=== PATIENT | male | born 1940 | race Caucasian/White ===

== ENCOUNTER 2021-02-04 08:45 | Inpatient (IN) ==
--- NOTE | 2021-02-02 09:10 | Anesthesiology Consultation ---
Date of Service February 02, 2021 Assessment & Plan (1) Encounter for pre-operative examination: PAT note at this time obtained without seeing patient in PAT clinic. Patient originally evaluated at PAT clinic for planned left anterior total hip replacement which was cancelled given priority for planned colon resection. Clearances as below already obtained. Additional reference is PAT note from 01/05/2021 with addendum. Cardiac clearance was obtained for patient's upcoming hip surgery which is now cancelled. Per cardio note 01/07/2021 = patient is considered moderate risk for cardiac complications during proposed surgery. Optimal cardiac monitoring is required during procedure. Cardiac monitoring is required for 1 hour postop. Beta-blockers are to be continued during perioperative period. 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 Per neuro response 01/06/21= it is "acceptable to hold Lovenox 24 hours prior to spinal anesthetic for the total left anterior hip replacement on 02/01/21." (Did call and speak with patient's on 01/07/21 and given instructions that last Lovenox dose will be in the evening on 01/30/21- pt's voices understanding). Per neuro letter 12/31/20= patient "has been cleared to have hip surgery on 02/01/[address] Tillman. We suggest Lovenox 1 mg/kg twice daily for 7 days and to start the first day he is to hold his Pradaxa." Neuro office will be prescribing the medication. (Will attempt to contact neuro office in regards to last dose of Lovenox prior to surgerywe will informed our office that Lovenox usually needs to be held 24 hours prior to surgery in order to get SAB) Last seen by cardio 12/03/20= pt presents for annual follow up. 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 No plans for intervention at this time. Stable BLANK- no chest pain, SOB, syncope, orthopnea, PND, palpitations or edema. Evaluation for both LE venous disease as well as art erial disease which was unremarkable. Continues with localized LE painful and mildly erythematous area. No ulceration. HTN- BP at target. Hyperlipidemia- high risk- continue on statin. Aortic stenosis- continue surveillance ECHOs. 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 CAD- HR and BP at target- no angina- stress test 2019 showed inferior MPI defect including infarct and mild periinfarct ischemia. Prior cath showed only mild CAD which was done for ischemia in same area. A fib- continue current meds. Follow up in six months. (Will send note to cardio inquiring if patient is optimized for surgery). Update from general surgery note: We had a discussion regarding his anticoagulation. They are adamantly against bridging Lovenox. In fact they do not want to go back on Pradaxa. They are aware of associated risks of things such as stroke heart attack emboli etc. I want to plan his surgery for next week so we would be holding his Pradaxa from this day forward anyway however we did discuss bridging Lovenox and again they are aware of the risks but they are not interested in anticoagulation at this point. Chart Review Chart Review: Acceptable Risk for Surgery and Patient NOT seen in Pre Admission Testing History Surgery Operation Date: 02/04/21 11:45 Proposed Procedures p Open Low Anterior Colon Resection - Arben Massey, Height/Weight Height: 5 ft 7 in Weight: 80.739 kg Allergies Allergy/AdvReac Type Severity Reaction Status Date / Time shellfish derived AdvReac Severe VIOLENT Verified 02/01/21 15:07 VOMITING alfuzosin AdvReac Intermediate DROPPED Verified 02/01/21 15:07 BLOOD PRESSURE Medications Home Medications Medication Instructions Recorded Confirmed Last Taken albuterol sulfate 90 mcg/actuation 2 puff INHALATION Q6H PRN g 12/04/20 02/01/21 Unknown aerosol inhaler (Ventolin HFA) atorvastatin 40 mg tablet (Lipitor) 40 mg PO QDD 12/04/20 02/01/21 01/25/21 metoprolol succinate 25 mg 12.5 mg PO QDD tab 12/04/20 02/01/21 01/25/21 tablet,extended release 24 hr (Toprol XL) nitroglycerin 0.4 mg sublingual 0.4 mg SUBLINGUAL Q5M PRN 12/04/20 02/01/21 Unknown tablet (Nitrostat) mirtazapine 15 mg tablet 15 mg PO HS 12/23/20 02/01/21 01/25/21 pantoprazole 40 mg granules 40 mg PO DAILY #30 ea 01/26/21 02/01/21 Unknown delayed-release for susp in packet (Protonix) aspirin 81 mg tablet,delayed 81 mg PO QPM 02/01/21 02/01/21 Unknown release Past Medical History Medical History Aneurysm of MCA Anxiety Aortic stenosis Moderate per 06/04/20 ECHO Arthritis Atrial fibrillation DX'D 06/2019-LOOP ELECTRODE IN PLACE-F/U DR ENGLE On Pradaxa CAD (coronary artery disease) Mild to moderate nonobstructive CAD per 2016 cardiac cath Chronic obstructive pulmonary disease INHALER PRN IN WINTER BREATHING STABLE - AGGREVATED BY ILLNESS Depression Enlarged prostate History of GI bleed recent 01/10/21 Hyperlipidemia Hypertension Mass of colon PAD (peripheral artery disease) S/p CEA (left side-2017) Short-term memory loss Stroke 08/31/2017-HAD TPA- F/U DR MIRNA BUSTAMANTE-SPEECH WAS AFFECTED AT THE TIME-RESOLVED TIA (transient ischemic attack) 05/2011 Past Family History Family History Brother Family history of diabetes mellitus Cancer Diabetes Aunt Breast cancer Father Heart disease Other No family history of adverse response to anesthesia Past Surgical History Surgical History H/O carotid endarterectomy LEFT 09/2017 In [place] History of adenoidectomy History of anesthesia reaction BP DROPPED WITH COLONOSCOPY X 1 History of appendectomy History of cardiac cath X 3-09/2016, 2013, 2011-[facility]-NO STENTS History of cataract surgery R/L History of colonoscopy X 3 History of esophagogastroduodenoscopy (EGD) History of herniorrhaphy R/L INGUINAL History of loop recorder PLACED/PRESENT History of tonsillectomy Patient recently underwent EGD and tolerated MAC well. Social History Smoking Status: Former smoker tobacco type: cigarettes and smokeless tobacco Do You Dip or Chew Tobacco: No (QUIT 3 YEARS AGO) Smoking End Date: QUIT 20 YEARS AGO Hx Alcohol Use: No substance use type: does not use Testing Laboratory Results WBC 8.47 RBC 4.20 Hgb 13.0 Hct 38.9 Platelet 256 PT 13.8 INR 1.4 PTT 50.6 Na 142 K 4 Cl 108 BUN 13 Cr 1.02 Glucose 84 COVID 01/22/2021 negative. 02/02/2021 pending. Electrocardiogram Date: 02/10/21 DICTATED BY: Man Gibson MD Test Reason : Blood Pressure : / mmHG Vent. Rate : 058 BPM Atrial Rate : 058 BPM P-R Int : 184 ms QRS Dur : 126 ms QT Int : 458 ms P-R-T Axes : 047 018 023 degrees QTc Int : 449 ms Sinus bradycardia Right bundle branch block Abnormal ECG On 06/04/2020: ECG shows RBBB and sinus rhythm. Chest X-Ray Date: 01/05/21 Findings: + NAD FINDINGS: PA and lateral chest radiographs are obtained pressure no priors L electronic device projects over the left lower chest. The noting atherosclerotic calcification of the thoracic aorta. The pulmonary vasculature is noncongested. There is focal eventration of the right hemidiaphragm with bibasilar scarring/atelectasis. No airspace consolidation or pleural effusion is identified. There is no pneumothorax. The skeletal structures are osteopenic. The bony thorax appears intact. IMPRESSION: No active disease in the chest. Echocardiogram Date: 06/04/20 EF: 60% LV Function: normal RWMA: + none Mildly dilated left atrium. Mild mitral regurgitation. Aortic valve is moderately calcified. Moderate aortic stenosis with a valve area of 1.09 cm2, AV mean gradient=15 mmHg. Trace tricuspid regurgitation. No aortic regurgitation. Normal right atrium. Trileaflet aortic valve. Normal PA pressure. There is trace tricuspid regurgitation. Normal PA pressure. Read by Dr. Wilian Sidhu. Other Testing Chest CT with contrast 02/01/2021: FINDINGS: There are partially calcified biapical pleural-parenchymal scarlike densities. The central airways are patent. No pneumothorax. No pleural effusions. There is mild to moderate emphysema. There is a 5 mm indeterminate pulmonary nodule within the left lower lobe on image 152. Patchy densities at the base of the left lower lobe are nonspecific but favor atelectasis/dependent change. There is a punctate calcified granuloma within the right upper lobe on image 75. Distended right internal jugular vein is noted. This may be transient from the contrast injection. No suspicious lytic or blastic osseous lesions. Please refer to same day abdomen and pelvis CT for further evaluation of the abdominal structures. A 1.8 cm hypodense lesion within the right hepatic dome favors a cyst. Normal esophagus. 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 This demonstrates up to 75% focal narrowing. There is also moderate to severe narrowing at the takeoff of the brachiocephalic artery also measuring up to 75%. This is due to the calcified plaque at these locat ions. Normal caliber thoracic aorta. The central pulmonary arteries are patent. The heart is normal in size. No pericardial effusion. Dense calcified plaque within the coronary arteries. No mediastinal or right hilar lymphadenopathy. There is a single mildly enlarged left hilar lymph node on image 153. This measures 1.5 x 1.1 cm. Evidence for a loop recorder within the left anterior chest wall. IMPRESSION: 1. A 5 mm indeterminate pulmonary nodule within the left lower lobe. 2. A single mildly enlarged left hilar lymph node measuring 1.5 x 1.1 cm. Follow-up chest CT in 6 months is recommended to evaluate for stability of the subcentimeter pulmonary nodule and left hilar lymph node.. 3. Ojlo-np-cfihgdqu emphysema. 4. 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 5. Please refer to the same day abdomen and pelvis CT for further evaluation of the abdominal structures. Abdomen/pelvis CT 02/01/2021: IMPRESSION: 1. Rectal soft tissue mass compatible with previously noted polyp. No evidence of metastatic disease. 2. Severe atherosclerotic disease. Loop recording 12/05/2020: The presenting rhythm is sinus bradycardia at 50 bpm with a 3.6 sec sinus pause. This is an abnormal implantable loop recorder remote follow-up. No significant device-related abnormalities were noted. We will continue with remote follow-up with ongoing active surveillance and monthly remote interrogation. CTA head and neck 01/14/2020: Impression: No significant change from the previous study of 08/31/2017. Again seen is markedly diminished caliber to the left vertebral artery along with calcified atherosclerotic plaque and narrowing of both interval carotid artery origins. 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 No new processes are detected. Comparison to 08/31/2017. Read by Dr. Saul Delgado. Cardiac catheterization 09/27/2016: Findings: Left main-large caliber and bifurcates into the LAD and left circumflex. No angiographically evident disease. LAD-large caliber entrance atypical. There is an ostial 40 to maybe 50% calcified lesion. Proximal segment has mild diffuse disease less than 30% stenosis. The vessel then gives off a small D1. The midsegment has mild 30% stenosis at the level of the ostium of D2. D2 is large with 50% stenosis. The distal LAD has less than 30% focal stenosis. The LAD and its branches appear angiographically similar to prior catheterization. CX-large caliber nondominant. Resume. The vessel then gives off a large OM1. Continues in the AV groove where it then gives off a large branching OM2. The distal vessel is small to medium in caliber and terminates in a small posterior lateral branch. Circumflex and its branches appear angiographically similar to prior catheterization. RCA-Large caliber dominant. Mild vessel has diffuse mild to moderate disease 30- 40% narrowing. Distal vessel has a focal 40% narrowing. The vessel then bifurcates into the PDA and posterior lateral branches which have no angiographically significant disease. The RCA and its branches appear angiographically similar to prior catheterization. Impression and plan: Mild to moderate nonocclusive coronary disease as described. No angiographic change from prior catheterization.
[~2021-02-04 08:45] MED LIST: HEPARIN SOD 5,000 UNIT/0.5 ML VIAL SQ SCH; LR 15ML/HR IV SCH
[2021-02-04] MEDS ORDERED: ONDANSETRON INJ 2 MG/ML 2 ML VIAL IV PRN ×2 (09:21→18:26)
[2021-02-04] MEDS ORDERED: ALBUTEROL 0.083% NEBU SOLN 3 ML VIAL INH PRN (09:21)
[2021-02-04] MEDS ORDERED: HYDROmorphone INJ 1 MG/ML SYRINGE IV PRN (09:21)
[2021-02-04] MEDS ORDERED: ATROPINE SULFATE 0.1 MG/ML 10ML SYR IV PRN (09:21)
[2021-02-04] MEDS ORDERED: BUPIVACAINE 0.5 % 5 MG/1 ML PF 10ML VIAL ONE (09:33)
--- NOTE | 2021-02-04 10:04 | History & Physical Bridge Note ---
Date of Service February 04, 2021 History & Physical Bridge Note I have examined the patient, reviewed the History & Physical and in the interval since the performance of the History & Physical I have noted the following changes of clinical significance: no changes noted
[2021-02-04 10:08] LABS: Partial Thromboplastin Time 27.6 Seconds (21.0-31.0); Prothrombin Time 10.4 Seconds (9.0-12.0)
[2021-02-04] MEDS ORDERED: EPINEPHrine INJ 1 MG/ML AMP ONE (10:10)
[2021-02-04] MEDS ORDERED: BUPIVACAINE 0.5 % 5 MG/1 ML MPF 30ML VIAL ONE (10:11)
--- NOTE | 2021-02-04 13:47 | Operative Report ---
PG Post Operative Report Pre & Post Diagnosis Operation Date: 02/04/21 10:25 Pre-Op Diagnosis: Colon Mass Post-Op Diagnosis: Colon Mass I identified the patient and participated in the time-out.: Yes Procedure Operation Date: 02/04/21 10:25 Actual Procedures p Open Low Anterior Colon Resection - Arben Massey DO Surgeon Arben Massey DO Customer Success Specialist annalee Serrato Estimated Blood Loss 300 Findings Consistent with Post-Op Diagnosis Specimens rectosigmoid colon Description of Procedure After informed consent was obtained the patient was taken to the operating room and placed in supine position. After successful intubation anesthesia performed a TAP block on the patient. Following this the patient was placed into a low lithotomy position and we shaved and sterilely prepped and draped the entire abdomen as well as perineum. A Mcgee catheter was placed sterilely as well. I began by making a lower midline incision from the pubic symphysis up and around the umbilicus. This was carried down through soft tissue using cautery. Anterior fascia was opened using cautery as well. Peritoneum was elevated with hemostats and incised under direct vision using a Metzenbaum scissor. Incision was then extended to both poles using cautery. Once in the abdomen we set up the Bookwalter retractor which was used throughout the procedure to help with exposure. Once in the abdomen there were a few adhesions involving small bowel in the pelvis. These were taken down using Metzenbaum scissors and finger fractionation. Once this was accomplished the small bowel was packed into the upper abdomen. We began by mobilizing the sigmoid colon along the white line of Toldt using small amounts of cautery and blunt finger dissection. We carried this down to the peritoneal reflection. We were able to identify the tattoo judith deep in the pelvis. I transected the sigmoid colon near the pelvic brim using a BEE purple cartridge stapler. We then used a LigaSure device to come down the mesentery of the sigmoid colon. We continued this down to the peritoneal reflection. I used primarily blunt finger fractionation to mobilize the retrorectal space. We hugged the anterior portion of the sacrum during this process. I took down the lateral pedicles of the rectum using the LigaSure device as well. We also used small amounts of cautery and finger fractionation to free up the rectum anteriorly. Eventually we were able to get down below the tattoo judith. I then transected the rectum using multiple firings of a BEE 30 mm purple cartridge stapler. Once we had the specimen out we passed it off to a back table. I did open it on the back table exposing the mass. Grossly we had negative margins distally. We were probably at about 5 to 6 cm from the anal verge and I did not feel the risk /benefit would warrant trying to get some additional distal margins. I then scrubbed back into the case. We clamped the bowel and opened the staple line exposing the lumen. 2-0 silk was used to create a pursestring. The anvil of a 25 mm circular stapler was placed into the end of the colon and secured using the pursestring. My assistant finance manager then went down to the rectum. He serially dilated the rectum with sizers. The handle of the EEA was then advanced into the rectum to the rectal staple line. The spike was deployed. The anvil was connected to the handle and they were secured together and fired creating a circular functional end-to-end anastomosis. Both donuts were intact. We sent the distal 1 as additional distal margin. We then insufflated the staple line under water using a rigid sigmoidoscope. There was no evidence of an anastomotic leak. We thoroughly irrigated the pelvis. There was adequate hemostasis. A 10 flat Silvio-Calloway drain was placed into the pelvis and brought out through a separate stab incision and secured to the skin using 2-0 nylon. I should mention that after creating the pursestring device and securing the anvil we did change our gloves. A final irrigation of the lower abdomen and pelvis was performed. The fascia was closed using 0-looped PDS starting at either pole running and securing them in the midline. Soft tissue was irrigated and skin was closed using skin [place]. Silver dressing was applied. The patient was awakened ,extubated and transferred to recovery in stable condition. My physician assistant finance manager was present through all parts of the procedure. He was instrumental in exposure throughout my dissection as well as with assisting with the anastomosis wound closure and dressing placement. I attest to the content of the Intraoperative Record and any orders documented therein. Any exceptions are noted below.
--- NOTE | 2021-02-04 14:22 | Anesthesiology Progress Note ---
Date of Service February 04, 2021 Anesthesia Post Procedure Vital Signs Vital Signs: Temp Pulse Pulse Resp BP Pulse Ox 02/04/21 14:15 49 L 24 149/67 H 98 02/04/21 14:05 50 L 20 161/69 H 98 02/04/21 13:55 53 L 19 162/68 H 95 02/04/21 13:45 58 L 19 144/71 H 94 02/04/21 13:39 97.3 F L 56 L 12 163/73 H 94 02/04/21 09:29 98.1 F 57 L 20 131/61 95 Pain Intensity Abdomen: Pain Intensity: 2 Transfer of Care Handoff Completed per policy Notes Mental Status: alert / awake / arousable Patient Amnestic to Procedure: Yes Nausea / Vomiting: adequately controlled Pain: adequately controlled Airway Patency, RR, SpO2: stable & adequate BP & HR: stable & adequate Hydration State: stable & adequate Anesthetic Complications: no major complications apparent and Pt Satisfied with anesthetic care
[2021-02-04] MEDS ORDERED: ceFAZolin 2000MG 2,000 MG/15 ML SYR IV ONE (16:31)
[2021-02-04] MEDS ORDERED: ALBUTEROL HFA 8 GM INHALER INH PRN (18:26)
[2021-02-04] MEDS ORDERED: NITROGLYCERIN SL 0.4 MG/TAB TAB SL PRN (18:26)
[2021-02-04] MEDS: LACTATED RINGER'S 1,000 ML IV SCH (19:55)
[2021-02-04] MEDS: MoRPHine SULFATE 4 MG/ML 1 ML CARP\\VIAL IV PRN (20:27)
[2021-02-04 20:41] LABS: Hematocrit (blood only) 39.1 % (42-52); Hemoglobin 12.8 g/dL (14.0-18.0); Immature Granulocytes # (auto) 0.03 K/uL (0.00-0.02); Immature Granulocytes % (auto) 0.2 %; Lymphocytes # (auto) 0.77 K/uL (1.2-3.4); Lymphocytes % (auto) 4.6 %; Mean Corpuscular Hemoglobin 30.2 pg (25-34); Mean Corpuscular Hgb Conc 32.7 g/dL (32-36); Mean Corpuscular Volume 92.2 fL (80-100); Mean Platelet Volume 10.2 fL (7.4-10.4); Monocytes # (auto) 1.23 K/uL (0.11-0.59); Monocytes % (auto) 7.3 %; Neutrophils # (auto) 14.84 K/uL (1.4-6.5); Neutrophils % (auto) 87.9 %; Platelet Count 279 K/uL (130-400); RDW Coefficient of Variation 13.5 % (11.5-14.5); RDW Standard Deviation 45.5 fL (36.4-46.3); Red Blood Count 4.24 M/uL (4.7-6.1); White Blood Count 16.87 K/uL (4.8-10.8)
--- NOTE | 2021-02-04 20:51 | XRay Report ---
SINGLE VIEW CHEST CLINICAL HISTORY: Hypoxia FINDINGS: An AP, portable, upright chest radiograph is compared to study dated 01/05/2021 and correlat ed with chest CT dated 02/01/2021. The cardiomediastinal silhouette is unremarkable noting atheroscler otic calcification of the thoracic aorta. Emphysema and chronic interstitial thickening is similar to previous. Calcified pleural parenchymal scarring is present at the apices. Small pleural effusions a re noted with bibasilar atelectasis. No pneumothorax is seen. The skeletal structures are osteopenic. The bony thorax is grossly intact. IMPRESSION: 1. Emphysema. 2. Small pleural effusions with bibasilar atelectasis. ACT 112: Negative or not required by law. Electronically signed by: Denny Dailey M.D. 02/04/2021 8:50 PM
[2021-02-04 20:59] LABS: Albumin Level 3.1 gm/dl (3.4-5.0); BUN Creatinine Ratio 9.2 (10-20); Calcium 8.7 mg/dl (8.5-10.1); Creatinine Clr Calc Pharmacy 50.4 ml/min; Est GFR (African American) 67.1 ml/min; Est GFR (Non-African American) 57.9 ml/min; Potassium 3.8 mmol/L (3.5-5.1)
[2021-02-04 21:02] LABS: Albumin Globulin Ratio 0.9 (0.9-2); Bilirubin,Total 0.5 mg/dl (0.2-1); Globulin 3.4 gm/dl (2.5-4.0); Total Protein 6.5 gm/dl (6.4-8.2)
[2021-02-04] MEDS: METOPROLOL SUCC 25MG EXT REL TAB PO SCH (21:43)
[2021-02-04] MEDS: ASPIRIN 81 MG ECTAB PO SCH (21:44)
[2021-02-04] MEDS: ATORVASTATIN 40 MG TAB PO SCH (21:44)
--- NOTE | 2021-02-04 22:23 | Hospitalist Consultation ---
Date of Consultation February 04, 2021 Assessment & Plan (1) Hypertension: 80 yo M w/ pMHx. of OA, COPD, MCA aneurysm, colon cancer, moderate , H/O carotid endarterectomy and PAD who is hospitalized for colectomy Hypoxia in the post operative setting requiring 3L NC with Hx. of COPD with no home O2 requirement patient is splinting on exam and likely has atelectasis vs. respiratory depression from pain medication or a mixed picture slightly soft BP currently at 99/64, HR 66 w/ leukocytosis to 16.8 in the post operative setting - XR with findings of emphysema and atelectasis - IS device given - continue to titrate oxygen and monitor WBC for signs of infection COPD Hx. with no wheezing on exam and no home controller medications - continue with as needed Albuterol s/p colectomy - pain control with Dilaudid, Morphine and Tylenol - care per. primary team - follow hgb HTN - continue home Metoprolol , moderate without aortic regurgitation on ECHO from 06/03/20 - fluids at 100/hr HLD - continue Atorvastatin PAD - restart ASA per primary team Code: DNR DNI (discussed with patient and he explained that these are his wishes and he has a living will) Diet: NPO DVT: per primary team - SCD's currently (2) PAD (peripheral artery disease): (3) H/O carotid endarterectomy: (4) Colonic mass: (5) Colon cancer: (6) Aortic stenosis, moderate: (7) Osteoarthritis of left hip: Supervising Physician Co-Signing Physician Notes Attending Addendum: I have physically seen and examined this patient, have supervised the medical residents activities, and agree with the H&P as noted above with the following exceptions as noted. Status post colectomy- Pain control post surgery per primary service Postoperative hypoxia/COPD- X-ray without signs of infection Likely secondary to recovery from operative medications Continue oxygen supplementation as noted, IS device Albuterol nebulizers every 2 hours as needed Hypertension/aortic stenosis- Continue metoprolol Continue IV fluids as noted Remaining orders and notations as noted History of Present Illness Reason for Consultation: HTN and aortic stenosis Requesting Physician: Dr. Massey Attending Physician: Arben Massey, DO History of Present Illness Andrzej Degroot is a 80-year-old male with a past medical history significant for OA, COPD, MCA aneurysm, colon cancer, moderate , H/O carotid endarterectomy and PAD who is in the hospital for a colectomy. He was feeling tired but otherwise well when I saw him this evening. He was not in pain when he was sitting still but did have abdominal pain when he moved. He brought up that he was scheduled for a left hip replacement when he was found to have a mass and lead to his surgery. He has a history of tobacco use for 50 years but none currently. He drinks one glass of wine per night and has no recreational drug use. He is not on oxygen at home and admits some shortness of breath when he is walking up stairs at home but denies any recent URI symptoms or sputum production or cough. Allergies Allergy/AdvReac Type Severity Reaction Status Date / Time shellfish derived AdvReac Severe VIOLENT Verified 02/04/21 09:24 VOMITING alfuzosin AdvReac Intermediate DROPPED Verified 02/04/21 09:24 BLOOD PRESSURE Home Medications Medication Instructions Recorded Confirmed Type albuterol sulfate 90 mcg/actuation 2 puff INHALATION Q6H PRN g 12/04/20 02/04/21 History aerosol inhaler (Ventolin HFA) atorvastatin 40 mg tablet (Lipitor) 40 mg PO QDD 12/04/20 02/04/21 History metoprolol succinate 25 mg 12.5 mg PO QDD tab 12/04/20 02/04/21 History tablet,extended release 24 hr (Toprol XL) nitroglycerin 0.4 mg sublingual 0.4 mg SUBLINGUAL Q5M PRN 12/04/20 02/04/21 History tablet (Nitrostat) mirtazapine 15 mg tablet (Remeron) 15 mg PO HS 12/23/20 02/04/21 History pantoprazole 40 mg granules 40 mg PO DAILY #30 ea 01/26/21 02/04/21 Rx delayed-release for susp in packet (Protonix) aspirin 81 mg tablet,delayed 81 mg PO QPM 02/01/21 02/04/21 History release Patient History Medical History (Updated 02/05/21 @ 15:12 by Josesito English MD) Aneurysm of MCA Anxiety Aortic stenosis Moderate per 06/04/20 ECHO Arthritis Atrial fibrillation DX'D 06/2019-LOOP ELECTRODE IN PLACE-F/U DR ENGLE On Pradaxa CAD (coronary artery disease) Mild to moderate nonobstructive CAD per 2017 cardiac cath Chronic obstructive pulmonary disease INHALER PRN IN WINTER BREATHING STABLE - AGGREVATED BY ILLNESS Depression Enlarged prostate History of GI bleed recent 01/10/21 Hyperlipidemia Hypertension Mass of colon PAD (peripheral artery disease) S/p CEA (left side-2017) Short-term memory loss Stroke 08/31/2017-HAD TPA- F/U DR MIRNA ZUNIGA BELLE-SPEECH WAS AFFECTED AT THE TIME-RESOLVED TIA (transient ischemic attack) 05/2011 Surgical History (Updated 02/05/21 @ 08:56 by Lindsey Jesus, [place]) H/O carotid endarterectomy LEFT 09/2017 In [place] History of adenoidectomy History of anesthesia reaction BP DROPPED WITH COLONOSCOPY X 1 History of appendectomy History of cardiac cath X 3-09/2016, 2013, 2011-[facility]-NO STENTS History of cataract surgery R/L History of colon resection (02/04/21) Open Low Anterior Colon Resection Dr. Massey 02-04-2021 History of colonoscopy X 3 History of esophagogastroduodenoscopy (EGD) History of herniorrhaphy R/L INGUINAL History of loop recorder PLACED/PRESENT History of tonsillectomy Family History Brother Family history of diabetes mellitus Cancer Diabetes Aunt Breast cancer Father Heart disease Other No family history of adverse response to anesthesia Social History Smoking Status: Former smoker packs per day: 1; Second Hand Exposure: Yes; Hx Alcohol Use: Yes Alcohol type: wine Hx Substance Use: No Preferred Language: Tamazight Communication Ability: Effective Iron Miner Required: No Beliefs That Will Affect Care: Synagogue Synagogue Beliefs: Christian marital status: Current Living Situation: Parent current occupational status: retired How many Children do You have: 3 Feels Safe at Home: Yes Assistive Devices: Cane Review of Systems Review of Systems: Constitutional: denies fevers, chills, nausea, vomiting, night sweats, weight loss Head: denies trauma, LOC, vision changes ENT: denies rhinorrhea, stuffiness, sneezing, sore throat Cardiac: denies chest pain, palpitations admits some right ankle swelling Pulm.: denies cough, sputum production admits shortness of breath with stairs GI: denies diarrhea, constipation admits blood in stool prior to hospitalization : denies pain or urgency admits frequency Physical Exam Constitutional: WD/WN, vitals as above Eyes: PERRL, conjunctivae normal, anicteric sclerae ENMT: external ear and nose normal, oropharynx normal Neck: normal visual inspection Respiratory: - no increased work of breathing - splinting - lungs clear with diminished bases Cardiovascular: Rate/Rhythm: regular rate - systolic murmur appreciated 2 Gastrointestinal (Abdomen): - decreased bowel sounds - bandage in place c/d/i - drain with serosanguineous drainage Skin: no rashes, warm and dry Neurologic: Speech / Cognition: normal speech Psychiatric: A+Ox3, euthymic affect Results & Data Results & Data ([facility]) Vital Signs (Past 12 Hours) Vital Signs Temp Pulse Pulse Resp BP Pulse Ox 02/04/21 21:00 66 99/64 L 93 02/04/21 20:30 75 106/63 91 02/04/21 20:05 69 101/58 L 93 02/04/21 19:55 67 119/72 92 02/04/21 19:40 76 110/70 93 02/04/21 19:36 36.6 C 73 20 122/74 92 02/04/21 19:25 74 120/62 92 02/04/21 19:10 72 131/75 91 02/04/21 19:04 97 H 02/04/21 18:00 69 22 109/59 L 92 02/04/21 17:45 64 22 113/58 L 92 02/04/21 17:30 64 22 107/56 L 93 02/04/21 17:15 66 24 113/58 L 93 02/04/21 17:00 57 L 18 120/58 L 93 02/04/21 16:45 36.2 C L 64 22 117/61 94 02/04/21 16:30 61 21 128/63 94 02/04/21 16:15 59 L 21 127/54 L 94 02/04/21 16:00 64 24 128/56 L 94 02/04/21 15:45 58 L 22 127/62 94 02/04/21 15:30 54 L 22 105/53 L 93 02/04/21 15:15 50 L 19 142/61 H 94 02/04/21 15:00 51 L 22 145/60 H 94 02/04/21 14:45 51 L 20 147/66 H 95 02/04/21 14:35 36.0 C L 51 L 20 147/64 H 95 02/04/21 14:25 51 L 20 131/64 95 02/04/21 14:15 49 L 24 149/67 H 98 02/04/21 14:05 50 L 20 161/69 H 98 02/04/21 13:55 53 L 19 162/68 H 95 02/04/21 13:45 58 L 19 144/71 H 94 02/04/21 13:39 36.3 C L 56 L 12 163/73 H 94 CBC Results Results Complete Blood Count Results: RBC 3.97 M/uL (4.7-6.1) L 02/05/21 WBC 13.09 K/uL (4.8-10.8) H 02/05/21 Hgb 11.8 g/dL (14.0-18.0) L 02/05/21 Hct 36.1 % (42-52) L 02/05/21 Plt Count 278 K/uL (130-400) 02/05/21 Chemistry (BMP) Results BMP Results: Sodium 138 mmol/L (136-145) 02/05/21 Potassium 4.4 mmol/L (3.5-5.1) 02/05/21 Chloride 106 mmol/L (98-107) 02/05/21 BUN 11 mg/dl (7-18) 02/05/21 Creatinine 1.13 mg/dl (0.6-1.4) 02/05/21 Glucose 132 mg/dl (70-99) H 02/05/21 Resident Activity Tracking Resident Involvement: Resident Care Provided Care Provided: Adult [facility] Medicine
[2021-02-05] MEDS: ACETAMINOPHEN 1,000 MG/100 ML VIAL IV PRN ×2 (00:18→13:27)
[2021-02-05] MEDS: MoRPHine SULFATE 2 MG/ML CARP IV PRN ×5 (04:08→20:22)
[2021-02-05] MEDS: LACTATED RINGER'S 1,000 ML IV SCH ×2 (04:09→16:57)
[2021-02-05 07:20] LABS: Basophils # (auto) 0.01 K/uL (0-0.2); Basophils % (auto) 0.1 %; Hematocrit (blood only) 36.1 % (42-52); Hemoglobin 11.8 g/dL (14.0-18.0); Immature Granulocytes # (auto) 0.04 K/uL (0.00-0.02); Immature Granulocytes % (auto) 0.3 %; Lymphocytes # (auto) 1.49 K/uL (1.2-3.4); Lymphocytes % (auto) 11.4 %; Mean Corpuscular Hemoglobin 29.7 pg (25-34); Mean Corpuscular Hgb Conc 32.7 g/dL (32-36); Mean Corpuscular Volume 90.9 fL (80-100); Mean Platelet Volume 9.9 fL (7.4-10.4); Monocytes # (auto) 1.63 K/uL (0.11-0.59); Monocytes % (auto) 12.5 %; Neutrophils # (auto) 9.92 K/uL (1.4-6.5); Neutrophils % (auto) 75.7 %; Platelet Count 278 K/uL (130-400); RDW Coefficient of Variation 13.5 % (11.5-14.5); Red Blood Count 3.97 M/uL (4.7-6.1); White Blood Count 13.09 K/uL (4.8-10.8)
[2021-02-05 07:52] LABS: BUN Creatinine Ratio 9.6 (10-20); Calcium 8.7 mg/dl (8.5-10.1); Creatinine Clr Calc Pharmacy 52.9 ml/min; Est GFR (African American) 70.8 ml/min; Est GFR (Non-African American) 61.1 ml/min; Potassium 4.4 mmol/L (3.5-5.1)
--- NOTE | 2021-02-05 08:02 | Surgery Progress Note ---
Date of Service February 05, 2021 Assessment & Plan (1) Colonic mass: Plan: POD 1 doing well so far ice chips only for now Keep lees until bm Dr. Krishnamurthy covering for weekend. Admission and Anticipated Discharge Date Admission Date: February 04, 2021 Subjective pt seen. having expected pain but no major complaints. Physical Exam Physical Exam: alert. nad abd: dressings dry. BRIAN serous. lees yellow. Results & Data ([facility]) Vital Signs (Past 12 Hours) Vital Signs Temp Pulse Pulse Resp BP Pulse Ox 02/05/21 06:39 92 02/05/21 03:37 36.8 C 69 17 117/65 92 02/05/21 00:00 70 10 L 102/64 92 02/04/21 23:59 79 02/04/21 23:00 36.8 C 65 15 100/64 92 02/04/21 22:30 66 108/68 91 02/04/21 22:00 64 98/61 L 89 L 02/04/21 21:30 71 92/60 L 92 02/04/21 21:00 66 99/64 L 93 02/04/21 20:30 75 106/63 91 02/04/21 20:05 71 69 101/58 L 93 PG Care Time/CCT Total # of Minutes Spent Total Time Spent with Patient: Total time spent is greater than 50% in coordination of care (as documented) at patient's floor/unit and/or counseling patient: Coding Level of Care Code None Diagnoses Colonic mass K63.89
[2021-02-05] MEDS: PANTOprazole 40 MG TAB PO SCH (08:07)
--- NOTE | 2021-02-05 10:01 | Electrocardiogram Report ---
Test Reason : Blood Pressure : / mmHG Vent. Rate : 068 BPM Atrial Rate : 068 BPM P-R Int : 146 ms QRS Dur : 122 ms QT Int : 432 ms P-R-T Axes : 032 020 010 degrees QTc Int : 459 ms Normal sinus rhythm Right bundle branch block Abnormal ECG When compared with ECG of 10-JAN-2021 11:11, No significant change was found Confirmed by Saul Martinez ([id number]) on 02/05/2021 10:00:38 AM Referred By: Arben Massey Confirmed By:Saul Martinez
--- NOTE | 2021-02-05 13:52 | Hospitalist Progress Note ---
Date of Service February 05, 2021 Assessment & Plan (1) Acute respiratory failure with hypoxia: Plan: 80 yo M w/ pMHx. of OA, COPD, MCA aneurysm, colon cancer, moderate , H/O carotid endarterectomy and PAD who is hospitalized for colectomy - Hypoxia in the post operative setting requiring 3L NC with Hx. of COPD with no home O2 requirement - Wean to SpO2 > 90% - Patient is splinting on initial post-op exam ?atelectasis vs. respiratory depression from pain medication or a mixed picture -WBC 16-->13 post-op, trend - CXR with emphysema, ?atelectasis, and new small pleural effusions. Pt with hx of mod . - CT prior with no effusions - Continue Flutter, inspiratory spirometry, titrate SpO2 - Defer abx at this time - Duonebs PRN for wheezing - BNP pending, ECHO 06/11 with EF 60%, moderate , mild LA dilation. (2) Hypertension: Plan: HTN - continue home Metoprolol - Normotensive on exam (3) PAD (peripheral artery disease): Plan: PAD - restart ASA per primary team (4) H/O carotid endarterectomy: Plan: - ASA, statin (5) Colon cancer: Plan: s/p colectomy - pain control with Dilaudid, Morphine and Tylenol - care per. primary team - follow hgb (6) Aortic stenosis, moderate: Plan: , moderate without aortic regurgitation on ECHO from 06/03/20 - ?mild pulm congestions --> decrease IVFM rate/hold (7) Chronic obstructive pulmonary disease: Plan: Hx COPD/emphysema - COPD Hx. with no wheezing on exam and no home controller medications - continue with as needed Albuterol - May followup with pulm on outpt. Pt will also require 6mo CT f/u for L hilar adenopathy. (8) Hyperlipidemia: Plan: HLD - continue Atorvastatin (9) Lymphadenopathy, hilar: Plan: - f/u outpt with pulm for emphysema as above, repeat CT scan in ~6months Plan: Code: DNR DNI (discussed with patient and he explained that these are his wishes and he has a living will) Diet: Ice chips, per primary team DVT: per primary team - SCD's currently Admission and Anticipated Discharge Date Admission Date: February 04, 2021 Subjective Sosa the bedside this morning. He reports he feels well, is slightly tender over his postsurgical site but otherwise is in no pain. Denies difficulty breathing, and reports he is comfortable in bed. Denies shortness of breath, chest pain, chest pressure, fever, chills, sweats, lightheadedness, dizziness. He reports that he has had some ankle swelling in the past, but generally does not have problems with fluid and to his knowledge his not had CHF in the past. He does have moderate aortic stenosis. Review of Systems Review of Systems: Negative except as noted in HPI Physical Exam Physical Exam: General: A&Ox3. NAD. Cooperative. HEENT: Atraumatic, normocephalic. Daily grossly intact, hearing grossly intact. Pulm: Managed at the bases with moderate air movement but grossly CTAB A&P. - wheezes, -rales, -rhonchi. Symmetrical chest rise. No increase work of breathing. No respiratory distress. Cardiac: RRR, systolic murmur present. Radial pulses intact and symmetrical. 1+ edema bilaterally, PT pulse intact bilaterally Abdominal: Nontender, nondistended, soft. BS present. Extremities: Mild lower extremity edema as noted in cardiac, otherwise hands and feet warm and dry with sensation intact to soft touch. Results & Data Results & Data ([facility]) Vital Signs (Past 12 Hours) Vital Signs Temp Pulse Pulse Resp BP BP Pulse Ox 02/05/21 12:14 36.7 C 76 20 111/75 91 02/05/21 08:01 36.5 C 69 20 132/63 93 02/05/21 08:00 65 02/05/21 06:39 92 02/05/21 03:37 36.8 C 69 17 117/65 92 PG Care Time/CCT Total # of Minutes Spent Total Time Spent with Patient: Total time spent is greater than 50% in coordination of care (as documented) at patient's floor/unit and/or counseling patient: Coding Level of Care Code 22799 Inpt Consult Level 3 Diagnoses Hypertension I10 PAD (peripheral artery disease) I73.9 H/O carotid endarterectomy Z98.890 Colon cancer C18.9 Aortic stenosis, moderate I35.0 Chronic obstructive pulmonary disease J44.9 Hyperlipidemia E78.5 Acute respiratory failure with hypoxia J96.01 Lymphadenopathy, hilar R59.0
[2021-02-05] MEDS ORDERED: ALBUT/IPRATROP 3MG/0.5MG NEB 3 ML VIAL NEB PRN (15:15)
[2021-02-05] MEDS: ATORVASTATIN 40 MG TAB PO SCH (16:58)
[2021-02-05] MEDS: METOPROLOL SUCC 25MG EXT REL TAB PO SCH (16:58)
[2021-02-05] MEDS: ENOXAPARIN INJ 30 MG/0.3 ML SYR SQ SCH (18:16)
--- NOTE | 2021-02-05 19:35 | Billing Data ---
Date of Service February 05, 2021 Coding Level of Care Code 78705 Inpt Consult Level 3
[2021-02-05] MEDS: ASPIRIN 81 MG ECTAB PO SCH (20:22)
[2021-02-06] MEDS: MoRPHine SULFATE 4 MG/ML 1 ML CARP\\VIAL IV PRN (01:21)
[2021-02-06] MEDS: LACTATED RINGER'S 1,000 ML IV SCH ×3 (01:21→21:30)
[2021-02-06] MEDS: ACETAMINOPHEN 1,000 MG/100 ML VIAL IV PRN (01:27)
[2021-02-06] MEDS: MoRPHine SULFATE 2 MG/ML CARP IV PRN ×5 (03:29→23:25)
[2021-02-06 07:06] LABS: Basophils # (auto) 0.03 K/uL (0-0.2); Basophils % (auto) 0.3 %; Eosinophils % (auto) 1.1 %; Hematocrit (blood only) 31.7 % (42-52); Hemoglobin 10.1 g/dL (14.0-18.0); Immature Granulocytes # (auto) 0.02 K/uL (0.00-0.02); Immature Granulocytes % (auto) 0.2 %; Lymphocytes # (auto) 2.07 K/uL (1.2-3.4); Lymphocytes % (auto) 22.7 %; Mean Corpuscular Hemoglobin 29.1 pg (25-34); Mean Corpuscular Hgb Conc 31.9 g/dL (32-36); Mean Corpuscular Volume 91.4 fL (80-100); Mean Platelet Volume 10.1 fL (7.4-10.4); Monocytes # (auto) 1.26 K/uL (0.11-0.59); Monocytes % (auto) 13.8 %; Neutrophils # (auto) 5.63 K/uL (1.4-6.5); Neutrophils % (auto) 61.9 %; Platelet Count 228 K/uL (130-400); RDW Coefficient of Variation 13.9 % (11.5-14.5); RDW Standard Deviation 45.6 fL (36.4-46.3); Red Blood Count 3.47 M/uL (4.7-6.1); White Blood Count 9.11 K/uL (4.8-10.8)
[2021-02-06 07:30] LABS: BUN Creatinine Ratio 11.2 (10-20); Calcium 8.3 mg/dl (8.5-10.1); Creatinine Clr Calc Pharmacy 63.9 ml/min; Est GFR (African American) 87.3 ml/min; Est GFR (Non-African American) 75.3 ml/min; Potassium 4.1 mmol/L (3.5-5.1)
--- NOTE | 2021-02-06 07:30 | Surgery Progress Note ---
Date of Service February 06, 2021 Assessment & Plan (1) History of colon resection: Plan: Patient's vital signs are stable heart rate is normal his blood pressure is slightly low His H&H is stable He is awake and alert Minimal pain His abdomen is distended with decreased bowel sounds Good clear urine output Minimal drainage Continue IV fluids and check a.m. labs Ice chips only for now Leave Mcgee Try to begin to mobilize asked for some PT and OT Admission and Anticipated Discharge Date Admission Date: February 04, 2021 Results & Data ([facility]) Vital Signs (Past 12 Hours) Vital Signs Temp Pulse Pulse Resp BP Pulse Ox 02/06/21 03:57 36.8 C 62 18 99/63 L 90 02/05/21 22:49 36.9 C 68 18 89/52 L 90 02/05/21 22:20 64 PG Care Time/CCT Total # of Minutes Spent Total Time Spent with Patient: Total time spent is greater than 50% in coordination of care (as documented) at patient's floor/unit and/or counseling patient: Coding Level of Care Code None Diagnoses History of colon resection Z90.49
[2021-02-06] MEDS: PANTOprazole 40 MG TAB PO SCH (08:27)
--- NOTE | 2021-02-06 14:21 | Hospitalist Progress Note ---
Date of Service February 06, 2021 Assessment & Plan (1) Acute respiratory failure with hypoxia: Plan: 80 yo M w/ pMHx. of OA, COPD, MCA aneurysm, colon cancer, moderate , H/O carotid endarterectomy and PAD who is hospitalized for colectomy - Hypoxia in the post operative setting requiring 3L NC with Hx. of COPD with no home O2 requirement - Wean to SpO2 > 90% - Patient is splinting on initial post-op exam ?atelectasis vs. respiratory depression from pain medication or a mixed picture -WBC 16-->13 post-op, trend. Resolved/normalized 02/06 - CXR with emphysema, ?atelectasis, and new small pleural effusions. Pt with hx of mod . - CT prior with no effusions - Continue Flutter, inspiratory spirometry, titrate SpO2 - Defer abx at this time - Duonebs PRN for wheezing - BNP normal, ECHO 06/11 with EF 60%, moderate , mild LA dilation. Breathing on room air at morning assessment, 2 L on afternoon assessment. Patient seems to improve with deep breaths and inspiratory spirometry, suspect atelectatic hypoxia with some contribution of pleural effusion likely related to fluid and moderate (2) Hypertension: Plan: HTN - continue home Metoprolol - Normotensive on exam (3) PAD (peripheral artery disease): Plan: PAD - restart ASA per primary team (4) H/O carotid endarterectomy: Plan: - ASA, statin (5) Colonic mass: (6) Colon cancer: Plan: s/p colectomy - pain control with Dilaudid, Morphine and Tylenol - care per. primary team - follow hgb (7) Aortic stenosis, moderate: Plan: , moderate without aortic regurgitation on ECHO from 06/03/20 - ?mild pulm congestions --> decrease IVFM rate/hold (8) Osteoarthritis of left hip: (9) Chronic obstructive pulmonary disease: Plan: Hx COPD/emphysema - COPD Hx. with no wheezing on exam and no home controller medications - continue with as needed Albuterol - May followup with pulm on outpt. Pt will also require 6mo CT f/u for L hilar adenopathy. (10) Hyperlipidemia: Plan: HLD - continue Atorvastatin (11) Lymphadenopathy, hilar: Plan: - f/u outpt with pulm for emphysema as above, repeat CT scan in ~6months Plan: Code: DNR DNI (discussed with patient and he explained that these are his wishes and he has a living will) Diet: Ice chips, per primary team DVT: per primary team - SCD's currently Admission and Anticipated Discharge Date Admission Date: February 04, 2021 Bryn Donnelly is seen at the bedside this morning. He reports he feels overall well, would like something to drink but understand surgery has recommended he remain only on ice chips at this time. Has some abdominal discomfort, otherwise denies pain. Denies chest pain, chest pressure, shortness of breath, difficulty breathing. On room air at time of morning assessment, 2 L at time of afternoon assessment. Review of Systems Review of Systems: 10 point review of systems negative except as in HPI Physical Exam Physical Exam: General: A&Ox3. NAD. Cooperative. HEENT: Atraumatic, normocephalic. Visual acuity grossly intact, hearing grossly intact. Pulm: Diminished in the bases, moderate to good air movement, grossly CTAB A&P. -wheezes, -rales, -rhonchi. Symmetrical chest rise. No increase work of breathing. No respiratory distress. Cardiac: RRR, systolic murmur present. Radial pulses intact and symmetrical. 1+ edema bilaterally, PT pulse intact bilaterally Abdominal: Distended, diffuse mild tenderness without focal tenderness or rebound, no rigidity/guarding. Extremities: hands and feet warm and dry with sensation intact to soft touch. Results & Data Results & Data ([facility]) Vital Signs (Past 12 Hours) Vital Signs Temp Pulse Resp BP Pulse Ox 02/06/21 11:38 36.3 C L 63 18 128/67 91 02/06/21 07:33 36.7 C 60 17 124/64 90 02/06/21 03:57 36.8 C 62 18 99/63 L 90 PG Care Time/CCT Total # of Minutes Spent Total Time Spent with Patient: Total time spent is greater than 50% in coordination of care (as documented) at patient's floor/unit and/or counseling patient: Coding Level of Care Code 45617 Subseq Hosp Care Lvl 2 Diagnoses Hypertension I10 PAD (peripheral artery disease) I73.9 H/O carotid endarterectomy Z98.890 Colonic mass K63.89 Colon cancer C18.9 Aortic stenosis, moderate I35.0 Osteoarthritis of left hip M16.12 Acute respiratory failure with hypoxia J96.01 Chronic obstructive pulmonary disease J44.9 Hyperlipidemia E78.5 Lymphadenopathy, hilar R59.0
[2021-02-06] MEDS: METOPROLOL SUCC 25MG EXT REL TAB PO SCH (16:16)
[2021-02-06] MEDS: ATORVASTATIN 40 MG TAB PO SCH (16:16)
[2021-02-06] MEDS: ENOXAPARIN INJ 30 MG/0.3 ML SYR SQ SCH (18:07)
[2021-02-06] MEDS: ASPIRIN 81 MG ECTAB PO SCH (19:56)
[2021-02-07] MEDS: MoRPHine SULFATE 2 MG/ML CARP IV PRN ×2 (02:35→16:03)
--- NOTE | 2021-02-07 06:29 | Surgery Progress Note ---
Date of Service February 07, 2021 Assessment & Plan (1) History of colon resection: Plan: Patient awake and alert Vital signs stable Passed some flatus, no bowel movement yet Abdomen is softer He walked 80 feet with physical therapist We will try some clear liquids Decrease IV Regular floor Admission and Anticipated Discharge Date Admission Date: February 04, 2021 Results & Data ([facility]) Vital Signs (Past 12 Hours) Vital Signs Temp Pulse Pulse Resp BP Pulse Ox 02/07/21 04:00 36.7 C 73 16 127/71 90 02/07/21 00:00 69 02/06/21 22:00 36.8 C 62 18 126/69 93 02/06/21 19:43 37.0 C 63 19 103/56 L 92 PG Care Time/CCT Total # of Minutes Spent Total Time Spent with Patient: Total time spent is greater than 50% in coordination of care (as documented) at patient's floor/unit and/or counseling patient: Coding Level of Care Code None Diagnoses History of colon resection Z90.49
[2021-02-07 07:04] LABS: Basophils # (auto) 0.03 K/uL (0-0.2); Basophils % (auto) 0.3 %; Eosinophils # (auto) 0.15 K/uL (0-0.5); Eosinophils % (auto) 1.6 %; Hematocrit (blood only) 35.3 % (42-52); Hemoglobin 11.5 g/dL (14.0-18.0); Immature Granulocytes # (auto) 0.03 K/uL (0.00-0.02); Immature Granulocytes % (auto) 0.3 %; Lymphocytes # (auto) 1.95 K/uL (1.2-3.4); Lymphocytes % (auto) 21.1 %; Mean Corpuscular Hemoglobin 29.6 pg (25-34); Mean Corpuscular Hgb Conc 32.6 g/dL (32-36); Monocytes # (auto) 1.02 K/uL (0.11-0.59); Neutrophils # (auto) 6.07 K/uL (1.4-6.5); Neutrophils % (auto) 65.7 %; Platelet Count 269 K/uL (130-400); RDW Coefficient of Variation 13.8 % (11.5-14.5); RDW Standard Deviation 45.9 fL (36.4-46.3); Red Blood Count 3.88 M/uL (4.7-6.1); White Blood Count 9.25 K/uL (4.8-10.8)
[2021-02-07 07:25] LABS: BUN Creatinine Ratio 14.1 (10-20); Calcium 8.8 mg/dl (8.5-10.1); Creatinine Clr Calc Pharmacy 72.3 ml/min; Est GFR (African American) 95.8 ml/min; Est GFR (Non-African American) 82.7 ml/min; Potassium 3.5 mmol/L (3.5-5.1)
[2021-02-07] MEDS: LACTATED RINGER'S 1,000 ML IV SCH ×2 (07:29→20:17)
[2021-02-07] MEDS ORDERED: LACTATED RINGER'S 250 ML IV ONE (07:34)
[2021-02-07] MEDS: POTASSIUM CHLORIDE CRTAB 20 MEQ TABCR PO SCH ×2 (11:05→20:20)
[2021-02-07] MEDS: PANTOprazole 40 MG TAB PO SCH (11:05)
--- NOTE | 2021-02-07 11:41 | Hospitalist Progress Note ---
Date of Service February 07, 2021 Assessment & Plan (1) Acute respiratory failure with hypoxia: Plan: 80 yo M w/ pMHx. of OA, COPD, MCA aneurysm, colon cancer, moderate , H/O carotid endarterectomy and PAD who is hospitalized for colectomy - Hypoxia in the post operative setting requiring 3L NC with Hx. of COPD with no home O2 requirement - Wean to SpO2 > 90% - Patient is splinting on initial post-op exam ?atelectasis vs. respiratory depression from pain medication or a mixed picture -WBC 16-->13 post-op, trend. Resolved/normalized 02/06 - CXR with emphysema, ?atelectasis, and new small pleural effusions. Pt with hx of mod . - CT prior with no effusions - Continue Flutter, inspiratory spirometry, titrate SpO2 - Defer abx at this time - Duonebs PRN for wheezing - BNP normal, ECHO 06/11 with EF 60%, moderate , mild LA dilation. Breathing on room air at morning assessment, 2 L on afternoon assessment. Patient seems to improve with deep breaths and inspiratory spirometry, suspect atelectatic hypoxia with some contribution of pleural effusion likely related to fluid and moderate (2) Hypertension: Plan: HTN - continue home Metoprolol - Normotensive on exam (3) PAD (peripheral artery disease): Plan: PAD - restart ASA per primary team (4) H/O carotid endarterectomy: Plan: - ASA, statin (5) Colonic mass: (6) Colon cancer: Plan: s/p colectomy - pain control with Dilaudid, Morphine and Tylenol - care per. primary surgical team - follow hgb (7) Aortic stenosis, moderate: Plan: , moderate without aortic regurgitation on ECHO from 06/03/20 - ?mild pulm congestions --> IVFM stopped, continue oral hydration (8) Osteoarthritis of left hip: (9) Chronic obstructive pulmonary disease: Plan: Hx COPD/emphysema - COPD Hx. with no wheezing on exam and no home controller medications - continue with as needed Albuterol - May followup with pulm on outpt. Pt will also require 6mo CT f/u for L hilar adenopathy. (10) Hyperlipidemia: Plan: HLD - continue Atorvastatin (11) Lymphadenopathy, hilar: Plan: - f/u outpt with pulm for emphysema as above, repeat CT scan in ~6months Plan: Code: DNR DNI (discussed with patient and he explained that these are his wishes and he has a living will) Diet: per primary team DVT: per primary team, Lovenox 30mg Q24H + SCDs Admission and Anticipated Discharge Date Admission Date: February 04, 2021 Subjective Seen at bedside this AM. Reports feels well, no pain at rest and abdomen feels less sense/tender than previously. No questions/concerns at bedside. -BM, +flatus, -N/-V. Review of Systems Review of Systems: 10 point review of systems negative except as in HPI Physical Exam Physical Exam: General: A&Ox3. NAD. Cooperative. HEENT: Atraumatic, normocephalic. Visual acuity grossly intact, hearing grossly intact. Pulm: Diminished in the bases, moderate to good air movement, grossly CTAB A&P. -wheezes, -rales, -rhonchi. Symmetrical chest rise. No increased work of breathing. No respiratory distress. Cardiac: RRR, systolic murmur present. Radial pulses intact and symmetrical. 1+ edema bilaterally, PT pulse intact bilaterally Abdominal: Distended, mild tenderness without focal tenderness or rebound, no rigidity/guarding. Extremities: hands and feet warm and dry with sensation intact to soft touch. Results & Data Results & Data ([facility]) Vital Signs (Past 12 Hours) Vital Signs Temp Pulse Pulse Resp BP Pulse Ox 02/07/21 07:01 36.6 C 76 20 95/61 L 90 02/07/21 04:00 36.7 C 73 16 127/71 90 02/07/21 00:00 69 PG Care Time/CCT Total # of Minutes Spent Total Time Spent with Patient: Total time spent is greater than 50% in coordination of care (as documented) at patient's floor/unit and/or counseling patient: Coding Level of Care Code 60323 Subseq Hosp Care Lvl 1 Diagnoses Acute respiratory failure with hypoxia J96.01 Hypertension I10 PAD (peripheral artery disease) I73.9 H/O carotid endarterectomy Z98.890 Colonic mass K63.89 Colon cancer C18.9 Aortic stenosis, moderate I35.0 Osteoarthritis of left hip M16.12 Chronic obstructive pulmonary disease J44.9 Hyperlipidemia E78.5 Lymphadenopathy, hilar R59.0
[2021-02-07] MEDS: METOPROLOL SUCC 25MG EXT REL TAB PO SCH (17:18)
[2021-02-07] MEDS: ATORVASTATIN 40 MG TAB PO SCH (17:18)
[2021-02-07] MEDS: ENOXAPARIN INJ 30 MG/0.3 ML SYR SQ SCH (18:40)
[2021-02-07] MEDS: ASPIRIN 81 MG ECTAB PO SCH (20:18)
[2021-02-08] MEDS: MoRPHine SULFATE 2 MG/ML CARP IV PRN (03:17)
[2021-02-08 06:40] LABS: Basophils # (auto) 0.01 K/uL (0-0.2); Basophils % (auto) 0.2 %; Eosinophils # (auto) 0.21 K/uL (0-0.5); Eosinophils % (auto) 3.3 %; Hematocrit (blood only) 31.4 % (42-52); Hemoglobin 10.3 g/dL (14.0-18.0); Immature Granulocytes # (auto) 0.01 K/uL (0.00-0.02); Immature Granulocytes % (auto) 0.2 %; Lymphocytes # (auto) 1.35 K/uL (1.2-3.4); Lymphocytes % (auto) 21.4 %; Mean Corpuscular Hgb Conc 32.8 g/dL (32-36); Mean Corpuscular Volume 91.5 fL (80-100); Mean Platelet Volume 10.1 fL (7.4-10.4); Monocytes # (auto) 0.74 K/uL (0.11-0.59); Monocytes % (auto) 11.7 %; Neutrophils # (auto) 3.99 K/uL (1.4-6.5); Neutrophils % (auto) 63.2 %; Platelet Count 259 K/uL (130-400); RDW Coefficient of Variation 13.7 % (11.5-14.5); RDW Standard Deviation 45.8 fL (36.4-46.3); Red Blood Count 3.43 M/uL (4.7-6.1); White Blood Count 6.31 K/uL (4.8-10.8)
[2021-02-08 07:06] LABS: BUN Creatinine Ratio 9.9 (10-20); Calcium 8.5 mg/dl (8.5-10.1); Creatinine Clr Calc Pharmacy 77.8 ml/min; Est GFR (African American) 98.8 ml/min; Est GFR (Non-African American) 85.3 ml/min; Potassium 3.6 mmol/L (3.5-5.1)
[2021-02-08] MEDS: PANTOprazole 40 MG TAB PO SCH (07:34)
[2021-02-08] MEDS: POTASSIUM CHLORIDE CRTAB 20 MEQ TABCR PO SCH ×2 (07:34→20:29)
--- NOTE | 2021-02-08 08:43 | Hospitalist Progress Note ---
Date of Service February 08, 2021 Assessment & Plan (1) Acute respiratory failure with hypoxia: Plan: 80 yo M w/ pMHx. of OA, COPD, MCA aneurysm, colon cancer, moderate , H/O carotid endarterectomy and PAD who is hospitalized for colectomy by Dr Massey on 02/04 - Hypoxia in the post operative setting requiring 3L NC with Hx. of COPD with no home O2 requirement - Wean to SpO2 > 90% - Patient is splinting on initial post-op exam ?atelectasis vs. respiratory dep ression from pain medication or a mixed picture -WBC 16-->13 post-op, trend. Resolved/normalized 02/06 and remains afebrile - CXR with emphysema, ?atelectasis, and new small pleural effusions. Pt with hx of mod . - CT prior with no effusions - Continue Flutter, inspiratory spirometry, titrate SpO2 to maintain 90% --> Wean O2 as tolerated 02/08 POD 4 colon mass removal w Dr Massey -- see below. Attempting to get out of bed more with PT. Maintaining urias and BRIAN drain Will also check Mag. K 3.6 but consider adding some oral supplementation to keep closer to 4. Continued to need supplemental O2 -- (recorded 83%on 2L but per RN he was actually 93%) Continue duonebs, IS, flutter valve WBC wnl Afebrile BNP wnl and ECHO on 06/11 with EF 60%, moderate , mild LA dilation. IVF reported as stopped, but have been continued. Messaged PA from surgery about d/c vs decreased rate. Repeat CXR pending -- if still w overload, consider dose of diuretics or decreased rate IVF Has been tolerating clear liquid diet Breathing on room air at morning assessment, 2 L on afternoon assessment. Patient seems to improve with deep breaths and inspiratory spirometry, suspect atelectatic hypoxia with some contribution of pleural effusion likely related to fluid and moderate (2) Aortic stenosis, moderate: Plan: , moderate without aortic regurgitation on ECHO from 06/03/20 - ?mild pulm congestions --> IVFM stopped (reported but is still on), continue oral hydration Could be contributing to continued hypoxia Messaging primary about stopping IVF as he has continued to tolerate clear diet without issue (3) Hypertension: Plan: BP controlled 137/69 Continue metoprolol Monitor (4) PAD (peripheral artery disease): Plan: PAD - restarted ASA by primary service (5) H/O carotid endarterectomy: Plan: - ASA, statin (6) Colonic mass: Plan: POD # 4 open low anterior colon resection with Dr Massey Post-op management per primary Pathology pending (7) Colon cancer: Plan: s/p colectomy - pain control with Dilaudid, Morphine and Tylenol - care per. primary surgical team - follow hgb (8) Osteoarthritis of left hip: Plan: will need output f/u (9) Chronic obstructive pulmonary disease: Plan: Hx COPD/emphysema - COPD Hx. with no wheezing on exam and no home controller medications - continue with as needed Albuterol - May followup with pulm on outpt. Pt will also require 6mo CT f/u for L hilar adenopathy. May need 2 step prior to d/c Messaging primary about IVF and stopping to prevent worsening congestion Continue to monitor oxygen demands (10) Hyperlipidemia: Plan: - continue Atorvastatin (11) Lymphadenopathy, hilar: Plan: - f/u outpt with pulm for emphysema as above, repeat CT scan in ~6months Plan: Code: DNR DNI (discussed with patient and he explained that these are his wishes and he has a living will) Diet: per primary team DVT: per primary team, Lovenox 30mg Q24H + SCDs Admission and Anticipated Discharge Date Admission Date: February 04, 2021 Supervising Physician Co-Signing Physician Notes Attending Attestation - Chart reviewed in detail, care plan d/w GABI Vyas. I agree w/ the miller components of her consultation note. Jerry Cagle MD Subjective Pt eval this morning. Feeling alright. Pain controlled w ordered medications. About the same as yesterday. Endorses some shortness of breath but no cough/sputum production and has been using incentive3 spirometer and flutter valve. Passing lots of gas but still no BM. SpO2 recorded as 83% on 2L -- reported likely 93% but documented incorrectly. Discussed obtaining CXR. No fever/chills but states always cold (has 2 blankets on currently), no chest pain, nausea vomiting. Urias draining yellow urine. Unsure if BRIAN drained this morning -- currently 15-20cc serosanginous drainage. +BS throughout and dressing c/d/i with incisional pain. Questions/concerns addressed at this time. Review of Systems Review of Systems: All systems reviewed & are unremarkable except as noted in HPI & below Physical Exam Physical Exam: General: A&Ox3. NAD. Cooperative. HEENT: Atraumatic, normocephalic. Visual acuity grossly intact, hearing grossly intact. Pulm: Diminished in the bases, moderate to good air movement, grossly CTAB A&P. -wheezes, -rales, -rhonchi. Symmetrical chest rise. No increased work of breathing. No respiratory distress. on 2L NC Cardiac: RRR, systolic murmur present. Radial pulses intact and symmetrical. 1+ edema bilaterally, PT pulse intact bilaterally Abdominal: soft, minimally distended, mild tenderness jacqui-incisional (dressing c/d/i), BRIAN with serosanguineous drainage. No rigidity/guarding. Extremities: hands and feet warm and dry with sensation intact to soft touch. Results & Data Results & Data ([facility]) Vital Signs (Past 12 Hours) Vital Signs Temp Pulse Resp BP BP Pulse Ox 02/08/21 08:34 69 137/69 83 L 02/08/21 07:07 36.7 C 61 16 99/45 L 94 02/08/21 03:21 36.8 C 68 20 127/73 93 02/07/21 23:44 24 92 02/07/21 22:34 36.5 C 66 16 146/71 H 93 Laboratory Results 02/08/21 02/08/21 Range/Units 05:53 05:53 WBC 6.31 (4.8-10.8) K/uL RBC 3.43 L (4.7-6.1) M/uL Hgb 10.3 L (14.0-18.0) g/dL Hct 31.4 L (42-52) % MCV 91.5 (80-100) fL MCH 30.0 (25-34) pg MCHC 32.8 (32-36) g/dL RDW Std Deviation 45.8 (36.4-46.3) fL RDW Coeff of Kelsey 13.7 (11.5-14.5) % Plt Count 259 (130-400) K/uL MPV 10.1 (7.4-10.4) fL Immature Gran % (Auto) 0.2 % Neut % (Auto) 63.2 % Lymph % (Auto) 21.4 % [place] % (Auto) 11.7 % Eos % (Auto) 3.3 % Baso % (Auto) 0.2 % Neut # (Auto) 3.99 (1.4-6.5) K/uL Lymph # (Auto) 1.35 (1.2-3.4) K/uL [place] # (Auto) 0.74 H (0.11-0.59) K/uL Eos # (Auto) 0.21 (0-0.5) K/uL Baso # (Auto) 0.01 (0-0.2) K/uL Immature Gran # (Auto) 0.01 (0.00-0.02) K/uL Sodium 141 (136-145) mmol/L Potassium 3.6 (3.5-5.1) mmol/L Chloride 108 H (98-107) mmol/L Carbon Dioxide 26 (21-32) mmol/L Anion Gap 7.0 (3-11) BUN 8 (7-18) mg/dl Creatinine 0.78 (0.6-1.4) mg/dl Est Cr Clr Drug Dosing 77.8 ml/min Est GFR ( Amer) 98.8 ml/min Est GFR (Non-Af Amer) 85.3 ml/min BUN/Creatinine Ratio 9.9 L (10-20) Glucose 100 H (70-99) mg/dl Calcium 8.5 (8.5-10.1) mg/dl PG Care Time/CCT Total # of Minutes Spent Total Time Spent with Patient: Total time spent is greater than 50% in coordination of care (as documented) at patient's floor/unit and/or counseling patient: Coding Level of Care Code 82705 Subseq Hosp Care Lvl 3 Diagnoses Acute respiratory failure with hypoxia J96.01 Hypertension I10 PAD (peripheral artery disease) I73.9 H/O carotid endarterectomy Z98.890 Colonic mass K63.89 Colon cancer C18.9 Aortic stenosis, moderate I35.0 Osteoarthritis of left hip M16.12 Chronic obstructive pulmonary disease J44.9 Hyperlipidemia E78.5 Lymphadenopathy, hilar R59.0
[2021-02-08] MEDS: LACTATED RINGER'S 1,000 ML IV SCH (08:48)
--- NOTE | 2021-02-08 08:59 | Surgery Progress Note ---
Date of Service February 08, 2021 Assessment & Plan (1) History of colon resection: Plan: Postop day #4 Tolerating clear liquids without difficulty Awaiting full return of bowel function Pathology pending Keep Mcgee catheter and BRIAN drain. We will add Flomax if he is not already on it Discussed with nursing. Physical therapy consulted but will try to get him out of bed more today and ambulate more. Admission and Anticipated Discharge Date Admission Date: February 04, 2021 Subjective pt seen. no acute distress. pain with coughing/movement but overall no major c/o's. no bowel fx yet. Physical Exam Physical Exam: alert. oriented. nad. abd: soft. BRIAN with serous output. incision looks great. no drainage or sign of infection. Results & Data ([facility]) Vital Signs (Past 12 Hours) Vital Signs Temp Pulse Resp BP BP Pulse Ox 02/08/21 08:34 69 137/69 83 L 02/08/21 07:07 36.7 C 61 16 99/45 L 94 02/08/21 03:21 36.8 C 68 20 127/73 93 02/07/21 23:44 24 92 02/07/21 22:34 36.5 C 66 16 146/71 H 93 PG Care Time/CCT Total # of Minutes Spent Total Time Spent with Patient: Total time spent is greater than 50% in coordination of care (as documented) at patient's floor/unit and/or counseling patient: Coding Level of Care Code None Diagnoses History of colon resection Z90.49
[2021-02-08] MEDS: TAMSULOSIN HCL 0.4 MG CAP PO SCH (09:26)
--- NOTE | 2021-02-08 11:29 | XRay Report ---
XR chest 1V portable HISTORY: 80 years-old Male continued hypoxia acute hypoxia COMPARISON: Chest radiograph 02/04/2021, chest CT 02/01/2021. TECHNIQUE: Portable AP view of the chest FINDINGS: Cardiomediastinal and hilar silhouettes are unchanged. Small pleural effusions with persistent bibasi lar opacities, mildly progressed on the right. No pneumothorax. Emphysema. IMPRESSION: 1. Small pleural effusions with persistent bibasilar opacities, mildly progressed on the right sugges tive of probable atelectasis. Pneumonitis considered less likely. 2. Emphysema. ACT 112: Negative or not required by law. The above report was generated using voice recognition software. It may contain grammatical, syntax o r spelling errors. Electronically signed by: Darin Gaytan M.D. 02/08/2021 11:28 AM
[2021-02-08] MEDS: ATORVASTATIN 40 MG TAB PO SCH (16:34)
[2021-02-08] MEDS: METOPROLOL SUCC 25MG EXT REL TAB PO SCH (16:34)
[2021-02-08] MEDS: ENOXAPARIN INJ 30 MG/0.3 ML SYR SQ SCH (20:26)
[2021-02-08] MEDS: ASPIRIN 81 MG ECTAB PO SCH (20:28)
[2021-02-09 06:27] LABS: Hematocrit (blood only) 29.4 % (42-52); Hemoglobin 9.7 g/dL (14.0-18.0); Mean Corpuscular Hemoglobin 29.8 pg (25-34); Mean Corpuscular Volume 90.5 fL (80-100); Mean Platelet Volume 9.9 fL (7.4-10.4); Platelet Count 279 K/uL (130-400); RDW Coefficient of Variation 13.7 % (11.5-14.5); RDW Standard Deviation 45.4 fL (36.4-46.3); Red Blood Count 3.25 M/uL (4.7-6.1); White Blood Count 7.12 K/uL (4.8-10.8)
[2021-02-09 07:03] LABS: BUN Creatinine Ratio 9.2 (10-20); Calcium 8.2 mg/dl (8.5-10.1); Creatinine Clr Calc Pharmacy 79.9 ml/min; Est GFR (African American) 99.9 ml/min; Est GFR (Non-African American) 86.2 ml/min; Magnesium 1.9 mg/dl (1.8-2.4); Potassium 3.3 mmol/L (3.5-5.1)
[2021-02-09] MEDS ORDERED: POTASSIUM CHLORIDE CRTAB 20 MEQ TABCR PO STA (07:59)
--- NOTE | 2021-02-09 08:06 | Hospitalist Progress Note ---
Date of Service February 09, 2021 Assessment & Plan (1) Acute respiratory failure with hypoxia: Plan: 80 yo M w/ pMHx. of OA, COPD, MCA aneurysm, colon cancer, moderate , H/O carotid endarterectomy and PAD who is hospitalized for colectomy by Dr Massey on 02/04 Hypoxia in postoperative setting requiring 3 L nasal cannula with a history of COPD and no home oxygen requirement Postop day 5 colon mass removal with Dr. Massey White blood count 16 and normalized on 02/06 and patient has remained afebrile Chest x-ray did show emphysema and questionable atelectasis with new small pleural effusions and patient with moderate aortic stenosis BNP within normal limits and echo from May of this year with an EF of 60%, moderate aortic stenosis and mild left atrial dilation CT of the chest previously without any effusions however did note some abnormal findings that will need follow-up CAT scan imaging in 6 months for surveillance and possible pulmonary follow-up which has been notified to general surgery team and they will arrange for follow-up at discharge IV fluids had been previously documented is discontinued but were continued through evening of 02/08 but after discussion with primary service and patient able to keep up with oral intake this was discontinued and patient has remained stable on room air since that time given repeat chest x-ray prior to discontinuation with progressive atelectasis White blood count remains normal limits and patient remains afebrile Had been up walking with therapy this afternoon and encouraged more frequent ambulation Continue pulmonary toilet with flutter valve and incentive spirometry Supplemental oxygenation as needed, DuoNebs as needed Given his reported shortness of breath and concerns for malignancy did also check iron studies which showed iron low at 18 and ordered dose of Venofer IV for today and will repeat tomorrow and would ideally complete 3 days if remains inpatient Continue to monitor (2) Colonic mass: Plan: POD # 5 open low anterior colon resection with Dr Massey Post-op management per primary Pathology pending mag 1.9 -- will give 1 gm to get closer to 2 which should also help w bowels Hemoglobin 9.7 and giving iron as above Pain management, bowel regimen, PT/OT, DVT prophylaxis with Lovenox per primary service Plans for rehab discharge Continue to monitor labs (3) Aortic stenosis, moderate: Plan: , moderate without aortic regurgitation on ECHO from 06/03/20 IV fluids had been continued through 02/08 but have since been discontinued and patient remains on room air Suspect volume overload contributing to hypoxia as above (4) Hypertension: Plan: BP controlled Continue metoprolol Monitor (5) PAD (peripheral artery disease): Plan: restarted ASA by primary service (6) H/O carotid endarterectomy: Plan: Continue ASA, statin (7) Colon cancer: Plan: s/p colectomy - pain control with Dilaudid, Morphine and Tylenol - care per. primary surgical team - follow hgb Anemic with iron studies showing deficiency and getting benefit as above (8) Osteoarthritis of left hip: Plan: will need output f/u (9) Chronic obstructive pulmonary disease: Plan: Hx COPD/emphysema - COPD Hx. with no wheezing on exam and no home controller medications - continue with as needed Albuterol - May followup with pulm on outpt. Pt will also require 6mo CT f/u for L hilar adenopathy. May need 2 step prior to d/c Messaging primary about IVF and stopping to prevent worsening congestion as above and this has been discontinued and no longer requiring supplemental oxygen (10) Hyperlipidemia: Plan: continue Atorvastatin (11) Lymphadenopathy, hilar: Plan: - f/u outpt with pulm for emphysema as above, repeat CT scan in ~6months (12) History of colon resection: Plan: Postop day 5 as above (13) Anemia: Plan: Normocytic B12 within normal limits Hemoglobin 9.7iron low at 18 above and ordered Venofer and will repeat tomorrow and complete 3 days if remains inpatient (14) Iron deficiency: Plan: Low at 18supplementation above (15) Hypokalemia: Plan: Potassium low at 3.3 Mag 1.9 Already on potassium supplementation 20 mEq p.o. twice daily and ordered extra 40 mEq this morning. Monitor on a.m. labs and increase supplementation as needed (16) Urinary retention: Plan: Mcgee placed on 02/07 evening for urinary retentionhas some blood-tinged urine in bag but no clotting Started on Flomax 0.4 mg daily on 02/08 by general surgery Per surgery maintaining Cmgee at this time but will need to monitor for retention once discontinued Plan: Code: DNR DNI (discussed with patient and he explained that these are his wishes and he has a living will) Diet: per primary team DVT: per primary team, Lovenox 30mg Q24H + SCDs Admission and Anticipated Discharge Date Admission Date: February 04, 2021 Supervising Physician Co-Signing Physician Notes Attending Attestation - Chart reviewed in detail, care plan d/w GABI Vyas. I agree w/ the miller components of her consultation note. Jerry Cagle MD Subjective Patient this morning. States that his pain is slightly improved compared to days past. He is passing lots of gas but still without a bowel movement. Seen by general surgery this morning and diet was advanced to full liquids. Discussed magnesium 1.9 will give 1 g to help stimulate bowels and get closer to 2. He states that his breathing is improved and he denies any shortness of breath the current moment and is been stable on room air. IV fluids were discontinued yesterday and he has been tolerating diet without increased discomfort or issue. Discussed low iron and will give IV Venofer while inpatient daily for up to 3 days depending on how long he remains inpatient as we would want to avoid any further constipation with oral supplementation.. Mcgee has been maintained which has slight pink tinge to it but no obvious clotting. He denies any fevers, chills (outside of his usually being cold which is chronic), chest pain, shortness of breath, nausea, vomiting at this time. Review of Systems Review of Systems: All systems reviewed & are unremarkable except as noted in HPI & below Physical Exam Physical Exam: General: A&Ox3. NAD. Cooperative. HEENT: Atraumatic, normocephalic. Visual acuity grossly intact, hearing grossly intact. Pulm: Diminished in the bases, moderate to good air movement, no wheezes, rales, rhonchi. No increased work of breathing or accessory muscle use. 93% on room air Cardiac: RRR, systolic murmur. Radial pulses intact and symmetrical. Trace edema bilaterally, PT pulse intact bilaterally Abdominal: soft, minimally distended, mild tenderness jacqui-incisional (dressing c/d/i), BRIAN with serosanguineous drainage, decreased. No rigidity/guarding. Extremities: hands and feet warm and dry with sensation intact to soft touch. Results & Data Results & Data ([facility]) Vital Signs (Past 12 Hours) Vital Signs Temp Pulse Resp BP BP Pulse Ox 02/09/21 06:59 36.6 C 73 16 154/69 H 93 02/08/21 22:16 36.6 C 71 18 113/69 91 Laboratory Results 02/09/21 02/09/21 02/09/21 Range/Units 06:08 06:08 06:08 WBC 7.12 (4.8-10.8) K/uL RBC 3.25 L (4.7-6.1) M/uL Hgb 9.7 L (14.0-18.0) g/dL Hct 29.4 L (42-52) % MCV 90.5 (80-100) fL MCH 29.8 (25-34) pg MCHC 33.0 (32-36) g/dL RDW Std Deviation 45.4 (36.4-46.3) fL RDW Coeff of Kelsey 13.7 (11.5-14.5) % Plt Count 279 (130-400) K/uL MPV 9.9 (7.4-10.4) fL Sodium 137 (136-145) mmol/L Potassium 3.3 L (3.5-5.1) mmol/L Chloride 107 (98-107) mmol/L Carbon Dioxide 24 (21-32) mmol/L Anion Gap 6.0 (3-11) BUN 7 (7-18) mg/dl Creatinine 0.76 (0.6-1.4) mg/dl Est Cr Clr Drug Dosing 79.9 ml/min Est GFR ( Amer) 99.9 ml/min Est GFR (Non-Af Amer) 86.2 ml/min BUN/Creatinine Ratio 9.2 L (10-20) Glucose 108 H (70-99) mg/dl Calcium 8.2 L (8.5-10.1) mg/dl Magnesium 1.9 (1.8-2.4) mg/dl Iron 18 L (35-175) mcg/dl Vitamin B12 563 (193-986) pg/ml 02/08/21 Range/Units 05:53 WBC (4.8-10.8) K/uL RBC (4.7-6.1) M/uL Hgb (14.0-18.0) g/dL Hct (42-52) % MCV (80-100) fL MCH (25-34) pg MCHC (32-36) g/dL RDW Std Deviation (36.4-46.3) fL RDW Coeff of Kelsey (11.5-14.5) % Plt Count (130-400) K/uL MPV (7.4-10.4) fL Sodium (136-145) mmol/L Potassium (3.5-5.1) mmol/L Chloride (98-107) mmol/L Carbon Dioxide (21-32) mmol/L Anion Gap (3-11) BUN (7-18) mg/dl Creatinine (0.6-1.4) mg/dl Est Cr Clr Drug Dosing ml/min Est GFR ( Amer) ml/min Est GFR (Non-Af Amer) ml/min BUN/Creatinine Ratio (10-20) Glucose (70-99) mg/dl Calcium (8.5-10.1) mg/dl Magnesium 1.9 (1.8-2.4) mg/dl Iron (35-175) mcg/dl Vitamin B12 (193-986) pg/ml PG Care Time/CCT Total # of Minutes Spent Total Time Spent with Patient: Total time spent is greater than 50% in co ordination of care (as documented) at patient's floor/unit and/or counseling patient: Coding Level of Care Code 28685 Subseq Hosp Care Lvl 3 Diagnoses Acute respiratory failure with hypoxia J96.01 Aortic stenosis, moderate I35.0 Hypertension I10 PAD (peripheral artery disease) I73.9 H/O carotid endarterectomy Z98.890 Colonic mass K63.89 Colon cancer C18.9 Osteoarthritis of left hip M16.12 Chronic obstructive pulmonary disease J44.9 Hyperlipidemia E78.5 Lymphadenopathy, hilar R59.0 History of colon resection Z90.49 Anemia D64.9 Iron deficiency E61.1 Hypokalemia E87.6 Urinary retention R33.9
[2021-02-09] MEDS ORDERED: MAGNESIUM SULFATE / D5W 1 GM/100 ML BAG IV ONE (08:30)
[2021-02-09] MEDS: PANTOprazole 40 MG TAB PO SCH (08:35)
[2021-02-09] MEDS: POTASSIUM CHLORIDE CRTAB 20 MEQ TABCR PO SCH ×2 (08:35→20:40)
[2021-02-09] MEDS: TAMSULOSIN HCL 0.4 MG CAP PO SCH (08:35)
--- NOTE | 2021-02-09 08:43 | Surgery Progress Note ---
Date of Service February 09, 2021 Assessment & Plan (1) History of colon resection: Plan: Postop day #[address] Massey advance to full liquids Keep Mcgee catheter one more day progressing as expected Admission and Anticipated Discharge Date Admission Date: February 04, 2021 Subjective some flatus, no BM, amb halls with PT, no nausea Physical Exam Gastrointestinal (Abdomen): Inspection/Auscultation: + abdominal surgical inci paty and + abdominal surgical drain present (5 cc, 10 cc past 2 shifts) Results & Data ([facility]) Vital Signs (Past 12 Hours) Vital Signs Temp Pulse Resp BP BP Pulse Ox 02/09/21 06:59 36.6 C 73 16 154/69 H 93 02/08/21 22:16 36.6 C 71 18 113/69 91 PG Care Time/CCT Total # of Minutes Spent Total Time Spent with Patient: Total time spent is greater than 50% in coordination of care (as documented) at patient's floor/unit and/or counseling patient: Coding Level of Care Code None Diagnoses History of colon resection Z90.49
[2021-02-09 09:05] LABS: Ferritin 56.5 ng/ml (8-388)
[2021-02-09] MEDS ORDERED: IRON SUCROSE 300 MG in SODIUM CHLORIDE 0.9% 250 ML IV ONE (11:00)
[2021-02-09] MEDS: HYDROCODONE/ACETAMOPHEN 5/325MG TAB PO PRN (15:37)
[2021-02-09] MEDS: ATORVASTATIN 40 MG TAB PO SCH (16:44)
[2021-02-09] MEDS: METOPROLOL SUCC 25MG EXT REL TAB PO SCH (16:44)
[2021-02-09] MEDS: ENOXAPARIN INJ 30 MG/0.3 ML SYR SQ SCH (18:27)
[2021-02-09] MEDS: ASPIRIN 81 MG ECTAB PO SCH (20:40)
[2021-02-10] MEDS: PANTOprazole 40 MG TAB PO SCH (08:09)
[2021-02-10] MEDS: TAMSULOSIN HCL 0.4 MG CAP PO SCH (08:09)
[2021-02-10] MEDS: POTASSIUM CHLORIDE CRTAB 20 MEQ TABCR PO SCH ×2 (08:11→20:00)
--- NOTE | 2021-02-10 08:42 | Hospitalist Progress Note ---
Date of Service February 10, 2021 Assessment & Plan (1) Acute respiratory failure with hypoxia: Plan: 80 yo M w/ pMHx. of OA, COPD, MCA aneurysm, colon cancer, moderate , H/O carotid endarterectomy and PAD who is hospitalized for colectomy by Dr Massey on 02/04 Hypoxia in postoperative setting requiring 3 L nasal cannula with a history of COPD and no home oxygen requirement Postop day 5 colon mass removal with Dr. Massey White blood count 16 and normalized on 02/06 and patient has remained afebrile Chest x-ray did show emphysema and questionable atelectasis with new small pleural effusions and patient with moderate aortic stenosis BNP within normal limits and echo from May of this year with an EF of 60%, moderate aortic stenosis and mild left atrial dilation CT of the chest previously without any effusions however did note some abnormal findings that will need follow-up CAT scan imaging in 6 months for surveillance and possible pulmonary follow-up which has been notified to general surgery team and they will arrange for follow-up at discharge IV fluids had been previously documented is discontinued but were continued through evening of 02/08 but after discussion with primary service and patient able to keep up with oral intake this was discontinued and patient has remained stable on room air since that time given repeat chest x-ray prior to discontinuation with progressive atelectasis White blood count remains normal limits and patient remains afebrile Had been up walking with therapy this afternoon and encouraged more frequent ambulation Continue pulmonary toilet with flutter valve and incentive spirometry Supplemental oxygenation as needed, DuoNebs as needed 02/10 Patient continues to use incentive spirometer, flutter valve. Has not needed nebulizers and has been stable and currently 97% on room air. Denies shortness of breath. Did get a dose of Venofer yesterday 300 mg and repeated for today and will give an additional 200 mg tomorrow to improve stores for Iron low 18 No further IV fluids as patient was likely slightly volume overloaded previously. We will hold off on any Lasix at this time however could consider 20 mg IV if needed Continue to monitor (2) Colonic mass: Plan: POD # 6 open low anterior colon resection with Dr Massey Post-op management per primary Pathology without evidence for malignancy Anemia and iron stores were checked which showed an iron of 18 and is getting his second dose of Venofer today we will repeat for third dose tomorrow. Hemoglobin stable at 10.1 from previous 9.7 Continue to monitor labs Pain management, bowel regimen, PT/OT, DVT prophylaxis with Lovenox per primary service Highly encourage ambulation to help with return of bowel function Has been passing gas but no bowel movement and is been placed on a full liquid diet primary service Plans for rehab discharge Continue to monitor labs (3) Aortic stenosis, moderate: Plan: , moderate without aortic regurgitation on ECHO from 06/03/20 IV fluids had been continued through 02/08 but have since been discontinued and patient remains on room air Suspect volume overload contributing to hypoxia as above which is since resolved currently 96% on room air (4) Hypertension: Plan: BP controlled Continue metoprolol Of note was started on Flomax for urinary retention by primary service and patient has been on the lower side Continue to monitor hold with prolonged needed Monitor (5) PAD (peripheral artery disease): Plan: restarted ASA by primary service (6) H/O carotid endarterectomy: Plan: Continue ASA, statin (7) Colon cancer: Plan: s/p colectomy - pain control with Dilaudid, Morphine and Tylenol - care per. primary surgical team Anemic with iron studies showing deficiency and getting Venofer as above (8) Osteoarthritis of left hip: Plan: will need output f/u (9) Chronic obstructive pulmonary disease: Plan: Hx COPD/emphysema - COPD Hx. with no wheezing on exam and no home controller medications - continue with as needed Albuterol - May followup with pulm on outpt. Pt will also require 6mo CT f/u for L hilar adenopathy. (10) Hyperlipidemia: Plan: continue Atorvastatin (11) Lymphadenopathy, hilar: Plan: - f/u outpt with pulm for emphysema as above, repeat CT scan in ~6months (12) History of colon resection: Plan: Postop day 6 as above (13) Anemia: Plan: Normocytic B12 within normal limits Hemoglobin 9.7iron low at 18 above and ordered Venofer and will repeat tomorrow and complete 3 days if remains inpatient hgb improved to 10.1 on am labs 3rd dose venofer tomorrow CBC in AM (14) Iron deficiency: Plan: Low at 18supplementation above (15) Hypokalemia: Plan: Resolved Continue supplementation while on liquid diet for now K 3.9 (16) Urinary retention: Plan: Mcgee placed on 02/07 evening for urinary retentionhas some blood-tinged urine in bag but no clotting Started on Flomax 0.4 mg daily on 02/08 by general surgery Per surgery maintaining Mcgee at this time but will need to monitor for retention once discontinued--> d/c'd AM 02/10 and will need to monitor for retention (removed 1 hr prior to eval and nothing at that time) Plan: Code: DNR DNI (discussed with patient and he explained that these are his wishes and he has a living will) Diet: per primary team DVT: per primary team, Lovenox 30mg Q24H + SCDs Admission and Anticipated Discharge Date Admission Date: February 04, 2021 Supervising Physician Co-Signing Physician Notes Attending Attestation - Chart reviewed in detail, care plan d/w GABI Vyas. I agree w/ the miller components of her consultation note. Jerry Cagle MD Subjective Patient evaluated this morning. Passing gas but no BM. Some more abd discomfort today report but currently getting IV venofer as well. Has not been up with therapy yet today but is up in chair. Just got norco x 2 and would like something additional. Will alert surgery as well given increased discomfort.--> Was sleeping upon reentry to room for RN to assess, resting comfortable and no need for anything further at this time. Not much appetite. No fevers, chest pain, shortness of breath, vomiting. Mcgee d/c this morning and has not urinated since. Would like to avoid catheter but will need to monitor for retention. Review of Systems Review of Systems: All systems reviewed & are unremarkable except as noted in HPI & below Physical Exam Physical Exam: General: A&Ox3. NAD. Cooperative. Multiple blankets. IV Venofer currently infusing HEENT: Atraumatic, normocephalic. Visual acuity grossly intact, hearing grossly intact. Pulm: Diminished in the bases, moderate to good air movement, no wheezes, rales, rhonchi. No increased work of breathing or accessory muscle use. 97% on room air Cardiac: RRR, systolic murmur. Radial pulses intact and symmetrical. Trace edema bilaterally, PT pulse intact bilaterally Abdominal: soft, + distended, moderate tenderness jacqui-incisional (dressing c/d/i), BRIAN with serosanguineous drainage, decreased. Voluntary guarding left lower quadrant Extremities: hands and feet warm and dry with sensation intact to soft touch. Results & Data Results & Data ([facility]) Vital Signs (Past 12 Hours) Vital Signs Temp Pulse Resp BP Pulse Ox 02/10/21 07:11 36.8 C 63 18 110/66 94 02/09/21 23:10 37.1 C 71 18 91/53 L 92 Laboratory Results 02/10/21 02/10/21 Range/Units 08:50 08:50 WBC 9.81 (4.8-10.8) K/uL RBC 3.36 L (4.7-6.1) M/uL Hgb 10.1 L (14.0-18.0) g/dL Hct 30.8 L (42-52) % MCV 91.7 (80-100) fL MCH 30.1 (25-34) pg MCHC 32.8 (32-36) g/dL RDW Std Deviation 46.7 H (36.4-46.3) fL RDW Coeff of Kelsey 14.0 (11.5-14.5) % Plt Count 321 (130-400) K/uL MPV 9.9 (7.4-10.4) fL Sodium 136 (136-145) mmol/L Potassium 3.9 D (3.5-5.1) mmol/L Chloride 106 (98-107) mmol/L Carbon Dioxide 24 (21-32) mmol/L Anion Gap 6.0 (3-11) BUN 9 (7-18) mg/dl Creatinine 0.85 (0.6-1.4) mg/dl Est Cr Clr Drug Dosing 71.4 ml/min Est GFR ( Amer) 95.4 ml/min Est GFR (Non-Af Amer) 82.3 ml/min BUN/Creatinine Ratio 10.6 (10-20) Glucose 102 H (70-99) mg/dl Calcium 8.7 (8.5-10.1) mg/dl Magnesium 2.2 (1.8-2.4) mg/dl Total Bilirubin 0.8 (0.2-1) mg/dl AST 23 (15-37) U/L ALT 26 (12-78) U/L Alkaline Phosphatase 72 (45-117) U/L Total Protein 6.2 L (6.4-8.2) gm/dl Albumin 2.5 L (3.4-5.0) gm/dl Globulin 3.7 (2.5-4.0) gm/dl Albumin/Globulin Ratio 0.7 L (0.9-2) PG Care Time/CCT Total # of Minutes Spent Total Time Spent with Patient: Total time spent is greater than 50% in coordination of care (as documented) at patient's floor/unit and/or counseling patient: Coding Level of Care Code 44860 Subseq Hosp Care Lvl 3 Diagnoses Acute respiratory failure with hypoxia J96.01 Colonic mass K63.89 Aortic stenosis, moderate I35.0 Hypertension I10 PAD (peripheral artery disease) I73.9 H/O carotid endarterectomy Z98.890 Colon cancer C18.9 Osteoarthritis of left hip M16.12 Chronic obstructive pulmonary disease J44.9 Hyperlipidemia E78.5 Lymphadenopathy, hilar R59.0 History of colon resection Z90.49 Anemia D64.9 Iron deficiency E61.1 Hypokalemia E87.6 Urinary retention R33.9
--- NOTE | 2021-02-10 08:57 | Surgery Progress Note ---
Date of Service February 10, 2021 Assessment & Plan (1) Colonic mass: (2) Urinary retention: Plan: pod 6 still awaiting bm discussed hiis path report stay on full liquids for now. will try and d/c lees. continue flomas Admission and Anticipated Discharge Date Admission Date: February 04, 2021 Subjective pt seen. feeling ok. still no bm. joseph full liquids without difficulty. not much appetitie. Physical Exam Physical Exam: alert. nad sitting in chair. BRIAN serous. incision c/d/i Results & Data ([facility]) Vital Signs (Past 12 Hours) Vital Signs Temp Pulse Resp BP Pulse Ox 02/10/21 07:11 36.8 C 63 18 110/66 94 02/09/21 23:10 37.1 C 71 18 91/53 L 92 PG Care Time/CCT Total # of Minutes Spent Total Time Spent with Patient: Total time spent is greater than 50% in coordination of care (as documented) at patient's floor/unit and/or counseling patient: Coding Level of Care Code None Diagnoses Colonic mass K63.89 Urinary retention R33.9
[2021-02-10 09:25] LABS: Hematocrit (blood only) 30.8 % (42-52); Hemoglobin 10.1 g/dL (14.0-18.0); Mean Corpuscular Hemoglobin 30.1 pg (25-34); Mean Corpuscular Hgb Conc 32.8 g/dL (32-36); Mean Corpuscular Volume 91.7 fL (80-100); Mean Platelet Volume 9.9 fL (7.4-10.4); Platelet Count 321 K/uL (130-400); RDW Standard Deviation 46.7 fL (36.4-46.3); Red Blood Count 3.36 M/uL (4.7-6.1); White Blood Count 9.81 K/uL (4.8-10.8)
[2021-02-10 09:54] LABS: Albumin Globulin Ratio 0.7 (0.9-2); Albumin Level 2.5 gm/dl (3.4-5.0); BUN Creatinine Ratio 10.6 (10-20); Bilirubin,Total 0.8 mg/dl (0.2-1); Calcium 8.7 mg/dl (8.5-10.1); Creatinine Clr Calc Pharmacy 71.4 ml/min; Est GFR (African American) 95.4 ml/min; Est GFR (Non-African American) 82.3 ml/min; Globulin 3.7 gm/dl (2.5-4.0); Magnesium 2.2 mg/dl (1.8-2.4); Potassium 3.9 mmol/L (3.5-5.1); Total Protein 6.2 gm/dl (6.4-8.2)
[2021-02-10] MEDS ORDERED: IRON SUCROSE 300 MG in SODIUM CHLORIDE 0.9% 250 ML IV ONE (10:00)
[2021-02-10] MEDS: HYDROCODONE/ACETAMOPHEN 5/325MG TAB PO PRN ×2 (10:32→21:53)
[2021-02-10] MEDS ORDERED: ACETAMINOPHEN 325 MG TAB PO ONE (11:18)
[2021-02-10] MEDS: METOPROLOL SUCC 25MG EXT REL TAB PO SCH (16:38)
[2021-02-10] MEDS: ATORVASTATIN 40 MG TAB PO SCH (16:38)
[2021-02-10] MEDS: ENOXAPARIN INJ 30 MG/0.3 ML SYR SQ SCH (18:01)
[2021-02-10] MEDS: MoRPHine SULFATE 2 MG/ML CARP IV PRN (18:04)
[2021-02-10] MEDS: ASPIRIN 81 MG ECTAB PO SCH (20:00)
[2021-02-11] MEDS ORDERED: OPTIRAY 320 100ml IV ONE (00:11)
--- NOTE | 2021-02-11 00:31 | Communication Note ---
Date of Service: February 11, 2021 Subjective: Nursing notified me that the patient was having increased pain and drainage from his surgical scar from colectomy on the . Objective: BP soft 101/65 currently, HR 84, Abdomen: soft, increase A/P:
--- NOTE | 2021-02-11 00:51 | Communication Note ---
Date of Service: February 11, 2021 I was called by the certified medical records coder that he was notified by nursing that this patient had increased abdominal pain. He ordered a CT scan of the abdomen and pelvis.This study showed a 4.7 cm gas and fluid collection posterior to the anastomosis concerning for an abscess. Patient was also felt to have incisional hernia along the mid anterior pelvic wall with diastases of the rectus abdominal muscles. There is a hernia containing fat and a loop of small bowel extending near the skin surface. No pneumoperitoneum or free fluid was noted. Air fluid levels were noted throughout the colon consistent with an ileus. I visited with the patient at the bedside at approximately 12:45 am and he was sleeping comfortably in bed at the time of my arrival. He says that his abdominal pain that he previously noted had improved somewhat. He denied any nausea or vomiting. He denied any shakes or chills. He denies any shortness of breath but notes when he does take deep breaths it worsens his abdominal pain. He says since his surgery he is only passing flatus and has not had a bowel movement. Thus far his diet had only been advanced to liquids. On exam patient's abdomen is mildly distended however soft. Bowel sounds are hypoactive. Patient did have pain with palpation to the right and left of his midline incision. Patient's incision was intact with [place] but there appears to be some separation of the skin edges. I was unable to effectively palpate near his incision to assess for fascial defects due to pain. The BRIAN drain is in place with serosanguineous fluid. Patient's most recent blood pressure was noted to be 101/65. Patient is noted to have a low-grade temperature of 37.7. His pulse has been in the 70s or 80s. Pulse ox was noted to be 91% on 3 L of oxygen. I did discuss with the nurse and she noted that prior to calling the certified medical records coder the patient was noted to be hypotensive with a blood pressure of 87/55. She also noted that his pulse ox dropped into the 80s but improved to the 90s with administration of supplemental oxygen via nasal cannula at 3 L. She verified that the patient has not had any nausea or vomiting. She did note however that the patient's dressing was saturated with serosanguineous fluid and was changed prior to my arrival. Due to the above the following interventions were undertaken: check labs. CBC revealed patient's white blood cell count has a slight elevation at 10.8. Hemoglobin is noted to be 9.5 which is stable from values over the last 24 to 48 hours. Chemistry profile showed a sodium of 135. Patient's potassium, BUN, and creatinine were all noted to be within the normal range. Obtain chest x-ray. The study was completed and shows bilateral basilar basila r atelectasis. No discrete infiltrates were noted. We will back the patient's diet down to n.p.o. We will provide hydration with IV fluids. Lactated Ringer's at 75 cc/h has been ordered We will initiate antibiotics in the form of Zosyn due to concern for abdominal abscess. I personally notified pharmacy requesting that this medication be initiated immediately. Discussed the above with my attending physician Dr. Rondon. He has reviewed the CAT scan independently. In addition to the concern for intra-abdominal abscess he notes in the setting of dressing saturation with CT scan findings of incisional hernia/diastases rectus wound dehiscence would be a concern. Due to this concern will make the patient's activity bedrest for the present time. I have called the clinical coordinator and tentatively booked the patient for exploratory laparotomy with abdominal washout on 02/11/[address] Massey's evaluation. The coordinator has informed me that as the patient's most recent Covid test was on 02/04/2021 we will need to repeat this test. This has been ordered and nursing has been notified of this order. I revisited the patient at the bedside and he was again noted to be resting comfortably in bed with some abdominal pain most pronounced near his surgical incision. I explained to him my concerns as outlined above he expresses understanding. Case discussed overnight with GABI Holder. Labs and imaging reviewed, agree with above. 80-year-old male POD #7 low anterior resection by Dr. Massey, had abdominal pain and saturated dressing overnight. CT showed possible 4 cm abscess near her anastomosis as well as a fascial dehiscence with the skin intact. Patient was stable but was made n.p.o. and placed on antibiotics. He was tentatively scheduled for the operating room for Dr. Massey.
[2021-02-11] MEDS ORDERED: PIPERACILL/TAZOBAC CONSULT ACTIVE PRN (01:06)
[2021-02-11] MEDS ORDERED: PIPERACILLIN/TAZOBACTAM 3.375 GM in DEXTROSE 5% 100 ML IV ONE (01:15)
[2021-02-11 01:18] LABS: Basophils # (auto) 0.02 K/uL (0-0.2); Basophils % (auto) 0.2 %; Eosinophils # (auto) 0.13 K/uL (0-0.5); Eosinophils % (auto) 1.2 %; Hematocrit (blood only) 29.3 % (42-52); Hemoglobin 9.5 g/dL (14.0-18.0); Immature Granulocytes # (auto) 0.06 K/uL (0.00-0.02); Immature Granulocytes % (auto) 0.6 %; Lymphocytes # (auto) 1.56 K/uL (1.2-3.4); Lymphocytes % (auto) 14.4 %; Mean Corpuscular Hemoglobin 29.7 pg (25-34); Mean Corpuscular Hgb Conc 32.4 g/dL (32-36); Mean Corpuscular Volume 91.6 fL (80-100); Mean Platelet Volume 9.7 fL (7.4-10.4); Monocytes # (auto) 1.41 K/uL (0.11-0.59); Neutrophils # (auto) 7.65 K/uL (1.4-6.5); Neutrophils % (auto) 70.6 %; Platelet Count 315 K/uL (130-400); RDW Coefficient of Variation 14.1 % (11.5-14.5); RDW Standard Deviation 47.4 fL (36.4-46.3); White Blood Count 10.83 K/uL (4.8-10.8)
[2021-02-11 01:33] LABS: BUN Creatinine Ratio 13.1 (10-20); Calcium 7.9 mg/dl (8.5-10.1); Creatinine Clr Calc Pharmacy 66.7 ml/min; Est GFR (African American) 91.9 ml/min; Est GFR (Non-African American) 79.3 ml/min; Potassium 4.1 mmol/L (3.5-5.1)
[2021-02-11] MEDS: LACTATED RINGER'S 1,000 ML IV SCH ×2 (03:02→19:32)
[2021-02-11] MEDS: PIPERACILLIN/TAZOBACTAM 3.375 GM in DEXTROSE 5% 100 ML IV SCH ×3 (05:55→21:28)
--- NOTE | 2021-02-11 07:34 | Surgery Progress Note ---
Date of Service February 11, 2021 Assessment & Plan (1) Wound dehiscence: Plan: I think the best option all things considered would be to take him back to the operating room today and do an abdominal washout for the fluid and repair the dehiscence. I suspect the BRIAN drain is not functioning as it should be so I will replace that with a larger Amado drain. I will evaluate for an actual abscess as well. I I discussed the options with him as well as the risks associated which would include bleeding, infection, injury to another organ, DVT, PE, TX, CVA etc. I have answered his questions and he is agreeable to proceed with this we will do it later today. I am also going to have the IV team put in a PICC line as we are having difficulty with his IVs and I will likely initiate some TPN in the near future as well. Admission and Anticipated Discharge Date Admission Date: February 04, 2021 Subjective Events of last evening noted. Patient began having abdominal pain. CT scan was performed showing some fluid in the pelvis as well as a partial wound dehiscence. Patient currently looks comfortable although fatigued from being up most of the night. He has minimal abdominal pain currently. Physical Exam Physical Exam: Alert but appears fatigued. No acute distress His incision does look different than yesterday. He has some serous fluid extravasation and a palpable hernia. There are some mild erythema associated with it. There is no kyle purulence. BRIAN drain has pink serous fluid. Results & Data ([facility]) Vital Signs (Past 12 Hours) Vital Signs Temp Pulse Resp BP Pulse Ox 02/10/21 22:55 37.7 C H 84 20 101/65 91 02/10/21 22:50 37.7 C H 80 22 87/55 L 84 L PG Care Time/CCT Total # of Minutes Spent Total Time Spent with Patient: Total time spent is greater than 50% in coordination of care (as documented) at patient's floor/unit and/or counseling patient: Coding Level of Care Code None Diagnoses Wound dehiscence T81.30XA
--- NOTE | 2021-02-11 07:36 | Anesthesiology Consultation ---
Date of Service February 11, 2021 Assessment & Plan (1) Encounter for pre-operative examination: Chart Review Chart Review: Acceptable Risk for Surgery and Patient NOT seen in Pre Admission Testing Consults Requested none History Surgery Operation Date: 02/04/21 10:25 Proposed Procedures p Open Low Anterior Colon Resection - Arben Massey DO Operation Date: 02/11/21 11:00 Proposed Procedures p Exploratory Laparotomy with Abdominal Washout - Arben Massey DO Height/Weight Height: 5 ft 7 in Weight: 83 kg Allergies Allergy/AdvReac Type Severity Reaction Status Date / Time shellfish derived AdvReac Severe VIOLENT Verified 02/04/21 09:24 VOMITING alfuzosin AdvReac Intermediate DROPPED Verified 02/04/21 09:24 BLOOD PRESSURE Medications Home Medications Medication Instructions Recorded Confirmed Last Taken albuterol sulfate 90 mcg/actuation 2 puff INHALATION Q6H PRN g 12/04/20 02/04/21 Unknown aerosol inhaler (Ventolin HFA) atorvastatin 40 mg tablet (Lipitor) 40 mg PO QDD 12/04/20 02/04/21 02/03/21 17:00 metoprolol succinate 25 mg 12.5 mg PO QDD tab 12/04/20 02/04/21 02/03/21 17:00 tablet,extended release 24 hr (Toprol XL) nitroglycerin 0.4 mg sublingual 0.4 mg SUBLINGUAL Q5M PRN 12/04/20 02/04/21 Unknown tablet (Nitrostat) mirtazapine 15 mg tablet (Remeron) 15 mg PO HS 12/23/20 02/04/21 02/03/21 21:00 pantoprazole 40 mg granules 40 mg PO DAILY #30 ea 01/26/21 02/04/21 02/03/21 17:00 delayed-release for susp in packet (Protonix) aspirin 81 mg tablet,delayed 81 mg PO QPM 02/01/21 02/04/21 02/03/21 17:00 release Active Medications Generic Name Dose Route Start Last Admin Trade Name Freq PRN Reason Stop Dose Admin Hydrocodone Bitart/Acetaminophen 1 tab 02/09/21 08:40 02/10/21 21:53 Hydrocodone/Acetamophen 5/325mg Tab PO 02/23/21 08:39 1 tab Q4H PRN Administration Pain Hydrocodone Bitart/Acetaminophen 2 tab 02/09/21 08:40 02/10/21 10:32 Hydrocodone/Acetamophen 5/325mg Tab PO 02/23/21 08:39 2 tab Q4H PRN Administration Pain Aspirin 81 mg 02/04/21 21:00 02/10/21 20:00 Aspirin 81 Mg Ectab PO 03/06/21 20:59 81 mg QPM HILARIO Administration Atorvastatin Calcium 40 mg 02/04/21 19:00 02/10/21 16:38 Atorvastatin 40 Mg Tab PO 03/06/21 18:59 40 mg QDD HILARIO Administration Enoxaparin Sodium 30 mg 02/05/21 19:00 02/10/21 18:01 Enoxaparin Inj 30 Mg/0.3 Ml Syr SQ 03/07/21 18:59 30 mg Q24H HILARIO Administration Lactated Ringer's 1,000 mls @ 75 mls/hr 02/11/21 01:15 02/11/21 05:55 Lr IV 03/13/21 01:14 0 mls/hr .[id number] HILARIO Infusion Piperacillin Sod/Tazobactam 115 mls @ 28.75 mls/hr 02/11/21 06:00 02/11/21 05:55 Sod 3.375 gm/ Dextrose IV 02/21/21 05:59 28.8 mls/hr Q8H HILARIO Administration Protocol Metoprolol Succinate 12.5 mg 02/04/21 19:00 02/10/21 16:38 Metoprolol Succ 25mg Ext Rel Tab PO 03/06/21 18:59 12.5 mg QDD HILARIO Administration Morphine Sulfate 2 mg 02/04/21 18:26 02/10/21 18:04 Morphine Sulfate 2 Mg/Ml Carp IV 02/18/21 18:25 2 mg Q1H PRN Administration Pain (1,2,3,4,5) & Pre PT Morphine Sulfate 4 mg 02/04/21 18:26 02/06/21 01:21 Morphine Sulfate 4 Mg/Ml 1 Ml Carp\Vial IV 02/18/21 18:25 4 mg Q1H PRN Administration Pain (6,7,8,9,10) Pantoprazole Sodium 40 mg 02/05/21 09:00 02/10/21 08:09 Pantoprazole 40 Mg Tab PO 03/07/21 08:59 40 mg QAM HILARIO Administration Potassium Chloride 20 meq 02/07/21 09:00 02/10/21 20:00 Potassium Chloride Crtab 20 Meq Tabcr PO 03/09/21 08:59 20 meq BID HILARIO Administration Tamsulosin HCl 0.4 mg 02/08/21 09:00 02/10/21 08:09 Tamsulosin Hcl 0.4 Mg Cap PO 03/10/21 08:59 0.4 mg QAM HILARIO Administration NPO Date Last Intake of Fluids: 02/03/21 Time Last Intake of Fluids: 21:00 Last Intake of Fluids Comment: clear liquid diet yesterday Date Last Intake of Solids: 02/02/21 Time Last Intake of Solids: 21:00 Last Intake of Solids Comment: None today Past Medical History Medical History Aneurysm of MCA Anxiety Aortic stenosis Moderate per 06/04/20 ECHO Arthritis Atrial fibrillation DX'D 06/2019-LOOP ELECTRODE IN PLACE-F/U DR ENGLE On Pradaxa CAD (coronary artery disease) Mild to moderate nonobstructive CAD per 2016 cardiac cath Chronic obstructive pulmonary disease INHALER PRN IN WINTER BREATHING STABLE - AGGREVATED BY ILLNESS Depression Enlarged prostate History of GI bleed recent 01/10/21 Hyperlipidemia Hypertension Mass of colon PAD (peripheral artery disease) S/p CEA (left side-2017) Short-term memory loss Stroke 08/31/2017-HAD TPA- F/U DR MIRNA BUSTAMANTE-SPEECH WAS AFFECTED AT THE TIME-RESOLVED TIA (transient ischemic attack) 05/2011 Past Family History Family History Brother Family history of diabetes mellitus Cancer Diabetes Aunt Breast cancer Father Heart disease Other No family history of adverse response to anesthesia Past Surgical History Surgical History H/O carotid endarterectomy LEFT 09/2017 In [place] History of adenoidectomy History of anesthesia reaction BP DROPPED WITH COLONOSCOPY X 1 History of appendectomy History of cardiac cath X 3-09/2016, 2013, 2012-[facility]-NO ST[facility] History of cataract surgery R/L History of colon resection (02/04/21) Open Low Anterior Colon Resection Dr. Massey 02-04-2021 History of colonoscopy X 3 History of esophagogastroduodenoscopy (EGD) History of herniorrhaphy R/L INGUINAL History of loop recorder PLACED/PRESENT History of tonsillectomy Social History Smoking Status: Former smoker tobacco type: cigarettes and smokeless tobacco Do You Dip or Chew Tobacco: Yes Smoking End Date: 2013 Hx Alcohol Use: Yes Alcohol type: wine alcohol intake frequency: a few times a month Hx Substance Use: No substance use type: does not use Physical Exam Vital Signs Last Vital Signs Temp 99.9 F H 02/10/21 22:55 Pulse 84 02/10/21 22:55 Resp 20 02/10/21 22:55 BP 101/65 02/10/21 22:55 Pulse Ox 91 02/10/21 22:55 Testing Laboratory Results 02/11/21 00:56 02/11/21 00:56 PT 10.4 Seconds (9.0-12.0) 02/04/21 09:36 INR 1.0 (0.9-1.1) 02/04/21 09:36 APTT 27.6 Seconds (21.0-31.0) 02/04/21 09:36 Blood Type O Negative 02/04/21 09:36 Antibody Screen NEGATIVE 02/04/21 09:36 Laboratory Tests 02/11/21 02:44 SARS-CoV-2 (PCR) NEGATIVE Electrocardiogram Date: 02/10/21 DICTATED BY: Man Gibson MD Test Reason : Blood Pressure : / mmHG Vent. Rate : 058 BPM Atrial Rate : 058 BPM P-R Int : 184 ms QRS Dur : 126 ms QT Int : 458 ms P-R-T Axes : 047 018 023 degrees QTc Int : 449 ms Sinus bradycardia Right bundle branch block Abnormal ECG On 06/04/2020: ECG shows RBBB and sinus rhythm. Chest X-Ray Date: 01/05/21 Findings: + NAD FINDINGS: PA and lateral chest radiographs are obtained pressure no priors L electronic device projects over the left lower chest. The noting atherosclerotic calcification of the thoracic aorta. The pulmonary vasculature is noncongested. There is focal eventration of the right hemidiaphragm with bibasilar scarring/atelectasis. No airspace consolidation or pleural effusion is identified. There is no pneumothorax. The skeletal structures are osteopenic. The bony thorax appears intact. IMPRESSION: No active disease in the chest. Echocardiogram Date: 06/04/20 EF: 60% LV Function: normal RWMA: + none Mildly dilated left atrium. Mild mitral regurgitation. Aortic valve is moderately calcified. Moderate aortic stenosis with a valve area of 1.09 cm2, AV mean gradient=15 mmHg. Trace tricuspid regurgitation. No aortic regurgitation. Normal right atrium. Trileaflet aortic valve. Normal PA pressure. There is trace tricuspid regurgitation. Normal PA pressure. Read by Dr. Wilian Sidhu. Other Testing Chest CT with contrast 02/01/2021: FINDINGS: There are partially calcified biapical pleural-parenchymal scarlike densities. The central airways are patent. No pneumothorax. No pleural effusions. There is mild to moderate emphysema. There is a 5 mm indeterminate pulmonary nodule within the left lower lobe on image 152. Patchy densities at the base of the left lower lobe are nonspecific but favor atelectasis/dependent change. There is a punctate calcified granuloma within the right upper lobe on image 75. Distended right internal jugular vein is noted. This may be transient from the contrast injection. No suspicious lytic or blastic osseous lesions. Please refer to same day abdomen and pelvis CT for further evaluation of the abd ominal structures. A 1.8 cm hypodense lesion within the right hepatic dome favors a cyst. Normal esophagus. 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 This demonstrates up to 75% focal narrowing. There is also moderate to severe narrowing at the takeoff of the brachiocephalic artery also measuring up to 75%. This is due to the calcified plaque at these locations. Normal caliber thoracic aorta. The central pulmonary arteries are patent. The heart is normal in size. No pericardial effusion. Dense calcified plaque within the coronary arteries. No mediastinal or right hilar lymphadenopathy. There is a single mildly enlarged left hilar lymph node on image 153. This measures 1.5 x 1.1 cm. Evidence for a loop recorder within the left anterior chest wall. IMPRESSION: 1. A 5 mm indeterminate pulmonary nodule within the left lower lobe. 2. A single mildly enlarged left hilar lymph node measuring 1.5 x 1.1 cm. Follow-up chest CT in 6 months is recommended to evaluate for stability of the subcentimeter pulmonary nodule and left hilar lymph node.. 3. Thii-vn-[id number] emphysema. 4. 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 5. Please refer to the same day abdomen and pelvis CT for further evaluation of the abdominal structures. Abdomen/pelvis CT 02/01/2021: IMPRESSION: 1. Rectal soft tissue mass compatible with previously noted polyp. No evidence of metastatic disease. 2. Severe atherosclerotic disease. Loop recording 12/05/2020: The presenting rhythm is sinus bradycardia at 50 bpm with a 3.6 sec sinus pause. This is an abnormal implantable loop recorder remote follow-up. No significant device-related abnormalities were noted. We will continue with remote follow-up with ongoing active surveillance and monthly remote interrogation. CTA head and neck 01/14/2020: Impression: No significant change from the previous study of 08/31/2017. Again seen is markedly diminished caliber to the left vertebral artery along with calcified atherosclerotic plaque and narrowing of both interval carotid artery origins. L eft middle cerebral artery aneurysm (4.3mm) also remain stable. No new processes are detected. Comparison to 08/31/2017. Read by Dr. Saul Delgado. Cardiac catheterization 09/27/2016: Findings: Left main-large caliber and bifurcates into the LAD and left circumflex. No a ngiographically evident disease. LAD-large caliber entrance atypical. There is an ostial 40 to maybe 50% calcified lesion. Proximal segment has mild diffuse disease less than 30% stenosis. The vessel then gives off a small D1. The midsegment has mild 30% stenosis at the level of the ostium of D2. D2 is large with 50% stenosis. The distal LAD has less than 30% focal stenosis. The LAD and its branches appear angiographically similar to prior catheterization. CX-large caliber nondominant. Resume. The vessel then gives off a large OM1. Continues in the AV groove where it then gives off a large branching OM2. The distal vessel is small to medium in caliber and terminates in a small posterior lateral branch. Circumflex and its branches appear angiographically similar to prior catheterization. RCA-Large caliber dominant. Mild vessel has diffuse mild to moderate disease 30- 40% narrowing. Distal vessel has a focal 40% narrowing. The vessel then bifurcates into the PDA and posterior lateral branches which have no angiographically significant disease. The RCA and its branches appear angiographically similar to prior catheterization. Impression and plan: Mild to moderate nonocclusive coronary disease as described. No angiographic change from prior catheterization.
--- NOTE | 2021-02-11 07:41 | XRay Report ---
XR chest 1V portable INDICATION: MN ^Y ^hypoxia. TECHNIQUE: Single frontal radiograph of the chest was obtained. Comparison: Comparison is made to chest one view 02/08/2023 1 FINDINGS: No lines and tubes are seen. The cardiomediastinal silhouette is normal. Lungs are underinflated but clear. There is a small left and possible tiny right effusion. IMPRESSION: Small left and tiny right pleural effusion. No airspace opacities seen. ACT 112: Negative or not required by law. Electronically signed by: Anish Sal M.D. 02/11/2021 7:40 AM
[2021-02-11] MEDS: MoRPHine SULFATE 2 MG/ML CARP IV PRN ×2 (07:48→11:04)
--- NOTE | 2021-02-11 08:02 | CT Scan Report ---
CT abd pelvis IV con only CLINICAL INDICATION: MN ^post-op abdominal pain. TECHNIQUE: Helical axial images of the abdomen and pelvis were obtained and displayed at 5 and 1 mm i ntervals. Automated dose lowering techniques and/or adjustment according to patient size were utilize d for this exam. This exam was performed with intravenous contrast. COMPARISON: Comparison is made to CT abdomen pelvis 02/01/2021 FINDINGS: Lower chest: Bibasilar atelectasis is seen. 6 mm nodule is seen in the left lower lobe. Severe ather osclerotic changes are seen about the coronary vasculature and there is mild cardiomegaly with biatri al enlargement. Liver: Subcentimeter hypodensities in the liver are too small to characterize. Gallbladder and biliary tree: No calcified gallstones. Normal caliber wall. No intra- or extrahepatic biliary ductal dilation. Pancreas: Unremarkable, no focal lesions. Spleen: Unremarkable. Adrenals: Unremarkable. Kidneys and ureters: Subcentimeter hypodensities are too small to characterize. Bladder: Unremarkable. Bowel: Diverticulosis is seen without evidence of diverticulitis. Post surgical changes of rectal res ection noted. Lymph nodes Retroperitoneal: Unremarkable. Mesenteric: Unremarkable. Pelvic: Unremarkable. Reproductive organs: Unremarkable. Peritoneum: A lobulated simple fluid collection in the left retroperitoneal region is unchanged from prior exam Vessels: Atherosclerotic calcifications are seen. Abdominal wall: Postsurgical changes are seen with a midline incision with a 3.6 x 2.9 x 7.2 cm gas a nd fluid collection with rim enhancing augustine, consistent with abscess. Diastases of the rectus abdomi nis musculature noted along with an incisional hernia with intraperitoneal fat extending to the skin surface. A peritoneal drain enters in the left lower quadrant and terminates in the pelvis. Bones: Degenerative changes in the visualized spine. IMPRESSION: 1. Status post rectal resection with midline laparotomy. There is a gas and fluid collection at the incision concerning for abscess. 2. Left retroperitoneal lobulated fluid collection is unchanged and likely represents a lymphocele. ACT 112: Negative or not required by law. Electronically signed by: Anish Sal M.D. 02/11/2021 8:01 AM
[2021-02-11] MEDS: POTASSIUM CHLORIDE CRTAB 20 MEQ TABCR PO SCH ×2 (08:08→21:27)
[2021-02-11] MEDS: TAMSULOSIN HCL 0.4 MG CAP PO SCH (08:10)
[2021-02-11] MEDS: PANTOprazole 40 MG TAB PO SCH (08:10)
[2021-02-11 08:44] LABS: Basophils # (auto) 0.02 K/uL (0-0.2); Basophils % (auto) 0.2 %; Eosinophils # (auto) 0.22 K/uL (0-0.5); Eosinophils % (auto) 2.1 %; Hematocrit (blood only) 30.8 % (42-52); Hemoglobin 9.8 g/dL (14.0-18.0); Immature Granulocytes # (auto) 0.06 K/uL (0.00-0.02); Immature Granulocytes % (auto) 0.6 %; Lymphocytes # (auto) 1.43 K/uL (1.2-3.4); Lymphocytes % (auto) 13.8 %; Mean Corpuscular Hemoglobin 29.2 pg (25-34); Mean Corpuscular Hgb Conc 31.8 g/dL (32-36); Mean Corpuscular Volume 91.7 fL (80-100); Mean Platelet Volume 9.8 fL (7.4-10.4); Monocytes # (auto) 1.14 K/uL (0.11-0.59); Neutrophils # (auto) 7.48 K/uL (1.4-6.5); Neutrophils % (auto) 72.3 %; Platelet Count 328 K/uL (130-400); RDW Coefficient of Variation 14.3 % (11.5-14.5); RDW Standard Deviation 48.3 fL (36.4-46.3); Red Blood Count 3.36 M/uL (4.7-6.1); White Blood Count 10.35 K/uL (4.8-10.8)
--- NOTE | 2021-02-11 08:46 | Hospitalist Progress Note ---
Date of Service February 11, 2021 Assessment & Plan (1) Colonic mass: Plan: POD # 7 open low anterior colon resection with Dr Massey Post-op management per primary -- DVT proph w Lovenox Pathology without evidence for malignancy Anemia and iron stores were checked which showed an iron of 18 and is getting his second dose of Venofer 02/10 Slightly worse pain AM/lunch 02/10 Had been on full liquid diet Worsening pain overnight, eval by general surgery. Hypotensive with SBP in the 80s. Elevated WBC, repeat CTAP: IMPRESSION: 1. Status post rectal resection with midline laparotomy. There is a gas and fluid collection at the incision concerning for abscess. 2. Left retroperitoneal lobulated fluid collection is unchanged and likely represents a lymphocele. Slight elevation in temp (typically cold) of 37.7C last evening Placed on Zosyn --> WBC elevation now 10.3k Hgb 9.8 and stable -- will hold off on further venofer at this time. Kidney function stable Made NPO Bedrest Placed back on IVF while NPO -- monitor volume in patient w/ PICC line to be obtained for possible TPN to start soon Plans for OR today for abdominal washout and eval for abscess as well as placement of larger drain for concerns of intra-abdominal abscess & address incisional hernia/diastases rectus wound dehiscence Labs from AM pending Plans for rehab at d/c eventually once current issue resolved (2) Wound dehiscence: Plan: noted to have some separations at the skin edges around incision'palpable hernia, saturated dressings just changed by RN plans for OR today for washout (3) Acute respiratory failure with hypoxia: Plan: 80 yo M w/ pMHx. of OA, COPD, MCA aneurysm, colon cancer, moderate , H/O carotid endarterectomy and PAD who is hospitalized for colectomy by Dr Massey on 02/04 Hypoxia in postoperative setting requiring 3 L nasal cannula with a history of COPD and no home oxygen requirement POD7 colon mass removal with Dr. Massey White blood count 16 and normalized on 02/06 and patient has remained afebrile Chest x-ray did show emphysema and questionable atelectasis with new small pleural effusions and patient with moderate aortic stenosis BNP within normal limits and echo from May of this year with an EF of 60%, moderate aortic stenosis and mild left atrial dilation CT of the chest previously without any effusions however did note some abnormal findings that will need follow-up CAT scan imaging in 6 months for surveillance and possible pulmonary follow-up which has been notified to general surgery team and they will arrange for follow-up at discharge IV fluids had been previously documented is discontinued but were continued through evening of 02/08 but after discussion with primary service and patient able to keep up with oral intake this was discontinued and patient has remained stable on room air since that time given repeat chest x-ray prior to discontinuation with progressive atelectasis White blood count remains normal limits and patient remains afebrile Had been up walking with therapy and encouraged more frequent ambulation previously Continue pulmonary toilet with flutter valve and incentive spirometry Supplemental oxygenation as needed, DuoNebs as needed 02/11 Had been saturating well yesterday through the day, however had increased abdominal discomfort. Surgery notified yesterday morning of pain/voluntary gaurding. Unfortunately, this worsening of pain seems to have decreased patients ability to take deep breaths, and was placed back on supplemental oxygen last evening and currently 95% on 3L CXR with small L and tiny R effusion, no opacity or consolidation Venofer x 2 has been given for iron low at 18 w/ prior complaints of sob which he reported had been stable Bedrest for now with plans to take patient back to OR for washout and new drain placement --> See above regarding increased abd pain/possible new abscess/wound dehiscence (4) Aortic stenosis, moderate: Plan: , moderate without aortic regurgitation on ECHO from 06/03/20 IV fluids had been continued through 02/08 but have since been discontinued and patient remains on room air Suspect volume overload was also contributing to hypoxia as above which was since resolved but now with intra abd abscess, worsening abd pain and back on IVF and supplemental O2. No s/sx volume overload at this time but will need to monitor while on IVF (5) Hypertension: Plan: BP controlled but became hypotensive (see above for current infxn/abscess) Continue metoprolol w/ hold parameters Of note was started on Flomax for urinary retention by primary service and patient has been on the lower side--> holding further flomax at this time d/t hypotension IVF as above Monitor (6) PAD (peripheral artery disease): Plan: restarted ASA by primary service but will place on hold due to need to take to OR as above (7) H/O carotid endarterectomy: Plan: Continue ASA, statin (8) Colon cancer: Plan: s/p colectomy - pain control with Dilaudid, Morphine and Tylenol - care per. primary surgical team Anemic with iron studies showing deficiency and getting Venofer as above x2. Holding on repeat dose currently. Hgb stable (9) Osteoarthritis of left hip: Plan: will need output f/u (10) Chronic obstructive pulmonary disease: Plan: Hx COPD/emphysema - COPD Hx. with no wheezing on exam and no home controller medications - continue with as needed Albuterol - May followup with pulm on outpt. Pt will also require 6mo CT f/u for L hilar adenopathy. (11) Hyperlipidemia: Plan: continue Atorvastatin (12) Lymphadenopathy, hilar: Plan: - f/u outpt with pulm for emphysema as above, repeat CT scan in ~6months (13) History of colon resection: Plan: Postop day 7 as above Taking to OR today for washout (14) Anemia: Plan: Normocytic B12 within normal limits Hemoglobin 9.7iron low at 18 above and ordered Venofer and will repeat tomorrow and complete 3 days if remains inpatient hgb improved to 10.1 on am labs but stable at 9.8 and was placed on IVF so suspect some dilutional 3rd dose venofer when able Follow CBC (15) Iron deficiency: Plan: Low at 18supplementation above (16) Hypokalemia: Plan: Resolved Continue to monitor now that NPO (17) Urinary retention: Plan: Mcgee placed on 02/07 evening for urinary retentionhas some blood-tinged urine in bag but no clotting Started on Flomax 0.4 mg daily on 02/08 by general surgery Per surgery maintaining Mcgee at this time but will need to monitor for retention once discontinued--> d/c'd AM 02/10 and will need to monitor for retention (removed 1 hr prior to eval and nothing at that time) Has voided since but given hypotension will hold further flomax. Monitor for retention Plan: NPO for OR today as above - management per surgery ASA placed on hold Eventual plans for rehab at d/c Admission and Anticipated Discharge Date Admission Date: February 04, 2021 Supervising Physician Co-Signing Physician Notes Attending Attestation - Chart reviewed in detail, care plan d/w GABI Vyas. I agree w/ the miller components of her consultation note. Patient with post-op pulmonary insufficiency. CXR without overt pulmonary edema or pneumonia. Continue O2 support, wean as tolerated. Hypoxia 2nd to COPD? Hypoxia 2nd to atelectasis? Combination? Consider dose of lasix. Consider CTA Chest to r/o PE. Operative note reviewed from today's procedure. Jerry Cagle MD Subjective Patient evaluated this morning. On phone with his daughter. Pain controlled at the present time but noted increase discomfort with coughing. had eventful night and aware he is going to surgery today for possible infection/wound dehiscence and placed back on abx. Feeling better than last nigth but still painful and with leakage from dressing. Always cold but no fever. No chest pain or shortness of breath. Back on supplemental oxygen due to inability to take deep breaths. Lungs stable on exam with bibasilar crackles but discussed no evidence of pneumonia. Review of Systems Review of Systems: All systems reviewed & are unremarkable except as noted in HPI & below Physical Exam Physical Exam: General: A&Ox3. NAD. Cooperative. Multiple blankets. Laying in bed talking on the phone. Fatigued appearing HEENT: Atraumatic, normocephalic. Visual acuity grossly intact, hearing grossly intact. Pulm: Diminished in the bases with faint bibasilar crackles. No wheezing or rhonchi appreciated. 92% on 3L NC increased work of breathing or accessory muscle use. Cardiac: RRR,+systolic murmur. Radial pulses intact and symmetrical. Trace edema bilaterally, PT pulse intact bilaterally Abdominal: +hypoactive bowel sounds, + distended, significant tenderness jacqui- incisional., BRIAN with serosanguineous drainage, decreased with pink serous fluid. mild erythema around incision with erythema, along with palpable hernia. Extremities: hands and feet warm and dry with sensation intact to soft touch. Results & Data Results & Data ([facility]) Vital Signs (Past 12 Hours) Vital Signs Temp Pulse Resp BP BP Pulse Ox 02/11/21 07:00 36.4 C L 70 22 98/65 L 95 02/10/21 22:55 37.7 C H 84 20 101/65 91 02/10/21 22:50 37.7 C H 80 22 87/55 L 84 L Laboratory Results 02/11/21 02/11/21 02/11/21 Range/Units 08:20 08:20 02:44 WBC 10.35 (4.8-10.8) K/uL RBC 3.36 L (4.7-6.1) M/uL Hgb 9.8 L (14.0-18.0) g/dL Hct 30.8 L (42-52) % MCV 91.7 (80-100) fL MCH 29.2 (25-34) pg MCHC 31.8 L (32-36) g/dL RDW Std Deviation 48.3 H (36.4-46.3) fL RDW Coeff of Kelsey 14.3 (11.5-14.5) % Plt Count 328 (130-400) K/uL MPV 9.8 (7.4-10.4) fL Immature Gran % (Auto) 0.6 % Neut % (Auto) 72.3 % Lymph % (Auto) 13.8 % [place] % (Auto) 11.0 % Eos % (Auto) 2.1 % Baso % (Auto) 0.2 % Neut # (Auto) 7.48 H (1.4-6.5) K/uL Lymph # (Auto) 1.43 (1.2-3.4) K/uL [place] # (Auto) 1.14 H (0.11-0.59) K/uL Eos # (Auto) 0.22 (0-0.5) K/uL Baso # (Auto) 0.02 (0-0.2) K/uL Immature Gran # (Auto) 0.06 H (0.00-0.02) K/uL Sodium 136 (136-145) mmol/L Potassium 3.9 (3.5-5.1) mmol/L Chloride 105 (98-107) mmol/L Carbon Dioxide 23 (21-32) mmol/L Anion Gap 8.0 (3-11) BUN 10 (7-18) mg/dl Creatinine 0.93 (0.6-1.4) mg/dl Est Cr Clr Drug Dosing 65.3 ml/min Est GFR ( Amer) 89.5 ml/min Est GFR (Non-Af Amer) 77.3 ml/min BUN/Creatinine Ratio 10.7 (10-20) Glucose 102 H (70-99) mg/dl Calcium 8.1 L (8.5-10.1) mg/dl COVID-19 Eval Order SARS-CoV-2 (PCR) NEGATIVE (Negative) 02/11/21 02/11/21 02/11/21 Range/Units 02:44 00:56 00:56 WBC 10.83 H (4.8-10.8) K/uL RBC 3.20 L (4.7-6.1) M/uL Hgb 9.5 L (14.0-18.0) g/dL Hct 29.3 L (42-52) % MCV 91.6 (80-100) fL MCH 29.7 (25-34) pg MCHC 32.4 (32-36) g/dL RDW Std Deviation 47.4 H (36.4-46.3) fL RDW Coeff of Kelsey 14.1 (11.5-14.5) % Plt Count 315 (130-400) K/uL MPV 9.7 (7.4-10.4) fL Immature Gran % (Auto) 0.6 % Neut % (Auto) 70.6 % Lymph % (Auto) 14.4 % [place] % (Auto) 13.0 % Eos % (Auto) 1.2 % Baso % (Auto) 0.2 % Neut # (Auto) 7.65 H (1.4-6.5) K/uL Lymph # (Auto) 1.56 (1.2-3.4) K/uL [place] # (Auto) 1.41 H (0.11-0.59) K/uL Eos # (Auto) 0.13 (0-0.5) K/uL Baso # (Auto) 0.02 (0-0.2) K/uL Immature Gran # (Auto) 0.06 H (0.00-0.02) K/uL Sodium 135 L (136-145) mmol/L Potassium 4.1 (3.5-5.1) mmol/L Chloride 105 (98-107) mmol/L Carbon Dioxide 23 (21-32) mmol/L Anion Gap 6.0 (3-11) BUN 12 (7-18) mg/dl Creatinine 0.91 (0.6-1.4) mg/dl Est Cr Clr Drug Dosing 66.7 ml/min Est GFR ( Amer) 91.9 ml/min Est GFR (Non-Af Amer) 79.3 ml/min BUN/Creatinine Ratio 13.1 (10-20) Glucose 108 H (70-99) mg/dl Calcium 7.9 L (8.5-10.1) mg/dl COVID-19 Eval Order Covid19 at [facility] SARS-CoV-2 (PCR) (Negative) Diagnostic Findings Abdomen/Pelvis CT 02/10/21 23:38 CT abd pelvis IV con only CLINICAL INDICATION: MN ^post-op abdominal pain. TECHNIQUE: Helical axial images of the abdomen and pelvis were obtained and displayed at 5 and 1 mm intervals. Automated dose lowering techniques and/or adjustment according to patient size were utilized for this exam. This exam was performed with intravenous contrast. COMPARISON: Comparison is made to CT abdomen pelvis 02/01/2021 FINDINGS: Lower chest: Bibasilar atelectasis is seen. 6 mm nodule is seen in the left lower lobe. Severe atherosclerotic changes are seen about the coronary vasculature and there is mild cardiomegaly with biatrial enlargement. Liver: Subcentimeter hypodensities in the liver are too small to characterize. Gallbladder and biliary tree: No calcified gallstones. Normal caliber wall. No intra- or extrahepatic biliary ductal dilation. Pancreas: Unremarkable, no focal lesions. Spleen: Unremarkable. Adrenals: Unremarkable. Kidneys and ureters: Subcentimeter hypodensities are too small to characterize. Bladder: Unremarkable. Bowel: Diverticulosis is seen without evidence of diverticulitis. Post surgical changes of rectal resection noted. Lymph nodes Retroperitoneal: Unremarkable. Mesenteric: Unremarkable. Pelvic: Unremarkable. Reproductive organs: Unremarkable. Peritoneum: A lobulated simple fluid collection in the left retroperitoneal region is unchanged from prior exam Vessels: Atherosclerotic calcifications are seen. Abdominal wall: Postsurgical changes are seen with a midline incision with a 3.6 x 2.9 x 7.2 cm gas and fluid collection with rim enhancing augustine, consistent with abscess. Diastases of the rectus abdominis musculature noted along with an incisional hernia with intraperitoneal fat extending to the skin surface. A peritoneal drain enters in the left lower quadrant and terminates in the pelvis. Bones: Degenerative changes in the visualized spine. IMPRESSION: 1. Status post rectal resection with midline laparotomy. There is a gas and fluid collection at the incision concerning for abscess. 2. Left retroperitoneal lobulated fluid collection is unchanged and likely represents a lymphocele. ACT 112: Negative or not required by law. Electronically signed by: Anish Sal M.D. 02/11/2021 8:01 AM Chest X-Ray 02/11/21 00:42 XR chest 1V portable INDICATION: MN ^Y ^hypoxia. TECHNIQUE: Single frontal radiograph of the chest was obtained. Comparison: Comparison is made to chest one view 02/08/2023 1 FINDINGS: No lines and tubes are seen. The cardiomediastinal silhouette is normal. Lungs are underinflated but clear. There is a small left and possible tiny right effusion. IMPRESSION: Small left and tiny right pleural effusion. No airspace opacities seen. ACT 112: Negative or not required by law. Electronically signed by: nAish Sal M.D. 02/11/2021 7:40 AM PG Care Time/CCT Total # of Minutes Spent Total Time Spent with Patient: Total time spent is greater than 50% in coordination of care (as documented) at patient's floor/unit and/or counseling patient: Coding Level of Care Code 47205 Subseq Hosp Care Lvl 3 Diagnoses Acute respiratory failure with hypoxia J96.01 Colonic mass K63.89 Aortic stenosis, moderate I35.0 Hypertension I10 PAD (peripheral artery disease) I73.9 H/O carotid endarterectomy Z98.890 Colon cancer C18.9 Osteoarthritis of left hip M16.12 Chronic obstructive pulmonary disease J44.9 Hyperlipidemia E78.5 Lymphadenopathy, hilar R59.0 History of colon resection Z90.49 Anemia D64.9 Iron deficiency E61.1 Hypokalemia E87.6 Urinary retention R33.9 Wound dehiscence T81.30XA
[2021-02-11 09:17] LABS: BUN Creatinine Ratio 10.7 (10-20); Calcium 8.1 mg/dl (8.5-10.1); Creatinine Clr Calc Pharmacy 65.3 ml/min; Est GFR (African American) 89.5 ml/min; Est GFR (Non-African American) 77.3 ml/min; Potassium 3.9 mmol/L (3.5-5.1)
[2021-02-11] MEDS ORDERED: fentaNYL citrate 100 MCG/2 ML VIAL ONE ×2 (12:20→14:32)
--- NOTE | 2021-02-11 12:27 | Anesthesiology Progress Note ---
Date of Service February 11, 2021 Anesthesia Post Procedure Vital Signs Vital Signs: Temp Pulse Resp BP BP Pulse Ox 02/11/21 11:00 98.4 F 72 26 H 99/61 L 92 02/11/21 09:01 98.4 F 69 18 104/66 92 02/11/21 07:00 97.5 F L 70 22 98/65 L 95 02/10/21 22:55 99.9 F H 84 20 101/65 91 02/10/21 22:50 99.9 F H 80 22 87/55 L 84 L 02/10/21 14:29 98.4 F 73 16 117/64 91 Pain Intensity Abdomen: Pain Intensity: 5 Transfer of Care Handoff Completed per policy Notes Mental Status: alert / awake / arousable and participated in evaluation Patient Amnestic to Procedure: Yes Nausea / Vomiting: adequately controlled Pain: adequately controlled Airway Patency, RR, SpO2: stable & adequate BP & HR: stable & adequate Hydration State: stable & adequate Anesthetic Complications: no major complications apparent and Pt Satisfied with anesthetic care
[2021-02-11] MEDS ORDERED: ATROPINE SULFATE 0.1 MG/ML 10ML SYR IV PRN (13:01)
[2021-02-11] MEDS ORDERED: ePHEDrine sulfate 50 MG/ML AMP IV PRN (13:01)
[2021-02-11] MEDS ORDERED: ONDANSETRON INJ 2 MG/ML 2 ML VIAL IV PRN (13:01)
[2021-02-11] MEDS ORDERED: fentaNYL citrate 100 MCG/2 ML VIAL IV PRN (13:01)
[2021-02-11] MEDS ORDERED: KETAMINE 50 MG/5 ML SYRINGE ONE (13:12)
[2021-02-11] MEDS ORDERED: DEXAMETHASONE SOD INJ 4 MG/ML VIAL ONE (13:12)
[2021-02-11] MEDS ORDERED: LIDOCAINE 2% 2 ML VIAL/AMP(20MG/ML) INFIL ONE (13:12)
[2021-02-11] MEDS ORDERED: PROPOFOL IV EMULSION 10 MG/ML 20 ML VIAL IV ONE (13:12)
[2021-02-11] MEDS ORDERED: ONDANSETRON INJ 2 MG/ML 2 ML VIAL ONE (13:12)
[2021-02-11] MEDS ORDERED: ACETAMINOPHEN 1000 MG/100 ML IV IV ONE (13:14)
[2021-02-11] MEDS ORDERED: SUGAMMADEX SODIUM 200 MG/2 ML VIAL IV ONE (14:08)
[2021-02-11] MEDS ORDERED: ePHEDrine sulfate 50 MG/ML AMP ONE (14:17)
[2021-02-11] MEDS ORDERED: PHENYLEPHRINE 100MCG/ML 5ML SYR ONE (14:17)
[2021-02-11] MEDS ORDERED: ROCURONIUM BROMIDE 10 MG/ML 5 ML VIAL IV ONE (14:18)
--- NOTE | 2021-02-11 14:50 | Operative Report ---
PG Post Operative Report Pre & Post Diagnosis Operation Date: 02/04/21 10:25 Pre-Op Diagnosis: Colon Mass Post-Op Diagnosis: Colon Mass Operation Date: 02/11/21 11:00 Pre-Op Diagnosis: Abdominal Wound Dehiscence Post-Op Diagnosis: Abdominal Wound Dehiscence I identified the patient and participated in the time-out.: Yes Procedure Operation Date: 02/04/21 10:25 Actual Procedures p Open Low Anterior Colon Resection - Arben Massey DO Operation Date: 02/11/21 11:00 Actual Procedures p Exploratory Laparotomy with Abdominal Washout and Fascial Closure(Not Applicable) - Arben Massey DO Surgeon Arben Massey DO Concrete Technician annalee Serrato Estimated Blood Loss 10 Findings Consistent with Post-Op Diagnosis Specimens fluid for culture/gram stain Description of Procedure After informed consent was obtained the patient was taken to the operating room and placed in supine position. After successful intubation I removed his BRIAN drain as well as a skin [place]. The abdomen was then sterilely prepped and draped with Betadine solution. I began by finger fractionating the incision. This exposed about a 4 cm fascial dehiscence towards the lower pole of the incision. There was a loop of incarcerated small bowel. We encountered some fluid. There was no foul odor. It was pink in coloration. I did send a sample for culture and Gram stain. I then removed the remainder of his 0 PDS fascial sutures. Again I finger fractionated the fascia and started to explore the lower abdomen. There was no evidence of anastomotic leak. There was again no foul odor no succus. All of the fluid was serous in nature. I did not want a risk disrupting the anastomosis however I was able to look into the pelvis itself and again encountered a small amount of fluid which I suctioned out. The bowel was nice and pink with no evidence of ischemia. The anastomosis appeared to be intact and in good shape. The bladder itself was adherent to the undersurface of the fascia. I broke this up with finger fractionation as well. All the small bowel looked good. There was some inflammation and exudate around the small bowel loop that was in the hernia defect. Again no bowel injury. I then thoroughly irrigated the abdomen with multiple liters of warm irrigant. A 19 [place] Amado drain was placed into the pelvis and brought out through his previous drain site. There is secured to the skin using 2-0 nylon. The fascia was then closed using 0- looped PDS starting either pole and running them together and securing them in the midline. Soft tissue was also thoroughly irrigated. It was closed very loosely with skin [place] over top of a Dank drain. Silver dressing, gauze and tape was used as a dressing. The patient was awakened extubated and transferred recovery in stable condition. I attest to the content of the Intraoperative Record and any orders documented therein. Any exceptions are noted below.
--- NOTE | 2021-02-11 16:06 | Anesthesiology Progress Note ---
Date of Service February 11, 2021 Anesthesia Post Procedure Vital Signs Vital Signs: Temp Pulse Pulse Resp BP BP Pulse Ox 02/11/21 15:55 72 24 118/56 L 93 02/11/21 15:45 71 20 102/55 L 92 02/11/21 15:35 74 18 105/39 L 92 02/11/21 15:25 74 24 100/59 L 94 02/11/21 15:15 72 22 100/59 L 94 02/11/21 15:05 73 22 98/56 L 100 02/11/21 14:55 73 23 95/50 L 100 02/11/21 14:46 36.3 C L 70 22 88/51 L 92 02/11/21 12:54 37.4 C 83 22 109/62 88 L 02/11/21 11:00 36.9 C 72 26 H 99/61 L 92 02/11/21 09:01 36.9 C 69 18 104/66 92 02/11/21 07:00 36.4 C L 70 22 98/65 L 95 02/10/21 22:55 37.7 C H 84 20 101/65 91 02/10/21 22:50 37.7 C H 80 22 87/55 L 84 L Pain Intensity Abdomen: Pain Intensity: 5 Transfer of Care Handoff Completed per policy Notes Mental Status: alert / awake / arousable and participated in evaluation Patient Amnestic to Procedure: Yes Nausea / Vomiting: adequately controlled Pain: adequately controlled Airway Patency, RR, SpO2: stable & adequate BP & HR: stable & adequate Hydration State: stable & adequate Anesthetic Complications: no major complications apparent and Pt Satisfied with anesthetic care
[2021-02-11] MEDS: METOPROLOL SUCC 25MG EXT REL TAB PO SCH (16:45)
[2021-02-11] MEDS: ATORVASTATIN 40 MG TAB PO SCH (16:46)
--- NOTE | 2021-02-11 17:45 | XRay Report ---
XR chest 1V portable HISTORY: 80 years-old Male hypoxia, confusion acute hypoxia with confusion COMPARISON: Chest radiograph of same day at 12:35 AM TECHNIQUE: Portable AP view the chest FINDINGS: Cardiac silhouette is enlarged. Atherosclerotic plaque of the thoracic aorta. Loop recorder device. U nchanged right hemidiaphragmatic elevation. No pneumothorax. Unchanged blunting of the costophrenic a ngles with bibasilar atelectasis. IMPRESSION: 1. Cardiomegaly without pulmonary edema. 2. Unchanged right hemidiaphragm elevation with bibasilar atelectasis. ACT 112: Negative or not required by law. The above report was generated using voice recognition software. It may contain grammatical, syntax o r spelling errors. Electronically signed by: Darin Gaytan M.D. 02/11/2021 5:44 PM
[2021-02-11] MEDS ORDERED: FUROSEMIDE 10 MG in SYRINGE 0 ML IV ONE (18:00)
[2021-02-11] MEDS: ENOXAPARIN INJ 30 MG/0.3 ML SYR SQ SCH (21:27)
[2021-02-11] MEDS: ACETAMINOPHEN 1,000 MG/100 ML VIAL IV PRN (23:59)
[2021-02-12] MEDS: LACTATED RINGER'S 1,000 ML IV SCH (06:26)
[2021-02-12] MEDS: PIPERACILLIN/TAZOBACTAM 3.375 GM in DEXTROSE 5% 100 ML IV SCH ×3 (06:26→21:33)
[2021-02-12 06:35] LABS: Hematocrit (blood only) 31.1 % (42-52); Hemoglobin 9.9 g/dL (14.0-18.0); Immature Granulocytes # (auto) 0.04 K/uL (0.00-0.02); Immature Granulocytes % (auto) 0.4 %; Lymphocytes # (auto) 0.87 K/uL (1.2-3.4); Lymphocytes % (auto) 8.2 %; Mean Corpuscular Hemoglobin 29.6 pg (25-34); Mean Corpuscular Hgb Conc 31.8 g/dL (32-36); Mean Corpuscular Volume 92.8 fL (80-100); Mean Platelet Volume 9.8 fL (7.4-10.4); Monocytes # (auto) 0.71 K/uL (0.11-0.59); Monocytes % (auto) 6.7 %; Neutrophils # (auto) 9.01 K/uL (1.4-6.5); Neutrophils % (auto) 84.7 %; Platelet Count 385 K/uL (130-400); RDW Coefficient of Variation 14.3 % (11.5-14.5); RDW Standard Deviation 48.1 fL (36.4-46.3); Red Blood Count 3.35 M/uL (4.7-6.1); White Blood Count 10.63 K/uL (4.8-10.8)
[2021-02-12 07:08] LABS: Albumin Level 2.1 gm/dl (3.4-5.0); BUN Creatinine Ratio 11.6 (10-20); Calcium 8.4 mg/dl (8.5-10.1); Est GFR (African American) 97.3 ml/min; Est GFR (Non-African American) 83.9 ml/min; Magnesium 2.2 mg/dl (1.8-2.4); Potassium 4.1 mmol/L (3.5-5.1)
[2021-02-12 07:11] LABS: Albumin Globulin Ratio 0.5 (0.9-2); Bilirubin,Total 0.6 mg/dl (0.2-1); Globulin 3.9 gm/dl (2.5-4.0)
--- NOTE | 2021-02-12 08:26 | Hospitalist Progress Note ---
Date of Service February 12, 2021 Assessment & Plan (1) Colonic mass: Plan: POD # 8 open low anterior colon resection with Dr Massey Post-op management per primary -- DVT proph w Lovenox Pathology without evidence for malignancy Anemia and iron stores were checked which showed an iron of 18 and is getting his second dose of Venofer 02/10 Slightly worse pain AM/lunch 02/10 Had been on full liquid diet Worsening pain overnight, eval by general surgery. Hypotensive with SBP in the 80s. Elevated WBC, repeat CTAP: IMPRESSION: 1. Status post rectal resection with midline laparotomy. There is a gas and fluid collection at the incision concerning for abscess. 2. Left retroperitoneal lobulated fluid collection is unchanged and likely represents a lymphocele. POD#1 p Exploratory Laparotomy with Abdominal Washout and Fascial Closure(Not Applicable) - Arben Massey, DO OP report with noted fascial dehiscence towards lower pole of incision with loop of INCARCERATED BOWEL, some fluid (sent for cx/gs). Bladder was adherant to bowel and this was broken up with finger fractionation. Some inflammation and exudate around small bowel loop within hernia defect without bowel injury. Amado drain placed Continues on Zosyn for antibiotics and WBC currently 10.6K, afebrile Placement of PICC line this morning for anticipated TPN however did discuss with general surgery regarding patient's absent bowel sounds and ordered clear liquid diet by them and they would like this to be continued at this time. Patient has not had much of an appetite so suspect he will not take much by mouth and remains on IV fluids however worsening respiratory status secondary to c ongestion and received a dose of Lasix 20 mg IV this morning and will repeat this afternoon for congestion confirmed by x-ray and patient with history of aortic stenosis Continue pulmonary toilet lesion as tolerated Hemoglobin stable and urine output adequate, will maintain Mcgee for now Procedure general surgery to be covering over the weekend Anticipate rehab at discharge and plan for [facility] when medically stable Wound culture on 02/11 with gram-negative bacillifollow (2) Wound dehiscence: Plan: noted to have some separations at the skin edges around incision'palpable hernia, saturated dressings just changed by RN Return to the OR 06/14 as above (3) Acute respiratory failure with hypoxia: Plan: 80 yo M w/ pMHx. of OA, COPD, MCA aneurysm, colon cancer, moderate , H/O carotid endarterectomy and PAD who is hospitalized for colectomy by Dr Massey on 02/04 Hypoxia in postoperative setting requiring 3 L nasal cannula with a history of COPD and no home oxygen requirement POD8 colon mass removal with Dr. Massey White blood count 16 and normalized on 02/06 and patient has remained afebrile Chest x-ray did show emphysema and questionable atelectasis with new small pleural effusions and patient with moderate aortic stenosis BNP within normal limits and echo from May of this year with an EF of 60%, moderate aortic stenosis and mild left atrial dilation CT of the chest previously without any effusions however did note some abnormal findings that will need follow-up CAT scan imaging in 6 months for surveillance and possible pulmonary follow-up which has been notified to general surgery team and they will arrange for follow-up at discharge IV fluids had been previously documented is discontinued but were continued through evening of 02/08 but after discussion with primary service and patient able to keep up with oral intake this was discontinued and patient has remained stable on room air since that time given repeat chest x-ray prior to discontinuation with progressive atelectasis White blood count remains normal limits and patient remains afebrile Had been up walking with therapy and encouraged more frequent ambulation previously 02/12 Have been saturating well on room air on 02/10 however with development of worsening abdominal pain requiring repeat trip to the OR and additional IV fluids ordered patient with volume overload remaining on IV fluids with history of aortic stenosis Seen yesterday evening 02/11 at 1 patient was transferred from PACU on 10 L oxygen mask was saturating 84 to 87% SPO2 on 7 L oxygen mask and decision was made to maintain telemetry for closer monitoring and provided with 20 mg IV Lasix. Has been able to wean down slightly on oxygen mask and remained stable on 6 L currently and will administer additional 20 mg of IV Lasix this afternoon Patient denies any increased shortness of breath or cough/chest pain at this time Supplemental oxygen to maintain O2 sats Wean as tolerated Chest x-ray with effusions and bibasilar atelectasis along with elevated right hemidiaphragm contributing to above We will continue to monitor on telemetry --Per discussion with general surgery last evening low threshold to move to ICU if becomes unstable at any point Fortunately increased abdominal pain limiting patient's ability to take deep breaths and encouraged continued use of incentive spirometer and flutter valve DuoNeb continue as needed Also with low iron stores and would administer third dose when able however hemoglobin currently stable we will hold off at this time as he did receive 2 doses already 300 mg (4) Aortic stenosis, moderate: Plan: , moderate without aortic regurgitation on ECHO from 06/03/20 IV fluids had been continued through 02/08 but have since been discontinued and patient remains on room air Suspect volume overload was also contributing to hypoxia as above which was since resolved but now with intra abd abscess, worsening abd pain and back on IVF and supplemental O2. No s/sx volume overload at this time but will need to monitor while on IVF Continued IV fluids patient with increased congestion and JVD on exam this morning with nonproductive cough IV Lasix 20 mg provided this morning repeat this evening continue to monitor response May need continued doses of Lasix as likely will be starting parenteral nutrition (5) Hypertension: Plan: BP controlled but became hypotensive (see above for current infxn/abscess) Continue metoprolol w/ hold parameters Of note was started on Flomax for urinary retention by primary service and patient has been on the lower side--> holding further flomax at this time d/t hypotension IVF as above Blood pressure currently stable and continue to monitor (6) PAD (peripheral artery disease): Plan: restarted ASA by primary service but will place on hold due to need to take to OR as above (7) H/O carotid endarterectomy: Plan: Continue ASA, statin --> Resuming tomorrow as previously on hold for over as above (8) Colon cancer: Plan: s/p colectomy - pain control with Dilaudid, Morphine and Tylenol - care per. primary surgical team Anemic with iron studies showing deficiency and getting Venofer as above x2. Holding on repeat dose currently. Hgb stable currently (9) Osteoarthritis of left hip: Plan: will need output f/u (10) Chronic obstructive pulmonary disease: Plan: Hx COPD/emphysema - COPD Hx. with no wheezing on exam and no home controller medications - continue with as needed Albuterol - May followup with pulm on outpt. Pt will also require 6mo CT f/u for L hilar adenopathy. (11) Hyperlipidemia: Plan: continue Atorvastatin when able to take p.o. (12) Lymphadenopathy, hilar: Plan: - f/u outpt with pulm for emphysema as above, repeat CT scan in ~6months (13) History of colon resection: Plan: Postop day 8 as above POD 1 OR for washout as above Wound cx gram negative bacilli --> follow. Remains on Zosyn (14) Anemia: Plan: Normocytic B12 within normal limits Hemoglobin 9.7iron low at 18 above and ordered Venofer and will repeat tomorrow and complete 3 days if remains inpatient hgb improved to 10.1 on am labs but stable at 9.9 (from 9.8 on fluids) so suspect some dilutional 3rd dose venofer when able Follow CBC (15) Iron deficiency: Plan: Low at 18supplementation above (16) Hypokalemia: Plan: Resolved Continue to monitor now that NPO Has remained stable as well less is a level 12 continue to monitor (17) Urinary retention: Plan: Mcgee placed on 02/07 evening for urinary retentionhas some blood-tinged urine in bag but no clotting Started on Flomax 0.4 mg daily on 02/08 by general surgery Per surgery maintaining Mcgee at this time but will need to monitor for retention once discontinued--> d/c'd AM 02/10 and will need to monitor for retention (removed 1 hr prior to eval and nothing at that time) Has voided since but given hypotension will hold further flomax. Mcgee placed again per surgery 02/11 and given mobility time will continue but will need to monitor for retention once discontinued Plan: Continued inpatient stay Lovenox DVT prophylaxis, SCDs Admission and Anticipated Discharge Date Admission Date: February 04, 2021 Supervising Physician Co-Signing Physician Notes Attending Attestation - Chart reviewed in detail, care plan d/w GABI Vyas. I agree w/ the miller components of her consultation note except patient's colonic pathology report did NOT show colon cancer. Course complicated by abdominal wound dehiscence, incarcerated hernia, etc. s/p exploratory lap on 02/11 w/ abdominal wash-out. Remains on supplemental NC O2 - agree with additional diuresis. Jerry Cagle MD Subjective Patient evaluated this morning. Still states he feels a little "wonky" and that he has pain to his abdomen at site of surgery when he takes deep breaths which limits his ability to take full breath. Discussed CXR with congestion and with his will administer dose of lasix this morning. Denies passing any gas and no BM. Clear liquid tray at bedside -- discussed given absent BS would avoid anything by mouth and will message general surgery. Discussion with RN unaware of diet order as was under understanding he was to be getting TPN in near future. Patient denies any fevers or chills, chest pain, denies shortness of breath (but noted to have SpO2 drop as low as 79% this morning with mask not completely on), cough at times but reports limited due to pain, no sputum production, no nausea or vomiting but endorses no appetite. Mcgee draining yellow urine. Questions/concerns addressed at this time. Wound cx from OR yesterday with gram negative bacilli, remains on Zosyn. Review of Systems Review of Systems: All systems reviewed & are unremarkable except as noted in HPI & below Physical Exam Physical Exam: General: A&Ox3. States "feeling wonky". NAD but lying still in bed. appears fatigued. oxymask on with acceptable Spo2 HEENT: Atraumatic, normocephalic. Visual acuity grossly intact, hearing grossly intact. +JVD Pulm: Diminished in the bases with bibasilar crackles. No wheezing or rhonchi appreciated. 93% on 6L Oxymask No increased work of breathing or accessory muscle use. Cardiac: RRR (80bpm),+systolic murmur. Radial pulses intact and symmetrical. Trace edema bilaterally, PT pulse intact bilaterally Abdominal: +no BS, + distended, significant tenderness jacqui-incisional., BRIAN with serosanguineous drainage, decreased with pink serous fluid. abd dressing intact with dried drainage to inferior portion. Extremities: hands and feet warm and dry with sensation intact to soft touch. Results & Data Results & Data ([facility]) Vital Signs (Past 12 Hours) Vital Signs Temp Pulse Resp BP Pulse Ox 02/12/21 07:07 36.7 C 76 18 115/66 92 02/12/21 04:27 36.5 C 75 18 111/68 96 02/11/21 23:18 36.6 C 73 22 118/78 92 Laboratory Results 02/12/21 02/12/21 02/11/21 Range/Units 06:01 06:01 08:20 WBC 10.63 (4.8-10.8) K/uL RBC 3.35 L (4.7-6.1) M/uL Hgb 9.9 L (14.0-18.0) g/dL Hct 31.1 L (42-52) % MCV 92.8 (80-100) fL MCH 29.6 (25-34) pg MCHC 31.8 L (32-36) g/dL RDW Std Deviation 48.1 H (36.4-46.3) fL RDW Coeff of Kelsey 14.3 (11.5-14.5) % Plt Count 385 (130-400) K/uL MPV 9.8 (7.4-10.4) fL Immature Gran % (Auto) 0.4 % Neut % (Auto) 84.7 % Lymph % (Auto) 8.2 % [place] % (Auto) 6.7 % Eos % (Auto) 0.0 % Baso % (Auto) 0.0 % Neut # (Auto) 9.01 H (1.4-6.5) K/uL Lymph # (Auto) 0.87 L (1.2-3.4) K/uL [place] # (Auto) 0.71 H (0.11-0.59) K/uL Eos # (Auto) 0.00 (0-0.5) K/uL Baso # (Auto) 0.00 (0-0.2) K/uL Immature Gran # (Auto) 0.04 H (0.00-0.02) K/uL Sodium 137 136 (136-145) mmol/L Potassium 4.1 3.9 (3.5-5.1) mmol/L Chloride 105 105 (98-107) mmol/L Carbon Dioxide 25 23 (21-32) mmol/L Anion Gap 7.0 8.0 (3-11) BUN 9 10 (7-18) mg/dl Creatinine 0.81 0.93 (0.6-1.4) mg/dl Est Cr Clr Drug Dosing 75.0 65.3 ml/min Est GFR ( Amer) 97.3 89.5 ml/min Est GFR (Non-Af Amer) 83.9 77.3 ml/min BUN/Creatinine Ratio 11.6 10.7 (10-20) Glucose 127 H 102 H (70-99) mg/dl Calcium 8.4 L 8.1 L (8.5-10.1) mg/dl Magnesium 2.2 (1.8-2.4) mg/dl Total Bilirubin 0.6 (0.2-1) mg/dl AST 15 (15-37) U/L ALT 20 (12-78) U/L Alkaline Phosphatase 72 (45-117) U/L Total Protein 6.0 L (6.4-8.2) gm/dl Albumin 2.1 L (3.4-5.0) gm/dl Globulin 3.9 (2.5-4.0) gm/dl Albumin/Globulin Ratio 0.5 L (0.9-2) 02/11/21 Range/Units 08:20 WBC 10.35 (4.8-10.8) K/uL RBC 3.36 L (4.7-6.1) M/uL Hgb 9.8 L (14.0-18.0) g/dL Hct 30.8 L (42-52) % MCV 91.7 (80-100) fL MCH 29.2 (25-34) pg MCHC 31.8 L (32-36) g/dL RDW Std Deviation 48.3 H (36.4-46.3) fL RDW Coeff of Kelsey 14.3 (11.5-14.5) % Plt Count 328 (130-400) K/uL MPV 9.8 (7.4-10.4) fL Immature Gran % (Auto) 0.6 % Neut % (Auto) 72.3 % Lymph % (Auto) 13.8 % [place] % (Auto) 11.0 % Eos % (Auto) 2.1 % Baso % (Auto) 0.2 % Neut # (Auto) 7.48 H (1.4-6.5) K/uL Lymph # (Auto) 1.43 (1.2-3.4) K/uL [place] # (Auto) 1.14 H (0.11-0.59) K/uL Eos # (Auto) 0.22 (0-0.5) K/uL Baso # (Auto) 0.02 (0-0.2) K/uL Immature Gran # (Auto) 0.06 H (0.00-0.02) K/uL Sodium (136-145) mmol/L Potassium (3.5-5.1) mmol/L Chloride (98-107) mmol/L Carbon Dioxide (21-32) mmol/L Anion Gap (3-11) BUN (7-18) mg/dl Creatinine (0.6-1.4) mg/dl Est Cr Clr Drug Dosing ml/min Est GFR ( Amer) ml/min Est GFR (Non-Af Amer) ml/min BUN/Creatinine Ratio (10-20) Glucose (70-99) mg/dl Calcium (8.5-10.1) mg/dl Magnesium (1.8-2.4) mg/dl Total Bilirubin (0.2-1) mg/dl AST (15-37) U/L ALT (12-78) U/L Alkaline Phosphatase (45-117) U/L Total Protein (6.4-8.2) gm/dl Albumin (3.4-5.0) gm/dl Globulin (2.5-4.0) gm/dl Albumin/Globulin Ratio (0.9-2) PG Care Time/CCT Total # of Minutes Spent Total Time Spent with Patient: Total time spent is greater than 50% in coordination of care (as documented) at patient's floor/unit and/or counseling patient: Coding Level of Care Code 08992 Subseq Hosp Care Lvl 3 Diagnoses Colonic mass K63.89 Wound dehiscence T81.30XA Acute respiratory failure with hypoxia J96.01 Aortic stenosis, moderate I35.0 Hypertension I10 PAD (peripheral artery disease) I73.9 H/O carotid endarterectomy Z98.890 Colon cancer C18.9 Osteoarthritis of left hip M16.12 Chronic obstructive pulmonary disease J44.9 Hyperlipidemia E78.5 Lymphadenopathy, hilar R59.0 History of colon resection Z90.49 Anemia D64.9 Iron deficiency E61.1 Hypokalemia E87.6 Urinary retention R33.9
[2021-02-12] MEDS ORDERED: DEXTROSE 10% 1,000 ML IV PRN ×2 (08:33→12:02)
[2021-02-12] MEDS ORDERED: TPN/PPN CONSULT PHARMACY PRN ×2 (08:50→08:52)
[2021-02-12] MEDS: MoRPHine SULFATE 2 MG/ML CARP IV PRN (09:20)
[2021-02-12] MEDS ORDERED: FUROSEMIDE 20 MG in SYRINGE 0 ML IV ONE ×2 (10:30→15:00)
[2021-02-12] MEDS: POTASSIUM CHLORIDE CRTAB 20 MEQ TABCR PO SCH ×2 (10:49→20:33)
--- NOTE | 2021-02-12 10:53 | XRay Report ---
XR chest 1V portable HISTORY: 80 years-old Male f/u resp failure/hypoxia/atelectasis acute hypoxia with respiratory failu re COMPARISON: Chest radiograph 02/11/2021 TECHNIQUE: Portable AP view of the chest FINDINGS: A right-sided PICC has been placed with distal tip overlying the right atrium. The cardiac silhouette is enlarged. Loop recorder device. Atherosclerotic plaque of the thoracic aorta. Mild pulmonary vasc ular congestion. Unchanged right hemidiaphragm elevation with bibasilar atelectasis. There is stable blunting of the costophrenic angles. No large pleural effusion or pneumothorax. Degenerative changes of the shoulders and spine. IMPRESSION: 1. Cardiac with pulmonary vascular congestion. 2. Status post placement of a right-sided PICC, distal tip within the expected location of the right atrium. 3. Unchanged right hemidiaphragmatic elevation with bibasilar atelectasis. ACT 112: Negative or not required by law. The above report was generated using voice recognition software. It may contain grammatical, syntax o r spelling errors. Electronically signed by: Darin Gaytan M.D. 02/12/2021 10:52 AM
--- NOTE | 2021-02-12 10:58 | Surgery Progress Note ---
Date of Service February 12, 2021 Assessment & Plan (1) History of colon resection: Plan: POD 1/7. had PSBO from loop of small bowel in the wound dehiscence so hopefully will regain bowel fx soon appreciate IM help can have some clears today keep lees. will start TPN today as do not anticipate being able to resume regular diet over weekend [facility] covering for weekend. (2) Wound dehiscence: Admission and Anticipated Discharge Date Admission Date: February 04, 2021 Subjective pt seen. tired. denies abdominal pain at rest. Physical Exam Physical Exam: alert but appears fatigued. no distress. appears relatively comfortable. Gastrointestinal (Abdomen): soft. expected incisional tenderness. BRIAN with serous fluid. some serous drainage from incision. Results & Data ([facility]) Vital Signs (Past 12 Hours) Vital Signs Temp Pulse Resp BP Pulse Ox 02/12/21 07:07 36.7 C 76 18 115/66 92 02/12/21 04:27 36.5 C 75 18 111/68 96 02/11/21 23:18 36.6 C 73 22 118/78 92 PG Care Time/CCT Total # of Minutes Spent Total Time Spent with Patient: Total time spent is greater than 50% in coordination of care (as documented) at patient's floor/unit and/or counseling patient: Coding Level of Care Code None Diagnoses History of colon resection Z90.49 Wound dehiscence T81.30XA
[2021-02-12] MEDS: PANTOprazole 40 MG in SYRINGE 0 ML IV SCH (11:15)
--- NOTE | 2021-02-12 14:21 | Pharmacy Report ---
Pharmacy PN Initial Consult - Date of Service February 12, 2021 - Scope Pharmacy has been consulted to manage parenteral nutrition orders and order appropriate labs. As part of the Nutrition Support Team guidelines, pharmacy will work in conjunction with dietary when determining the patients caloric needs. - Subjective The patient is a 80 year old M admitted on 02/04/21 13:38 for Colon Mass. Patient is to receive parenteral nutrition for prolonged limited PO intake s/p colon resection with wound dehiscence. - Objective Height: 5 ft 7 in Weight: 83 kg Intake & Output (Last 24Hrs): Intake & Output 02/10/21 02/11/21 02/12/21 02/13/21 06:59 06:59 06:59 06:59 Intake Total 965 / 965 896.25 / 896.25 4333.97 / 4333.97 115 / 115 Output Total 1760 / 1760 620 / 620 4015 / 4015 Balance -795 / -795 276.25 / 276.25 318.97 / 318.97 115 / 115 Weight 83 kg 83 kg 83 kg Laboratory Data (Last 24 Hrs):: 02/12/21 02/12/21 06:01 06:01 Sodium 137 Potassium 4.1 Chloride 105 Carbon Dioxide 25 BUN 9 Creatinine 0.81 Glucose 127 H Calcium 8.4 L Phosphorus 4.2 Magnesium 2.2 Total Bilirubin 0.6 AST 15 ALT 20 Alkaline Phosphatase 72 Albumin 2.1 L Nutrition Assessment:: Please refer to the Notes section of the EMR for the most recent crushing foreman note. - Assessment * RS is an 80 year old male POD #8 colon resection w/ subsequent wound abscess/dehiscence * PICC line placed yesterday with anticipation for TPN - pharmacy consulted today for TPN * Discussed with registered dietitian, patient is deemed low risk for refeeding syndrome due to recent full liquid intake and stable electrolytes * Will start macronutrients near goal * Minimum volume TPN ordered by provider, IV fluids to be discontinued at time of TPN initiation * Triglycerides to be obtained tomorrow - Plan For day 1 of PN administration, the following will be ordered: Macronutrients Amino acids 100 grams/day Dextrose 200 grams/day Lipids 50 grams/day Micronutrients Combined electrolytes 40 mL - contains 35 mEq Na, 20 meq K, 4.5 mEq Ca, 5 mEq Mg, 35 mEq Cl, 29.5 mEq acetate per 20 mL Potassium phosphate 24 mMol Multivitamins 10 mL Trace Elements 10 mL Additional additives: thiamine 100 mg, folic acid 1 mg Total volume 1596 mL to be infused over 24 hrs will provide 1630 kcal/day Labs to be ordered per PN order protocol Pharmacy will follow and adjust parenteral nutrition orders on a daily basis. Thank you.
[2021-02-12] MEDS: ACETAMINOPHEN 1,000 MG/100 ML VIAL IV PRN (15:06)
[2021-02-12] MEDS: MoRPHine SULFATE 4 MG/ML 1 ML CARP\\VIAL IV PRN ×2 (15:07→22:36)
[2021-02-12] MEDS: HYDROCODONE/ACETAMOPHEN 5/325MG TAB PO PRN (15:40)
[2021-02-12] MEDS ORDERED: TPN IV SCH (16:00)
[2021-02-12] MEDS ORDERED: CENTRAL PN IV SCH (16:00)
[2021-02-12] MEDS: METOPROLOL SUCC 25MG EXT REL TAB PO SCH (16:27)
[2021-02-12] MEDS: ENOXAPARIN INJ 30 MG/0.3 ML SYR SQ SCH (20:30)
[2021-02-13] MEDS: PIPERACILLIN/TAZOBACTAM 3.375 GM in DEXTROSE 5% 100 ML IV SCH ×3 (05:40→21:33)
[2021-02-13] MEDS: POTASSIUM CHLORIDE CRTAB 20 MEQ TABCR PO SCH (08:10)
--- NOTE | 2021-02-13 08:47 | Surgery Progress Note ---
Date of Service February 13, 2021 Assessment & Plan (1) Wound dehiscence: Plan: POD2 dehiscence repair, POD9 LAR Await return of bowel function. Continue clears for now. Continue tpn. Increase activity as tolerated Continue antibiotics given pos pseudomonas culture from 02/11. On zosyn. (2) History of colon resection: Admission and Anticipated Discharge Date Admission Date: February 04, 2021 Subjective Having abdominal pain at incision but the nausea has resolved. Tolerated clear liquids but now feels full. No flatus or bowel movement yet. Physical Exam Constitutional: + frail appearing; no acute distress Respiratory: normal respiratory effort; no respiratory distress Auscultation: + diminished lung sounds (at bases) Cardiovascular: Rate/Rhythm: regular rate Heart Sounds: no murmur Gastrointestinal (Abdomen): Inspection/Auscultation: abdomen normal to ins pection, + abdomen distended, + abdominal surgical incision (clean), + abdominal surgical drain present (cloudy yellow) and + hypoactive bowel sounds Percussion/Palpation: + abdomen tender (diffusely) Neurologic: awake; no focal motor deficits Results & Data ([facility]) Vital Signs (Past 12 Hours) Vital Signs Temp Pulse Pulse Resp BP BP Pulse Ox 02/13/21 08:00 36.4 C L 67 18 115/60 96 02/13/21 07:00 56 L 02/13/21 04:00 36.4 C L 61 18 118/71 95 02/13/21 00:00 63 02/12/21 22:39 36.5 C 68 16 113/58 L 95
[2021-02-13 09:07] LABS: Basophils # (auto) 0.01 K/uL (0-0.2); Basophils % (auto) 0.1 %; Eosinophils # (auto) 0.26 K/uL (0-0.5); Eosinophils % (auto) 2.5 %; Hematocrit (blood only) 33.2 % (42-52); Hemoglobin 10.5 g/dL (14.0-18.0); Immature Granulocytes # (auto) 0.05 K/uL (0.00-0.02); Immature Granulocytes % (auto) 0.5 %; Lymphocytes # (auto) 1.95 K/uL (1.2-3.4); Lymphocytes % (auto) 18.8 %; Mean Corpuscular Hemoglobin 29.6 pg (25-34); Mean Corpuscular Hgb Conc 31.6 g/dL (32-36); Mean Corpuscular Volume 93.5 fL (80-100); Mean Platelet Volume 9.6 fL (7.4-10.4); Monocytes # (auto) 0.94 K/uL (0.11-0.59); Monocytes % (auto) 9.1 %; Neutrophils # (auto) 7.14 K/uL (1.4-6.5); Platelet Count 425 K/uL (130-400); RDW Coefficient of Variation 14.3 % (11.5-14.5); RDW Standard Deviation 48.7 fL (36.4-46.3); Red Blood Count 3.55 M/uL (4.7-6.1); White Blood Count 10.35 K/uL (4.8-10.8)
[2021-02-13 09:36] LABS: BUN Creatinine Ratio 17.2 (10-20); Calcium 8.4 mg/dl (8.5-10.1); Creatinine Clr Calc Pharmacy 63.3 ml/min; Est GFR (African American) 94.5 ml/min; Est GFR (Non-African American) 81.5 ml/min; Magnesium 2.1 mg/dl (1.8-2.4); Potassium 3.8 mmol/L (3.5-5.1)
[2021-02-13 09:42] LABS: Phosphorus 2.1 mg/dl (2.5-4.9)
[2021-02-13] MEDS: HYDROCODONE/ACETAMOPHEN 5/325MG TAB PO PRN (11:55)
[2021-02-13] MEDS: PANTOprazole 40 MG in SYRINGE 0 ML IV SCH (12:08)
[2021-02-13] MEDS ORDERED: POTASSIUM PHOSPHATE 15 MMOL in SODIUM CHLORIDE 0.9% 250 ML IV ONE (13:30)
--- NOTE | 2021-02-13 13:32 | XRay Report ---
KUB HISTORY: Acute generalized abdominal pain with distention. Recent abdominal surgery abdominal disten tion, pod 1 exp lap COMPARISON: CT abdomen and pelvis 02/11/2021 FINDINGS: Midline surgical [place] project over the lower abdomen and pelvis. A left lateral approach surgical drainage catheter terminates within the mid pelvis. Endoscopy clip projects over the mid de scending colon. Air-filled loops of large and small bowel are noted with small bowel loops measuring up to 3.8 cm. Enteric tube distal tip projects over the mid stomach. IMPRESSION: 1. Suggested postoperative ileus. 2. Surgical drainage catheter projects over the midline pelvis. 3. Distal tip of enteric tube projects over the mid stomach. ACT 112: Negative or not required by law. The above report was generated using voice recognition software. It may contain grammatical, syntax o r spelling errors. Electronically signed by: Darin Gaytan M.D. 02/13/2021 1:31 PM
[2021-02-13] MEDS: POLYETHYLENE (MIRALAX) 17 GM PACK PO SCH (13:38)
[2021-02-13] MEDS ORDERED: TPN IV SCH (16:00)
[2021-02-13] MEDS ORDERED: CENTRAL PN IV SCH (16:00)
[2021-02-13] MEDS: METOPROLOL SUCC 25MG EXT REL TAB PO SCH (17:04)
--- NOTE | 2021-02-13 18:46 | Hospitalist Progress Note ---
Date of Service February 13, 2021 Assessment & Plan (1) Colonic mass: Plan: POD #9 open low anterior colon resection with Dr Massey Post-op management per primary -- DVT proph w Lovenox Pathology without evidence for malignancy Anemia and iron stores were checked which showed an iron of 18 and is getting his second dose of Venofer 02/10 Slightly worse pain AM/lunch 9/ Had been on full liquid diet Worsening pain overnight, eval by general surgery. Hypotensive with SBP in the 80s. Elevated WBC, repeat CTAP: IMPRESSION: 1. Status post rectal resection with midline laparotomy. There is a gas and fluid collection at the incision concerning for abscess. 2. Left retroperitoneal lobulated fluid collection is unchanged and likely represents a lymphocele. POD#1 s/p Exploratory Laparotomy with Abdominal Washout and Fascial Closure(Not Applicable) - Arben Massey, DO OP report with noted fascial dehiscence towards lower pole of incision with loop of INCARCERATED BOWEL, some fluid (sent for cx/gs). Bladder was adherant to bowel and this was broken up with finger fractionation. Some inflammation and exudate around small bowel loop within hernia defect without bowel injury. Amado drain placed Continues on Zosyn for antibiotics and WBC currently 10.35K, afebrile Wound culture on 02/11 with gram-negative bacillifollow Seen by Dr. Shoemaker this AM. Abdominal XR shows post-op ileus. Patient made NPO and NG tube ordered with 600ml output. Continue to monitor. RN concerned for confusion however the patient was alert and oriented upon my exam. Noted to have some rambling, but easily redirected. Continue to monitor. Anticipate rehab at discharge and plan for [facility] when medically stable (2) Wound dehiscence: Plan: As above. (3) Acute respiratory failure with hypoxia: Plan: In the setting of anemia, volume overload, and COPD. Hypoxia in postoperative setting requiring 3 L nasal cannula with a history of COPD and no home oxygen requirement Chest x-ray with effusions and bibasilar atelectasis along with elevated right hemidiaphragm contributing to above BNP within normal limits and echo from May of this year with an EF of 60%, moderate aortic stenosis and mild left atrial dilation CT of the chest previously without any effusions however did note some abnormal findings that will need follow-up CAT scan imaging in 6 months for surveillance and possible pulmonary follow-up which has been notified to general surgery team and they will arrange for follow-up at discharge. Has received 2 doses of Venofer. Continue to monitor H&H. Currently O2 sat 96% on 4L nasal cannula. Wean as tolerated. Continue to monitor. (4) Aortic stenosis, moderate: Plan: , moderate without aortic regurgitation on ECHO from 06/03/20 (5) Hypertension: Plan: BP low today. 115/52. Hold metoprolol for hypotension and he is NPO. Continue to monitor. (6) PAD (peripheral artery disease): Plan: ASA on hold as he is NPO. (7) H/O carotid endarterectomy: Plan: ASA and statin on hold as the patient is NPO. (8) Colon cancer: Plan: s/p colectomy - Pathology negative for adenocarcinoma - pain control with Dilaudid, Morphine and Tylenol - care per. primary surgical team Anemic with iron studies showing deficiency and getting Venofer as above x2. Holding on repeat dose currently. Hgb stable currently (9) Anemia: Plan: Normocytic B12 within normal limits H&H improved to 10.5 and 33.2 today. 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 with no wheezing on exam and no home controller medications - continue with as needed Albuterol - May followup with pulm on outpt. Pt will also require 6mo CT f/u for L hilar adenopathy. (11) Hyperlipidemia: Plan: continue Atorvastatin when able to take p.o. (12) Lymphadenopathy, hilar: Plan: - f/u outpt with pulm for emphysema as above, repeat CT scan in ~6months (13) History of colon resection: Plan: As above. (14) Iron deficiency: Plan: Low at 18supplementation above (15) Hypokalemia: Plan: Resolved. Continue to monitor. (16) Urinary retention: Plan: Started on Flomax, but developed hypotension so this was discontinued. Mcgee replaced 02/11. Recommend leaving in place, and TOV in 7-10 days. (17) Hypophosphatemia: Plan: Replaced today. 15 mmol. Repeat in AM. (18) DVT prophylaxis: Plan: Lovenox, SCDs Admission and Anticipated Discharge Date Admission Date: February 04, 2021 Supervising Physician Co-Signing Physician Notes Attending Attestation - Chart reviewed in detail, care plan d/w PAULA Aldrich. I agree w/ the miller components of her consultation note. Again, pathology did NOT show colon cancer (tubulovillous adenoma seen). Course complicated by abdominal wound dehiscence, incarcerated hernia, etc. s/p exploratory lap on 02/11 w/ abdominal wash-out. Now with ileus - s/p NG tube placement. Wound culture from 02/11 from the ex lap growing GNR. Remains on zosyn while awaiting final culture. Jerry Cagle MD Subjective Patient having abdominal pain. No n/v. States he feels he needs to have a BM, but cannot go on a bed mccann. RN concerned for confusion, but patient able to answer all questions appropriately. Some rambling noted, but easily redirected. Review of Systems Respiratory: + cough; no dyspnea Cardiovascular: no chest pain Gastrointestinal: + abdominal pain, + nausea and + constipation; no vomiting Physical Exam Constitutional: + ill appearing and + overweight Eyes: PERRL, conjunctivae normal, anicteric sclerae ENMT: Ears: no hearing impairment Neck: normal visual inspection Respiratory: normal respiratory effort, lungs clear to auscultation Cardiovascular: Rate/Rhythm: regular rate and regular rhythm Vessels: no JVD Extremities: no edema Gastrointestinal (Abdomen): Inspection/Auscultation: + abdomen distended, normal bowel sounds (RUQ, RLQ ) and + hypoactive bowel sounds (LUQ, LLQ) Percussion/Palpation: + abdomen tender and + abdomen firm Dressings c/d/i Musculoskeletal: Head/Neck/Chest: normocephalic Neurologic: awake Speech / Cognition: normal speech Psychiatric: A+Ox3, euthymic affect Results & Data Results & Data ([facility]) Vital Signs (Past 12 Hours) Vital Signs Temp Pulse Pulse Resp BP Pulse Ox 02/13/21 17:54 69 02/13/21 16:00 37.0 C 76 18 115/52 L 96 02/13/21 12:00 36.9 C 72 16 129/67 95 02/13/21 08:00 36.4 C L 67 18 115/60 96 02/13/21 07:00 56 L PG Care Time/CCT Total # of Minutes Spent Total Time Spent with Patient: Total time spent is greater than 50% in coordination of care (as documented) at patient's floor/unit and/or counseling patient: Coding Level of Care Code 11561 Subseq Hosp Care Lvl 3 Diagnoses Colonic mass K63.89 Wound dehiscence T81.30XA Acute respiratory failure with hypoxia J96.01 Aortic stenosis, moderate I35.0 Hypertension I10 PAD (peripheral artery disease) I73.9 H/O carotid endarterectomy Z98.890 Colon cancer C18.9 Anemia D64.9 Chronic obstructive pulmonary disease J44.9 Hyperlipidemia E78.5 Lymphadenopathy, hilar R59.0 History of colon resection Z90.49 Iron deficiency E61.1 Hypokalemia E87.6 Urinary retention R33.9 Hypophosphatemia E83.39 DVT prophylaxis Z29.9
[2021-02-13] MEDS: ENOXAPARIN INJ 30 MG/0.3 ML SYR SQ SCH (20:28)
[2021-02-13] MEDS: MoRPHine SULFATE 2 MG/ML CARP IV PRN (21:33)
--- NOTE | 2021-02-14 01:36 | Communication Note ---
Date of Service: February 14, 2021 Called by bedside staff regarding patient's confusion and subsequent removal of NG tube during confusion. Upon review of chart, patient had NG placed yesterday for concerns of ileus. Will have NG replaced, and provided with cloth mitts to limit potential for removal of equipment due to confusion. Will get KUB to confirm placement of NG before returning it to suction. Resident Activity Tracking Resident Involvement: Resident Care Provided Care Provided: Adult [facility]
[2021-02-14] MEDS: PIPERACILLIN/TAZOBACTAM 3.375 GM in DEXTROSE 5% 100 ML IV SCH ×3 (05:12→21:15)
[2021-02-14 06:17] LABS: Basophils # (auto) 0.01 K/uL (0-0.2); Basophils % (auto) 0.1 %; Eosinophils # (auto) 0.34 K/uL (0-0.5); Eosinophils % (auto) 3.1 %; Hematocrit (blood only) 32.2 % (42-52); Hemoglobin 10.2 g/dL (14.0-18.0); Immature Granulocytes # (auto) 0.13 K/uL (0.00-0.02); Immature Granulocytes % (auto) 1.2 %; Lymphocytes # (auto) 1.66 K/uL (1.2-3.4); Mean Corpuscular Hemoglobin 29.1 pg (25-34); Mean Corpuscular Hgb Conc 31.7 g/dL (32-36); Mean Corpuscular Volume 91.7 fL (80-100); Mean Platelet Volume 9.7 fL (7.4-10.4); Monocytes # (auto) 1.22 K/uL (0.11-0.59); Monocytes % (auto) 11.1 %; Neutrophils # (auto) 7.67 K/uL (1.4-6.5); Neutrophils % (auto) 69.5 %; Platelet Count 441 K/uL (130-400); RDW Coefficient of Variation 14.4 % (11.5-14.5); RDW Standard Deviation 47.3 fL (36.4-46.3); Red Blood Count 3.51 M/uL (4.7-6.1); White Blood Count 11.03 K/uL (4.8-10.8)
[2021-02-14 06:43] LABS: BUN Creatinine Ratio 25.7 (10-20); Calcium 8.3 mg/dl (8.5-10.1); Creatinine Clr Calc Pharmacy 73.4 ml/min; Est GFR (African American) 100.4 ml/min; Est GFR (Non-African American) 86.6 ml/min; Magnesium 2.2 mg/dl (1.8-2.4); Phosphorus 2.4 mg/dl (2.5-4.9); Potassium 3.9 mmol/L (3.5-5.1)
[2021-02-14] MEDS ORDERED: POTASSIUM PHOS 3 MMOL/1 ML INFUSION IV ONE (07:23)
--- NOTE | 2021-02-14 07:35 | XRay Report ---
KUB CLINICAL HISTORY: Enteric tube placement. FINDINGS: An AP, portable, semierect radiograph of the lower chest and upper abdomen is compared to rafi nam dated 02/13/2021 and correlated with abdominal CT dated 02/11/2021. A right PICC line is in place. An enteric tube has been placed. The tip projects below the diaphragm over the gastric fundus. There are distended and gas-filled loops of small bowel which measure up to 4 cm. Gas is also seen in the colon, and a surgical drain is partially visualized in the pelvis. A surgical clip projects over the right lower quadrant. Atelectasis is seen at the lung bases. There are no abnormal abdominal calcific ations. The visualized bony structures appear intact. IMPRESSION: 1. An enteric tube has been placed as above. 2. Gaseous distention of the small bowel loops is similar to yesterday and favors a postoperative ile us. Clinical correlation will be required. Electronically signed by: Denny Dailey M.D. 02/14/2021 7:34 AM
[2021-02-14] MEDS ORDERED: POTASSIUM PHOSPHATE 15 MMOL in SODIUM CHLORIDE 0.9% 250 ML IV ONE (08:00)
[2021-02-14] MEDS: POLYETHYLENE (MIRALAX) 17 GM PACK PO SCH (09:28)
--- NOTE | 2021-02-14 09:32 | XRay Report ---
SINGLE VIEW CHEST CLINICAL HISTORY: Leukocytosis. FINDINGS: 2 AP, portable, upright chest radiographs are compared to study dated 02/12/2021. The examin ation is degraded by portable technique and patient rotation. A right PICC line is unchanged in posit ion. The heart is top normal for projection noting atherosclerotic calcification of the thoracic aort a. There is elevation of the right hemidiaphragm with bibasilar atelectasis. Suspect trace pleural ef fusions. No airspace consolidation is seen typical for pneumonia. No pneumothorax is seen. The skelet al structures are osteopenic. The bony thorax is grossly intact. IMPRESSION: 1. Suspect small pleural effusions. 2. There is no airspace consolidation typical for pneumonia. ACT 112: Negative or not required by law. Electronically signed by: Denny Dailey M.D. 02/14/2021 9:31 AM
[2021-02-14] MEDS: MoRPHine SULFATE 4 MG/ML 1 ML CARP\\VIAL IV PRN ×2 (10:50→21:14)
[2021-02-14] MEDS: PANTOprazole 40 MG in SYRINGE 0 ML IV SCH (11:02)
--- NOTE | 2021-02-14 11:19 | Pharmacy Report ---
PHA: Parenteral Nutrition Con - Date of Service February 14, 2021 - Scope Pharmacy was consulted on 02/12/21 to manage parenteral nutrition orders for this patient. - Subjective The patient is currently on day 3 of central parenteral nutrition for prolonged NPO/poor oral intake s/p colon resection now with suspected post op ileus - Objective Height: 5 ft 7 in Weight: 79 kg Diet: NPO Intake & Output (24hrs):: Intake & Output 02/12/21 02/13/21 02/14/21 02/15/21 06:59 06:59 06:59 06:59 Intake Total 4333.97 / 4333.97 1845 / 1845 3116.000 / 3116.000 115 / 115 Output Total 4015 / 4015 3845 / 3845 2345 / 2345 Balance 318.97 / 318.97 -1999 / 771.000 / 771.000 115 / 115 Weight 83 kg 79.2 kg 79 kg Laboratory Data (Last 24 Hr):: 02/14/21 05:38 Sodium 137 Potassium 3.9 Chloride 104 Carbon Dioxide 27 BUN 19 H Creatinine 0.75 Glucose 119 H Calcium 8.3 L Phosphorus 2.4 L Magnesium 2.2 Nutrition Assessment:: Please refer to the Notes section of the EMR for the most recent fire warden note. - Assessment * RS is an 80 year old male POD #10 colon resection w/ subsequent wound abscess/dehiscence, POD # 3 s/p wound abscess repair * Patient appears to be refeeding. He had a significant reduction in both potassium and phosphate since starting TPN. * ordered Kphos 15 mmol IV on 02/13 and 02/14 - this is in addition to Kphos in TPN * continue current amount of dextrose (200 g/day) * Both amino acids and fat component is at goal - Plan For day 3 of TPN administration, the following will be ordered: Macronutrients Amino acids 125 grams/day Dextrose 200 grams/day Lipids 50 grams/day Micronutrients Combined electrolytes 40 mL - contains 35 mEq Na, 20 meq K, 4.5 mEq Ca, 5 mEq Mg, 35 mEq Cl, 29.5 mEq acetate per 20 mL Potassium phosphate 36 mMol Potassium chloride 40 meq Multivitamins 10 mL Trace Elements 1 mL Additional additives: folic acid 1mg and thiamine 100 mg Total volume 1869.91 mL to be infused over 24 hrs will provide 1730 kcal/day Labs, as indicated, will be ordered per protocol Pharmacy will continue to follow and adjust parenteral nutrition orders on a daily basis. Thank you for allowing us to participate in the care of this patient.
--- NOTE | 2021-02-14 11:21 | Surgery Progress Note ---
Date of Service February 14, 2021 Assessment & Plan (1) Wound dehiscence: Plan: POD3 dehiscence repair, POD10 LAR Postop ileus - continue ng tube, npo. Continue tpn. Needs better pain management - encouraged use of pain meds Continue antibiotics given pos pseudomonas culture from 02/11. On zosyn. Discussed with daughter. (2) History of colon resection: Admission and Anticipated Discharge Date Admission Date: February 04, 2021 Subjective Had ng placed yesterday - 650 cc out, xray shows ileus pattern. Pulled it last night due to confusion. Replaced. This am, he is able to tell me where he is, what operations he had, year. Not complaining of pain but is very tender on exam - review of meds show he only received single dose of 2 mg of morphine all yesterday. No flatus or bowel movement. Physical Exam Constitutional: + frail appearing; no acute distress Respiratory: normal respiratory effort; no respiratory distress Auscultation: + diminished lung sounds (at bases) Cardiovascular: Rate/Rhythm: regular rate Heart Sounds: no murmur Gastrointestinal (Abdomen): Inspection/Auscultation: abdomen normal to inspection, + abdomen distended (less than yesterday), + abdominal surgical incision (clean, vesta in place), + abdominal surgical drain present (yellow) and + hypoactive bowel sounds Percussion/Palpation: + abdomen tender (diffusely) Neurologic: awake; no focal motor deficits Results & Data ([facility]) Vital Signs (Past 12 Hours) Vital Signs Temp Pulse Resp BP Pulse Ox 02/14/21 08:00 36.8 C 88 18 115/63 95 02/14/21 04:00 36.4 C L 78 16 135/71 95 02/14/21 00:00 92 Laboratory Results Abnormal lab results 02/14/21 02/14/21 Range/Units 05:38 05:38 WBC 11.03 H (4.8-10.8) K/uL RBC 3.51 L (4.7-6.1) M/uL Hgb 10.2 L (14.0-18.0) g/dL Hct 32.2 L (42-52) % MCHC 31.7 L (32-36) g/dL RDW Std Deviation 47.3 H (36.4-46.3) fL Plt Count 441 H (130-400) K/uL Neut # (Auto) 7.67 H (1.4-6.5) K/uL Bryan # (Auto) 1.22 H (0.11-0.59) K/uL Immature Gran # (Auto) 0.13 H (0.00-0.02) K/uL BUN 19 H (7-18) mg/dl BUN/Creatinine Ratio 25.7 H (10-20) Glucose 119 H (70-99) mg/dl Calcium 8.3 L (8.5-10.1) mg/dl Phosphorus 2.4 L (2.5-4.9) mg/dl Diagnostic Findings AXR shows ileus CXR shows bibasilar atelectasis
--- NOTE | 2021-02-14 14:00 | Hospitalist Progress Note ---
Date of Service February 14, 2021 Assessment & Plan (1) Colonic mass: Plan: POD #10 open low anterior colon resection with Dr Massey. POD #2 s/p ex lap with abdominal washout. Pathology without evidence for malignancy Post-op ileus noted on XR from 02/13/21. NG tube placed with 650ml output. - Patient pulled out NG tube overnight while confused. Replaced. - He is to remain NPO with NG tube in place per gen surg. Continue TPN. Anemia and iron stores were checked which showed an iron of 18. Patient received second dose of Venofer on 02/10. 3rd dose held. - H&H stable at 10.2 and 32.2 this AM. He remains on Zosyn. - Abdominal culture from 02/11 grew pseudomonas which is sensitive. Continues to have abdominal pain - IV morphine ordered. NPO for now. Post-op confusion reported. - Patient with intermittent confusion post-op. - Slight increase in WBC count this AM to 11.03. - Chest XR performed this AM negative for pneumonia. Small pleural effusions noted. UA ordered and negative. - afebrile - Monitor - Zyprexa ordered PRN for agitation and delerium PT/OT ordered. Anticipate discharge to rehab when medically stable. Plan for [facility] if approved. (2) Wound dehiscence: Plan: As above. (3) Acute respiratory failure with hypoxia: Plan: Hypoxia in post-op in the setting of anemia, volume overload, and COPD. Chest x-ray this morning with suspected small pleural effusions, but no pneumonia. BNP within normal limits and echo from May of this year with an EF of 60%, moderate aortic stenosis and mild left atrial dilation CT of the chest previously without any effusions however did note some abnormal findings that will need follow-up CAT scan imaging in 6 months for surveillance and possible pulmonary follow-up which has been notified to general surgery team and they will arrange for follow-up at discharge. Has received 2 doses of Venofer. Continue to monitor H&H. Fluid balance +164ml yesterday. Weight stable at 79kg, down 4kg from 02/12. Currently O2 sat 94% on 6L nasal Oxymask. Have not been able to wean off. Will check a CTA of the chest to r/o PE as potential cause. Continue to monitor. (4) Aortic stenosis, moderate: Plan: , moderate without aortic regurgitation on ECHO from 06/03/20 (5) Hypertension: Plan: BP stable at 146/76. Metoprolol on hold for hypotension and he is NPO. Continue to monitor. (6) PAD (peripheral artery disease): Plan: ASA on hold as he is NPO. (7) H/O carotid endarterectomy: Plan: ASA and statin on hold as the patient is NPO. (8) Colon cancer: Plan: s/p colectomy - Ruled out - Pathology negative for adenocarcinoma - pain control with Dilaudid, Morphine and Tylenol - care per. primary surgical team (9) Anemia: Plan: Normocytic B12 within normal limits H&H stable at 10.2 and 32.2. Consider 3rd dose of Venofer. Follow CBC. (10) Chronic obstructive pulmonary disease: Plan: Hx COPD/emphysema - COPD Hx. with no wheezing on exam and no home controller medications - continue with as needed Albuterol - May followup with pulm on outpt. Pt will also require 6mo CT f/u for L hilar adenopathy. (11) Hyperlipidemia: Plan: continue Atorvastatin when able to take p.o. (12) Lymphadenopathy, hilar: Plan: - f/u outpt with pulm for emphysema as above, repeat CT scan in ~6months (13) History of colon resection: Plan: As above. (14) Iron deficiency: Plan: Low at 18supplementation as above (15) Hypokalemia: Plan: Resolved. Continue to monitor. (16) Urinary retention: Plan: Started on Flomax, but developed hypotension so this was discontinued. Mcgee replaced 02/11. Recommend leaving in place, and TOV in 7-10 days. (17) Hypophosphatemia: Plan: Remains low at 2.4 today. Another 15mmol dose supplementation provided. Repeat in AM. (18) DVT prophylaxis: Plan: Lovenox, SCDs (19) Confusion: Plan: Patient has had some intermittent confusion post-operatively, although he is oriented during my exam today, but somewhat lethargic. - WBC count with slight bump to 11.03 this AM. - Ordered chest x-ray and UA to r/o infection as etiology---> chest XR negative for pneumonia, some small pleural effusions noted, and UA negative. - Could be multifactorial given age, 2 recent abdominal surgeries, and possible hospital delerium--continue to monitor - Neuro exam negative. - Recheck WBC count in AM. - Zyprexa 2.5mg ordered IM PRN HS for agitation or delirium (20) H. pylori infection: Plan: Noted on stomach biopsy from 01/26/21. - Continue Protonix. - Spoke with pharmacy, and unfortunately Clarithromycin is only available in tablets. Patient is NPO and cannot have PO medicine at this time. Will need to wait to start treatment until the patient is taking PO again. Hopefully post-op ileus resolves in the next few days, and he will be able to start the antibiotic . Plan: Plan for d/c to rehab when medically stable. Continue PT/OT. Admission and Anticipated Discharge Date Admission Date: February 04, 2021 Supervising Physician Co-Signing Physician Notes Attending Attestation - Chart reviewed in detail, care plan d/w PAULA Aldrich. I agree w/ the miller components of her consultation note. Again, pathology did NOT show colon cancer (tubulovillous adenoma seen). Course complicated by abdominal wound dehiscence, incarcerated hernia, etc. s/p exploratory lap on 02/11 w/ abdominal wash-out. Now with ileus - s/p NG tube placement. Wound culture from 02/11 from the ex lap with pseudomonas. Remains on zosyn; could narrow antibiotics once sensitivities are available. Jerry Cagle MD Subjective Patient pulled out NG tube overnight while confused. This was replaced. Mitts provided. Patient lethargic this AM. Continues to have some abdominal pain. Review of Systems Constitutional: + fatigue; no fever and no chills Respiratory: no dyspnea Cardiovascular: no chest pain Gastrointestinal: + abdominal pain; no nausea and no vomiting Endocrine: + fatigue Physical Exam Physical Exam: Temp Pulse Resp BP Pulse Ox 36.6 C 78 22 146/76 H 94 02/14/21 12:02/14/21 12:09 02/14/21 12:02/14/21 12:02/14/21 12:09 Patient is afebrile. He is hypertensive at 146/76. Constitutional: + ill appearing, + lethargic and + overweight; no acute distress Eyes: + anicteric sclerae ENMT: Ears: no hearing impairment Neck: normal visual inspection Respiratory: normal respiratory effort, lungs clear to auscultation Cardiovascular: Rate/Rhythm: regular rate and regular rhythm Heart Sounds: + murmur (slight systolic ) Vessels: no JVD Extremities: no edema Gastrointestinal (Abdomen): Inspection/Auscultation: + abdomen distended, normal bowel sounds (RUQ, RLQ ) and + hypoactive bowel sounds (LUQ, LLQ) Percussion/Palpation: + abdomen tender Musculoskeletal: Head/Neck/Chest: normocephalic Neurologic: moves all extremities Cranial Nerves: tongue midline and normal hearing Psychiatric: Orientation: alert, oriented x 3 and cooperative Results & Data Results & Data ([facility]) Vital Signs (Past 12 Hours) Vital Signs Temp Pulse Resp BP Pulse Ox 02/14/21 12:09 36.6 C 78 22 146/76 H 94 02/14/21 08:00 36.8 C 88 18 115/63 95 02/14/21 04:00 36.4 C L 78 16 135/71 95 PG Care Time/CCT Total # of Minutes Spent Total Time Spent with Patient: Total time spent is greater than 50% in coordin ation of care (as documented) at patient's floor/unit and/or counseling patient: Coding Level of Care Code 73921 Subseq Hosp Care Lvl 3 Diagnoses Colonic mass K63.89 Wound dehiscence T81.30XA Acute respiratory failure with hypoxia J96.01 Aortic stenosis, moderate I35.0 Hypertension I10 PAD (peripheral artery disease) I73.9 H/O carotid endarterectomy Z98.890 Colon cancer C18.9 Anemia D64.9 Chronic obstructive pulmonary disease J44.9 Hyperlipidemia E78.5 Lymphadenopathy, hilar R59.0 History of colon resection Z90.49 Iron deficiency E61.1 Hypokalemia E87.6 Urinary retention R33.9 Hypophosphatemia E83.39 DVT prophylaxis Z29.9 Confusion R41.0 H. pylori infection A04.8
[2021-02-14 14:26] LABS: Appearance Urine Clear (Clear); Bilirubin Urine Negative (Negative); Blood Urine Negative (Negative); Color Urine Yellow; Glucose Urine UA Negative (Negative); Ketones Urine Negative (Negative); Leukocyte Esterase Urine Negative (Negative); Nitrite Urine Negative (Negative); Protein Urine Negative (Negative); Specific Gravity Urine 1.017 (1.000-1.030); Urobilinogen Urine Negative (Negative); pH Urine >= 9.0 (4.5-7.5)
[2021-02-14] MEDS ORDERED: CENTRAL PN IV SCH (16:00)
[2021-02-14] MEDS ORDERED: TPN IV SCH (16:00)
[2021-02-14] MEDS: METOPROLOL SUCC 25MG EXT REL TAB PO SCH (16:18)
[2021-02-14] MEDS ORDERED: OLANZapine 10 MG/2.1 ML SDV IM PRN (18:09)
[2021-02-14] MEDS: ENOXAPARIN INJ 30 MG/0.3 ML SYR SQ SCH (18:29)
[2021-02-14] MEDS: MoRPHine SULFATE 2 MG/ML CARP IV PRN (23:58)
[2021-02-15] MEDS: PIPERACILLIN/TAZOBACTAM 3.375 GM in DEXTROSE 5% 100 ML IV SCH ×3 (05:51→21:50)
[2021-02-15] MEDS: MoRPHine SULFATE 2 MG/ML CARP IV PRN (05:58)
[2021-02-15 06:21] LABS: Basophils # (auto) 0.03 K/uL (0-0.2); Basophils % (auto) 0.3 %; Eosinophils # (auto) 0.45 K/uL (0-0.5); Eosinophils % (auto) 4.1 %; Hematocrit (blood only) 34.3 % (42-52); Hemoglobin 10.9 g/dL (14.0-18.0); Immature Granulocytes # (auto) 0.18 K/uL (0.00-0.02); Immature Granulocytes % (auto) 1.6 %; Lymphocytes % (auto) 17.3 %; Mean Corpuscular Hemoglobin 29.5 pg (25-34); Mean Corpuscular Hgb Conc 31.8 g/dL (32-36); Mean Corpuscular Volume 92.7 fL (80-100); Mean Platelet Volume 9.4 fL (7.4-10.4); Monocytes # (auto) 1.21 K/uL (0.11-0.59); Neutrophils # (auto) 7.22 K/uL (1.4-6.5); Neutrophils % (auto) 65.7 %; Platelet Count 433 K/uL (130-400); RDW Coefficient of Variation 14.2 % (11.5-14.5); RDW Standard Deviation 47.9 fL (36.4-46.3); White Blood Count 10.99 K/uL (4.8-10.8)
[2021-02-15 06:56] LABS: BUN Creatinine Ratio 27.3 (10-20); Calcium 8.5 mg/dl (8.5-10.1); Creatinine Clr Calc Pharmacy 79.8 ml/min; Est GFR (African American) 103.9 ml/min; Est GFR (Non-African American) 89.7 ml/min; Magnesium 2.3 mg/dl (1.8-2.4); Potassium 4.2 mmol/L (3.5-5.1)
[2021-02-15 06:58] LABS: Phosphorus 3.2 mg/dl (2.5-4.9)
--- NOTE | 2021-02-15 07:11 | CT Scan Report ---
CT angio chest PE protocol INDICATION: MN ^r/o PE. TECHNIQUE: Multidetector row helical CT of the chest was performed. Coronal and sagittal reformations were obtained. Automated dose lowering techniques and/or adjustment according to patient size were u tilized for this exam. Comparison: None available at the time of this dictation. FINDINGS: Lungs and pleura: Atelectasis versus scarring is seen in the dependent portions of the lungs. Scatter ed bullae are seen in the apices. There is a 6 mm nodule in the left lower lobe. There are trace bila teral pleural effusions. Heart and pericardium: Heart size is normal. No pericardial effusion. Vessels: No evidence of pulmonary embolism. Severe atherosclerotic calcifications are seen in the cor onary arteries and moderate atherosclerosis is seen in the aorta. Mediastinum and arelis: Unremarkable. Chest wall and lower neck: Unremarkable. Abdomen: Unremarkable. Bones: Degenerative changes in the thoracic spine. IMPRESSION: 1. No evidence of pulmonary embolism. 2. Trace pleural effusions. 3. 6 mm nodule in the left lower lobe. According to Fleischner criteria, no follow-up is required in low risk patients, in high-risk patients a 12 month follow-up CT can be optionally performed. ACT 112: Negative or not required by law. Electronically signed by: Anish Sal M.D. 02/15/2021 7:10 AM
--- NOTE | 2021-02-15 08:06 | Surgery Progress Note ---
Date of Service February 15, 2021 Assessment & Plan (1) History of colon resection: Plan: POD 4/11, wound dehiscence/LAR cont NGT, TPN mobilize out of bed as above. wound looks good. BRIAN serous. scant good bowel sounds will recheck KUB....if improved may pull ngt and start clears need to mobilize/PT/OT etc.... keep lees one more day (2) Wound dehiscence: Admission and Anticipated Discharge Date Admission Date: February 04, 2021 Subjective no flatus, wants out of bed Physical Exam Gastrointestinal (Abdomen): Inspection/Auscultation: + abdomen distended (mild) and + abdominal surgical drain present (serous 10 cc) Percussion/Palpation: abdomen soft NG 200 cc overnight Results & Data ([facility]) Vital Signs (Past 12 Hours) Vital Signs Temp Pulse Pulse Resp BP Pulse Ox 02/15/21 03:46 36.9 C 66 20 127/72 95 02/15/21 03:00 64 02/15/21 00:13 36.4 C L 77 16 110/67 91 PG Care Time/CCT Total # of Minutes Spent Total Time Spent with Patient: Total time spent is greater than 50% in coordination of care (as documented) at patient's floor/unit and/or counseling patient: Coding Level of Care Code None Diagnoses History of colon resection Z90.49 Wound dehiscence T81.30XA
[2021-02-15] MEDS: ACETAMINOPHEN 1,000 MG/100 ML VIAL IV SCH ×3 (08:09→23:38)
[2021-02-15] MEDS: PANTOprazole 40 MG in SYRINGE 0 ML IV SCH (12:23)
--- NOTE | 2021-02-15 14:05 | Hospitalist Progress Note ---
Date of Service February 15, 2021 Assessment & Plan (1) Colonic mass: Plan: S/p open low anterior colon resection with Dr. Massey on 02/04. 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 No evidence of malignancy. S/p Ex-Lap with abdominal washout and fascial closure on 02/[address] Massey. - Post-op management per primary - Pain management, bowel regimen, PT/OT, DVT prophylaxis with Lovenox per primary service -> Had 2 BMs today. Plan to pull NG tube today or tomorrow, stop TPN, and advance diet per primary team. (2) Acute respiratory failure with hypoxia: Plan: Hypoxia in postoperative setting requiring 3 L nasal cannula with a history of COPD and no home oxygen requirement. - Unclear cause; likely some element of atelectasis vs iatrogenic hypervolemia. Wean O2 as able. (3) Aortic stenosis, moderate: Plan: , moderate without aortic regurgitation on ECHO from 06/03/20. - Monitor (4) Hypertension: Plan: BP controlled today at 130/75. - Continue metoprolol (5) PAD (peripheral artery disease): Plan: - Restarted ASA by primary service. 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 - COPD Hx. With no wheezing on exam and no home controller medications. - Continue with as needed Albuterol - May follow-up with pulm on outpt. - Pt will also require 6mo CT f/u for L hilar adenopathy. (9) Hyperlipidemia: Plan: - Continue atorvastatin (10) Lymphadenopathy, hilar: Plan: - F/u outpt with pulm for emphysema as above, repeat CT scan in ~6months (11) History of colon resection: Plan: Postop day 6 as above (12) Anemia: Plan: Normocytic. B12 within normal limits. Hemoglobin 9.7iron low at 18 above and ordered Venofer and will repeat tomorrow and complete 3 days if remains inpatient. - Monitor CBC (13) Iron deficiency: Plan: Low at 18supplementation above (14) Urinary retention: Plan: Mcgee placed on 02/07 evening for urinary retention has some blood-tinged urine in bag but no clotting. - Started on Flomax 0.4 mg daily on 02/08 by general surgery - Per surgery maintaining Mcgee at this time but will need to monitor for retention once discontinued--> d/c'd AM 02/10 and will need to monitor for retention (removed 1 hr prior to eval and nothing at that time) Admission and Anticipated Discharge Date Admission Date: February 04, 2021 Subjective Doing well today. With some abdominal pain. Reports no fevers/chills, chest pain, shortness of breath, nausea, or vomiting. Physical Exam Constitutional: WD/WN, vitals as above Eyes: EOM intact bilaterally; no conjunctival abnormality ENMT: external ear and nose normal, oropharynx normal Neck: trachea midline, no thyromegaly normal visual inspection Respiratory: normal respiratory effort, lungs clear to auscultation no respiratory distress Cardiovascular: RRR, no murmur, no edema Gastrointestinal (Abdomen): Inspection/Auscultation: + abdomen abnormal to inspection (Bandaged) Musculoskeletal: no cyanosis or clubbing, extremities motor strength 5/5 Skin: no rashes, warm and dry Neurologic: moves all extremities and awake Psychiatric: Orientation: alert, oriented to person and cooperative Results & Data Results & Data ([facility]) Vital Signs (Past 12 Hours) Vital Signs Temp Pulse Pulse Resp BP BP Pulse Ox 02/15/21 11:52 36.7 C 82 18 127/76 92 02/15/21 08:09 36.7 C 68 18 124/67 96 02/15/21 08:00 63 02/15/21 03:46 36.9 C 66 20 127/72 95 02/15/21 03:00 64 PG Care Time/CCT Total # of Minutes Spent Total Time Spent with Patient: Total time spent is greater than 50% in coordination of care (as documented) at patient's floor/unit and/or counseling patient: Coding Level of Care Code 80457 Subseq Hosp Care Lvl 2 Diagnoses Acute respiratory failure with hypoxia J96.01 Colonic mass K63.89 Aortic stenosis, moderate I35.0 Hypertension I10 PAD (peripheral artery disease) I73.9 H/O carotid endarterectomy Z98.890 Osteoarthritis of left hip M16.12 Chronic obstructive pulmonary disease J44.9 Hyperlipidemia E78.5 Lymphadenopathy, hilar R59.0 History of colon resection Z90.49 Anemia D64.9 Iron deficiency E61.1 Urinary retention R33.9
--- NOTE | 2021-02-15 15:54 | XRay Report ---
KUB HISTORY: eval ileus COMPARISON: KUB 02/14/2021. FINDINGS: Nasogastric tube terminates in the stomach. Mildly dilated gas-filled loops of small bowel have improved. There is a surgical drain within the pelvis and midline skin [place]. There is also a surgical drain overlying the skin [place]. No renal calculi. No ureteral calculi. No pneumoperitoneu m or pneumatosis. IMPRESSION: 1. Interval improvement in the ileus. 2. Nasogastric tube terminates in the stomach. ACT 112: Negative or not required by law. Electronically signed by: Apolinar Montano M.D. 02/15/2021 3:52 PM
[2021-02-15] MEDS ORDERED: CENTRAL PN IV SCH (16:00)
[2021-02-15] MEDS ORDERED: TPN IV SCH (16:00)
[2021-02-15] MEDS: METOPROLOL SUCC 25MG EXT REL TAB PO SCH (17:33)
[2021-02-15] MEDS: ENOXAPARIN INJ 30 MG/0.3 ML SYR SQ SCH (19:24)
[2021-02-16] MEDS: HYDROCODONE/ACETAMOPHEN 5/325MG TAB PO PRN (00:29)
[2021-02-16] MEDS: PIPERACILLIN/TAZOBACTAM 3.375 GM in DEXTROSE 5% 100 ML IV SCH ×3 (05:56→22:08)
[2021-02-16 07:35] LABS: Hematocrit (blood only) 36.5 % (42-52); Hemoglobin 11.6 g/dL (14.0-18.0); Mean Corpuscular Hemoglobin 29.6 pg (25-34); Mean Corpuscular Hgb Conc 31.8 g/dL (32-36); Mean Corpuscular Volume 93.1 fL (80-100); Mean Platelet Volume 9.4 fL (7.4-10.4); Platelet Count 518 K/uL (130-400); RDW Coefficient of Variation 14.3 % (11.5-14.5); RDW Standard Deviation 48.2 fL (36.4-46.3); Red Blood Count 3.92 M/uL (4.7-6.1); White Blood Count 10.55 K/uL (4.8-10.8)
[2021-02-16 08:05] LABS: BUN Creatinine Ratio 26.3 (10-20); Calcium 8.9 mg/dl (8.5-10.1); Creatinine Clr Calc Pharmacy 63.3 ml/min; Est GFR (African American) 94.5 ml/min; Est GFR (Non-African American) 81.5 ml/min; Magnesium 2.2 mg/dl (1.8-2.4); Phosphorus 3.1 mg/dl (2.5-4.9); Potassium 4.6 mmol/L (3.5-5.1)
[2021-02-16 08:08] LABS: Basophils # (auto) 0.04 K/uL (0-0.2); Basophils % (auto) 0.4 %; Echinocytes 1+; Eosinophils # (auto) 0.49 K/uL (0-0.5); Eosinophils % (auto) 4.6 %; Immature Granulocytes # (auto) 0.54 K/uL (0.00-0.02); Immature Granulocytes % (auto) 5.1 %; Lymphocytes # (auto) 2.33 K/uL (1.2-3.4); Lymphocytes % (auto) 22.1 %; Monocytes # (auto) 1.13 K/uL (0.11-0.59); Monocytes % (auto) 10.7 %; Neutrophils # (auto) 6.02 K/uL (1.4-6.5); Neutrophils % (auto) 57.1 %; Polychromasia 1+
--- NOTE | 2021-02-16 08:29 | Surgery Progress Note ---
Date of Service February 16, 2021 Assessment & Plan (1) Colonic mass: Plan: continues to improve. will restart flomax and d/c lees later today d/c BRIAN drain need to ambulate/PT will slowly advance diet as he tolerates it. Admission and Anticipated Discharge Date Admission Date: February 04, 2021 Subjective pt oob in chair...having breakfast. looks much better. no nausea. +bm's x 3 overnight. no new complaints. minimal appetite. Physical Exam Physical Exam: alert. nad BRIAN scant/serous in chair eating...did not take down dressing today. Results & Data ([facility]) Vital Signs (Past 12 Hours) Vital Signs Temp Pulse Pulse Resp BP BP Pulse Ox 02/16/21 07:00 36.8 C 67 20 101/55 L 96 02/16/21 03:00 36.5 C 63 18 116/66 94 02/16/21 01:01 66 02/15/21 22:47 36.7 C 64 19 122/71 96 PG Care Time/CCT Total # of Minutes Spent Total Time Spent with Patient: Total time spent is greater than 50% in coordination of care (as documented) at patient's floor/unit and/or counseling patient: Coding Level of Care Code None Diagnoses Colonic mass K63.89
[2021-02-16] MEDS: ACETAMINOPHEN 1,000 MG/100 ML VIAL IV SCH ×2 (09:53→16:46)
[2021-02-16] MEDS: TAMSULOSIN HCL 0.4 MG CAP PO SCH (10:19)
[2021-02-16] MEDS: PANTOprazole 40 MG in SYRINGE 0 ML IV SCH (10:39)
[2021-02-16] MEDS: METOPROLOL SUCC 25MG EXT REL TAB PO SCH (16:47)
[2021-02-16] MEDS: ENOXAPARIN INJ 30 MG/0.3 ML SYR SQ SCH (17:33)
[2021-02-17] MEDS: ACETAMINOPHEN 1,000 MG/100 ML VIAL IV SCH ×2 (00:08→10:30)
[2021-02-17] MEDS: HYDROCODONE/ACETAMOPHEN 5/325MG TAB PO PRN ×3 (01:48→23:32)
[2021-02-17] MEDS: PIPERACILLIN/TAZOBACTAM 3.375 GM in DEXTROSE 5% 100 ML IV SCH ×3 (05:37→21:52)
--- NOTE | 2021-02-17 07:16 | Surgery Progress Note ---
Date of Service February 17, 2021 Assessment & Plan (1) History of colon resection: Plan: slowly improving will advance to low residue diet d/c planning..... ? rehab tomorrow or Monday..... discussed yesterday with daughter and they are on board with Rehab Admission and Anticipated Discharge Date Admission Date: February 04, 2021 Subjective pt seen. "tired". no new complaints. joseph full liquids. +bm and flatus. Physical Exam Constitutional: alert. appears tired. nad. abd: soft. wound looks good/no sign of infection. vesta in place Results & Data ([facility]) Vital Signs (Past 12 Hours) Vital Signs Temp Pulse Pulse Resp BP Pulse Ox 02/17/21 04:13 18 93 02/17/21 03:14 36.7 C 69 19 106/65 95 02/16/21 23:02 36.9 C 67 19 121/66 98 02/16/21 22:56 67 02/16/21 19:18 36.6 C 74 19 92/61 L 93 PG Care Time/CCT Total # of Minutes Spent Total Time Spent with Patient: Total time spent is greater than 50% in coordination of care (as documented) at patient's floor/unit and/or counseling patient: Coding Level of Care Code None Diagnoses History of colon resection Z90.49
[2021-02-17] MEDS: TAMSULOSIN HCL 0.4 MG CAP PO SCH (08:12)
[2021-02-17] MEDS: PANTOprazole 40 MG TAB PO SCH (08:12)
--- NOTE | 2021-02-17 16:08 | Hospitalist Progress Note ---
Date of Service February 17, 2021 Assessment & Plan (1) Intra-abdominal infection: Plan: Peritoneal culture during ex-lap on 02/11 grew Pseudomonas. No blood cultures done. - Continue Zosyn - Discussed with Georgie MARQUEZ on 02/17 -> Plan for 2 weeks of abx. Can switch to Cipro on discharge to avoid IV abx. End date: 02/24/2021. (2) Colonic mass: Plan: S/p open low anterior colon resection with Dr. Massey on 02/04. 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 No evidence of malignancy. S/p Ex-Lap with abdominal washout and fascial closure on 02/[address] Massey. - Post-op management per primary - Pain management, bowel regimen, PT/OT, DVT prophylaxis with Lovenox per primary service -> Having BMs today. NG tube out. Plan for rehab discharge soon. (3) Acute respiratory failure with hypoxia: Plan: Hypoxia in postoperative setting requiring 3 L nasal cannula with a history of COPD and no home oxygen requirement. - Unclear cause; likely some element of atelectasis vs iatrogenic hypervolemia. Wean O2 as able. (4) Aortic stenosis, moderate: Plan: , moderate without aortic regurgitation on ECHO from 06/03/20. - Monitor (5) Hypertension: Plan: BP controlled today at 130/75. - Continue metoprolol (6) PAD (peripheral artery disease): Plan: - Restarted ASA by primary service. 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 - COPD Hx. With no wheezing on exam and no home controller medications. - Continue with as needed Albuterol - May follow-up with pulm on outpt. - Pt will also require 6mo CT f/u for L hilar adenopathy. (10) Hyperlipidemia: Plan: - Continue atorvastatin (11) Lymphadenopathy, hilar: Plan: - F/u outpt with pulm for emphysema as above, repeat CT scan in ~6months (12) History of colon resection: Plan: Postop day 6 as above (13) Anemia: Plan: Normocytic. B12 within normal limits. Hemoglobin 9.7iron low at 18 above and ordered Venofer and will repeat tomorrow and complete 3 days if remains inpatient. - Monitor CBC (14) Iron deficiency: Plan: Low at 18supplementation above (15) Urinary retention: Plan: Mcgee placed on 02/07 evening for urinary retention has some blood-tinged urine in bag but no clotting. - Started on Flomax 0.4 mg daily on 02/08 by general surgery - Per surgery maintaining Mcgee at this time but will need to monitor for retention once discontinued--> d/c'd AM 02/10 and will need to monitor for retention (removed 1 hr prior to eval and nothing at that time) Given medical stability, Hospital Medicine team will sign off. Please re-consult with any questions or concerns. Thank you for letting us assist in the care of this patient! Admission and Anticipated Discharge Date Admission Date: February 04, 2021 Subjective Tired today, but not much abdominal pain. Reports no fevers/chills, chest pain, shortness of breath, abdominal pain, nausea, or vomiting. Physical Exam Constitutional: WD/WN, vitals as above Eyes: EOM intact bilaterally; no conjunctival abnormality ENMT: external ear and nose normal, oropharynx normal Neck: trachea midline, no thyromegaly normal visual inspection Respiratory: normal respiratory effort, lungs clear to auscultation no respiratory distress Cardiovascular: RRR, no murmur, no edema Gastrointestinal (Abdomen): Inspection/Auscultation: + abdominal surgical incision (Clean with vesta); + abdomen abnormal to inspection Musculoskeletal: no cyanosis or clubbing, extremities motor strength 5/5 Skin: no rashes, warm and dry Neurologic: moves all extremities and awake Psychiatric: Orientation: alert, oriented to person and cooperative Results & Data Results & Data ([facility]) Vital Signs (Past 12 Hours) Vital Signs Temp Pulse Pulse Pulse Resp BP Pulse Ox 02/17/21 15:10 36.9 C 68 17 103/62 94 02/17/21 14:24 92 02/17/21 11:14 36.4 C L 68 16 82/52 L 94 02/17/21 08:00 64 02/17/21 07:30 36.4 C L 64 19 87/51 L 95 02/17/21 04:13 18 93 PG Care Time/CCT Total # of Minutes Spent Total Time Spent with Patient: Total time spent is greater than 50% in coordination of care (as documented) at patient's floor/unit and/or counseling patient: Coding Level of Care Code 50237 Subseq Hosp Care Lvl 2 Diagnoses Colonic mass K63.89 Acute respiratory failure with hypoxia J96.01 Aortic stenosis, moderate I35.0 Hypertension I10 PAD (peripheral artery disease) I73.9 H/O carotid endarterectomy Z98.890 Osteoarthritis of left hip M16.12 Chronic obstructive pulmonary disease J44.9 Hyperlipidemia E78.5 Lymphadenopathy, hilar R59.0 History of colon resection Z90.49 Anemia D64.9 Iron deficiency E61.1 Urinary retention R33.9 Intra-abdominal infection B99.9
[2021-02-17] MEDS: METOPROLOL SUCC 25MG EXT REL TAB PO SCH (16:20)
[2021-02-17] MEDS: ENOXAPARIN INJ 30 MG/0.3 ML SYR SQ SCH (20:02)
[2021-02-18] MEDS: PIPERACILLIN/TAZOBACTAM 3.375 GM in DEXTROSE 5% 100 ML IV SCH ×3 (05:56→21:50)
--- NOTE | 2021-02-18 07:30 | Surgery Progress Note ---
Date of Service February 18, 2021 Assessment & Plan (1) Adenomatous colon polyp: Plan: "colon polyp requiring resection" doing ok. joseph diet. bowels moving. appreciate ID imput....cipro PO until feb 24 can go to [facility] today or tomorrow from my standpoint will remove vesta prior to d/c. Admission and Anticipated Discharge Date Admission Date: February 04, 2021 Subjective pt seen. in chair. still "tired" but no new complaints. still having loose BM's. joseph diet though poor appetite.. Physical Exam Physical Exam: alert. oriented. nad abd: soft. minimal drainage. vesta still in place Results & Data ([facility]) Vital Signs (Past 12 Hours) Vital Signs Temp Pulse Resp BP Pulse Ox 02/18/21 04:46 36.6 C 76 18 106/59 L 93 02/17/21 23:17 36.8 C 79 18 102/57 L 95 02/17/21 19:46 36.9 C 75 18 117/73 92 PG Care Time/CCT Total # of Minutes Spent Total Time Spent with Patient: Total time spent is greater than 50% in coordination of care (as documented) at patient's floor/unit and/or counseling patient: Coding Level of Care Code None Diagnoses Adenomatous colon polyp D12.6
[2021-02-18] MEDS: TAMSULOSIN HCL 0.4 MG CAP PO SCH (08:24)
[2021-02-18] MEDS: PANTOprazole 40 MG TAB PO SCH (08:24)
[2021-02-18] MEDS: METOPROLOL SUCC 25MG EXT REL TAB PO SCH (17:00)
[2021-02-18] MEDS: ENOXAPARIN INJ 30 MG/0.3 ML SYR SQ SCH (19:41)
[2021-02-19] MEDS: HYDROCODONE/ACETAMOPHEN 5/325MG TAB PO PRN (00:57)
[2021-02-19] MEDS: PIPERACILLIN/TAZOBACTAM 3.375 GM in DEXTROSE 5% 100 ML IV SCH (05:21)
--- NOTE | 2021-02-19 08:32 | Surgery Progress Note ---
Date of Service February 19, 2021 Assessment & Plan (1) Adenomatous colon polyp: Plan: seen with Dr. Bryson lemons removed OK for [facility] today f/u in clinic 1 week as above. continues to slowly improve ok for d/c to rehab today. f/u with me in 1 week. Admission and Anticipated Discharge Date Admission Date: February 04, 2021 Subjective ready for rehab, tolerating diet Physical Exam Gastrointestinal (Abdomen): Inspection/Auscultation: + abdominal surgical incision (no erythema); abdomen not distended Percussion/Palpation: abdomen soft Results & Data ([place]) Vital Signs (Past 12 Hours) Vital Signs Temp Pulse Resp BP BP Pulse Ox 02/19/21 08:02 36.5 C 63 19 100/64 97 02/19/21 03:10 36.5 C 65 20 98/61 L 93 02/18/21 23:09 36.7 C 72 20 100/56 L 93 PG Care Time/CCT Total # of Minutes Spent Total Time Spent with Patient: Total time spent is greater than 50% in coordination of care (as documented) at patient's floor/unit and/or counseling patient: Coding Level of Care Code None Diagnoses Adenomatous colon polyp D12.6
[2021-02-19] MEDS: PANTOprazole 40 MG TAB PO SCH (09:06)
[2021-02-19] MEDS: TAMSULOSIN HCL 0.4 MG CAP PO SCH (09:06)
--- NOTE | 2021-02-19 09:49 | Discharge Summary ---
Date of Service February 19, 2021 Principal Diagnosis Low anterior resection Wound dehiscence Urinary retention Discharge Exam Constitutional WD/WN, vitals as above Respiratory normal respiratory effort, lungs clear to auscultation Cardiovascular RRR, no murmur, no edema Gastrointestinal (Abdomen) Inspection/Auscultation: + abdominal surgical incision (no erythema, vesta drain removed 02/19) Discharge Data Allergies Allergy/AdvReac Type Severity Reaction Status Date / Time shellfish derived AdvReac Severe VIOLENT Verified 02/04/21 09:24 VOMITING alfuzosin AdvReac Intermediate DROPPED Verified 02/04/21 09:24 BLOOD PRESSURE Consultations 02/04/21 18:26 Consult Hospitalist Routine 02/16/21 15:51 Consult Infectious Diseases Routine Procedures Performed Operation Date: 02/04/21 10:25 Actual Procedures p Open Low Anterior Colon Resection - Arben Massey DO Operation Date: 02/11/21 11:00 Actual Procedures p Exploratory Laparotomy with Abdominal Washout and Fascial Closure(Not Applicable) - Arben Massey DO Ordered Studies 02/04/21 10:05 US - OR guided needle placemen Routine 02/10/21 23:38 CT abd pelvis IV con only Urgent 02/14/21 18:09 CT angio chest PE protocol Routine Hospital Course (1) Adenomatous colon polyp: 80 y/o male with rectal mass was taken to the OR for low anterior resection. He was transferred to PCU and hospitalist consulted routinely given his age, HTN, moderate aortic stenosis, and COPD. He was progressing as expected, although remained on full liquids when he began having increasing abdominal pain overnight POD 6. CT showed fascial dehiscence along with some fluid in the pelvis. He was taken back to the OR on POD 7 for exploration, wash- out, and closure. His anastomosis was intact, although abdominal cultures grew pseudomonas. Antibiotics were continued as recommended by ID. His bowel function was slow to return after the second procedure, he also had some urinary retention. NG tube was placed and TPN was initiated. On POD 4 NG was removed and he was able to tolerate and advancing diet over the next several days. He continued to require assistance and plans for rehab were made. BRIAN and vesta drains were removed. On POD 8 he was stable for transfer to [facility]. Total Time Total Time Spent Total Time Spent (In Minutes): 20 Discharge Plan Discharge Items Patient Disposition: Transfer Inpatient Rehab Fac Reason For Visit: Colon Mass Discharge Diagnosis: Low anterior resection Wound dehiscence Urinary retention Activity: As commented below Activity Comment: wear binder most of the time, can be removed limited time while in bed Lifting: No more than 10 pounds Bathing Comment: may shower Exercise/Sports: Gradually increase as tolerated Non-emergency contact: Surgeon Call non-emergency contact if: you have any medication questions, you have a fever and your temperature is above 101.5 Follow-up/Referrals: Arben Massey DO [Surgeon] - 02/26/21 9:15 am (Please make an appt in 1 week) Mami Kebede MD [Primary Care Provider] - 02/24/21 12:45 pm Diet: Low Fiber Addtl Attending Provider Instructions: Pending Studies at Discharge: No Stand-Alone Forms: [employer], Smoking Cessation Medications and DC Order Prescriptions: New hydrocodone-acetaminophen 5-325 mg Tablet 1 tab PO Q4H PRN (Reason: pain) 5 Days Qty: 10 RF: 0 tamsulosin 0.4 mg Capsule 0.4 mg PO QAM Qty: 30 RF: 0 metoprolol succinate 25 mg Tablet Extended Release 24 Hr 12.5 mg PO QDD Qty: 30 RF: 0 ciprofloxacin HCl [Cipro] 500 mg tablet 500 mg PO BID Qty: 10 RF: 0 Continued atorvastatin [Lipitor] 40 mg tablet 40 mg PO QDD RF: 0 albuterol sulfate [Ventolin HFA] 90 mcg/actuation HFA aerosol inhaler 2 puff inhalation Q6H PRN (Reason: Wheezing) RF: 0 nitroglycerin [Nitrostat] 0.4 mg tablet, sublingual 0.4 mg sublingual Q5M PRN (Reason: Chest Pain) RF: 0 pantoprazole [Protonix] [address] for susp in packet 40 mg PO DAILY Qty: 30 RF: 2 mirtazapine [Remeron] 15 mg tablet 15 mg PO HS RF: 0 aspirin 81 mg Tablet,Delayed Release (Dr/Ec) 81 mg PO QPM RF: 0 Discontinued metoprolol succinate [Toprol XL] 25 mg tablet extended release 24 hr 12.5 mg PO QDD RF: 0 Discharge Orders: Discharge Order (Routine); Ordered 02/19/21 Ordered By: Sergio Miramontes/Other Patient Handouts: Low-Fiber Diet Admission Data Admit Date/Time: 02/04/21 13:38 Attending Provider: Arben Massey Admit Provider: Arben Massey Primary Care Provider: Mami Kebede Other Providers: [facility] ; Aiden Mccann ; Shalom Cedeno ; Ezequiel Carreon ; Baltazar Santizo I. ; Kali Swann II ; Yesy Wisdom ; Trav Leon Other Interventions: Discharge Summary Assessment (RN) Last Done: 02/19/21 12:04 Coding Level of Care Code D/C DAY MANAGEMENT <30 MINS Diagnoses Adenomatous colon polyp D12.6
--- NOTE | 2021-03-01 08:24 | Coding Query ---
Your help is needed for correct coding of this account; please clarify if the patients Post-operative Ileus was: 02/14 PROGRESS NOTE.. ( x) expected out of the surgery ( ) unexpected complication from the surgery ( )other please specify Thank you RITCHIE Basurto CCS
== END 2021-02-19 13:08 | DRG 329 ==
LOC: ASU 08:45 → PACUINP 13:38 → SUATTDRO 13:38 → 2S 19:04 → 3N 02-07 06:29 → 2S 02-11 14:42

== ENCOUNTER 2021-10-08 07:03 | Observation (INO) ==
--- NOTE | 2021-09-14 12:55 | PAT Medication Instructions ---
Medication Instructions Date of Service September 14, 2021 Home Medications albuterol sulfate 90 mcg/actuation aerosol inhaler (Ventolin HFA) 2 puff INHALATION Q6H PRN atorvastatin 40 mg tablet (Lipitor) 40 mg PO QPM nitroglycerin 0.4 mg sublingual tablet (Nitrostat) 0.4 mg SUBLINGUAL Q5M PRN mirtazapine 15 mg tablet (Remeron) 15 mg PO HS aspirin 81 mg tablet,delayed release 81 mg PO QPM docusate sodium 100 mg capsule (Colace) 100 mg PO BID PreserVision AREDS 1 cap PO BID acetaminophen 500 mg tablet 1,000 mg PO Q6H PRN cholecalciferol (vitamin D3) 25 mcg (1,000 unit) chewable tablet (Vitamin D3) 25 mcg PO QAM metoprolol succinate 25 mg tablet,extended release 24 hr 12.5 mg PO QPM Continue as directed nitroglycerin 0.4 mg sublingual tablet (Nitrostat) 0.4 mg SUBLINGUAL Q5M PRN (if needed) STOP taking 2 weeks before surgery (or as soon as possible if surgery is within 2 weeks) PreserVision AREDS 1 cap PO BID DO NOT take the morning of surgery docusate sodium 100 mg capsule (Colace) 100 mg PO BID cholecalciferol (vitamin D3) 25 mcg (1,000 unit) chewable tablet (Vitamin D3) 25 mcg PO QAM Take morning of surgery With a small sip of water, OTHERWISE NOTHING TO EAT OR DRINK AFTER MIDNIGHT: albuterol sulfate 90 mcg/actuation aerosol inhaler (Ventolin HFA) 2 puff INHALATION Q6H PRN (use if needed; please bring rescue inhaler with you to hospital day of surgery if possible) acetaminophen 500 mg tablet 1,000 mg PO Q6H PRN (okay to take up to 4 hours prior to surgery if needed) Take evening before surgery albuterol sulfate 90 mcg/actuation aerosol inhaler (Ventolin HFA) 2 puff INHALATION Q6H PRN (if needed) atorvastatin 40 mg tablet (Lipitor) 40 mg PO QPM mirtazapine 15 mg tablet (Remeron) 15 mg PO HS aspirin 81 mg tablet,delayed release 81 mg PO QPM (continue as normal unless told otherwise by surgeon) docusate sodium 100 mg capsule (Colace) 100 mg PO BID acetaminophen 500 mg tablet 1,000 mg PO Q6H PRN (if needed) metoprolol succinate 25 mg tablet,extended release 24 hr 12.5 mg PO QPM Other Notes If you have any questions please call us at [phone] or [phone] or [phone] or [phone]
--- NOTE | 2021-09-15 13:32 | Anesthesiology Consultation ---
Date of Service September 15, 2021 Assessment & Plan (1) Encounter for pre-operative examination: - Awaiting most recent cardiology office visit note (Dr. Cortes) and upcoming echo (scheduled 10/01). - Vascular office visit (04/07/21): " Patient is asymptomatic from his left subclavian artery stenosis, although it is worth noting that the patient should have all blood pressures done in the right arm for accuracy purposes especially when evaluating for hypertension medication adjustments.. History of left carotid endarterectomy.. We recommend that this be reevaluated with an ultrasound in the next few weeks.. This to be reevaluated in a year along with his left subclavian artery with a new ultrasound at that time.. Patient appears to have phlebitis of the right lower extremity, and we had him undergo ultrasound evaluation in our office today which does not demonstrate any thrombus in the deep veins or superficial veins. We recommend that he continue with his compression stockings" > Carotid ultrasound done 04/29/21. No TERRENCE stenosis and patent left CEA with no evidence of restenosis. Did not left subclavian artery stenosis. - Pulmonary office visit (05/06/21): "The patient denies any significant respiratory symptoms at present and uses as needed albuterol. He likely has COPD Gold class A. We will hold on PFTs unless he has worsening of symptoms. As far as the left lower lobe lung nodule, we will follow Fleischner criteria and repeat a CT chest in 12 months from the the last ct chest to ensure stability. Hilar lymphadenopathy noted on the left on the CT chest from 02/01/2021 appears to have resolved on the latest scan." - COVID screening: Per assessment on 09/15: No known COVID-19 positive contacts or current COVID-19 related symptoms. Travel screen negative. Patient vaccinated. Surgeon arranging preop COVID testing. Awaiting results. - S/P Exploratory Laparotomy with Abdominal Washout and Fascial Closure (02/11/21): Grade 1 view, MAC#4, ETT 7.5 at [facility] - Left subclavian artery stenosis: Per vascular, recommendations for all BPs to be done in the right arm* - Aortic stenosis: Moderate per 06/04/20 Echo(YAW 1.09cm2; AV mean gradient= 15mmHg). Plan for updated Echo prior to surgery* Chart Review Chart Review: Patient seen in Pre Admission Testing Teaching & Discussion Pre-Anesthesia Teaching/Discussion Notes: Instructed NPO after midnight before surgery,except medications with 15 cc of water. Medication instructions provided according to the PAT guidelines. History Surgery Operation Date: 10/08/21 07:00 Proposed Procedures p Left Anterior Total Hip Arthroplasty - Manohar Tillman, Height/Weight Height: 5 ft 7 in Weight: 84.1 kg Allergies Allergy/AdvReac Type Severity Reaction Status Date / Time shellfish derived AdvReac Severe "Violent" Verified 09/14/21 09:56 vomiting alfuzosin AdvReac Intermediate BP dropped Verified 09/14/21 09:56 Medications Home Medications Medication Instructions Recorded Confirmed Last Taken albuterol sulfate 90 mcg/actuation 2 puff INHALATION Q6H PRN g 12/04/20 09/14/21 Unknown aerosol inhaler (Ventolin HFA) atorvastatin 40 mg tablet (Lipitor) 40 mg PO QPM 12/04/20 09/14/21 02/03/21 17:00 nitroglycerin 0.4 mg sublingual 0.4 mg SUBLINGUAL Q5M PRN 12/04/20 09/14/21 Unknown tablet (Nitrostat) mirtazapine 15 mg tablet (Remeron) 15 mg PO HS 12/23/20 09/14/21 02/03/21 21:00 aspirin 81 mg tablet,delayed 81 mg PO QPM 02/01/21 09/14/21 02/03/21 17:00 release docusate sodium 100 mg capsule 100 mg PO BID cap 05/06/21 09/14/21 Unknown (Colace) vitamins A,C,M-eakd-nifhhr 14,320 1 cap PO BID cap 05/06/21 09/14/21 Unknown unit-226 mg-200 unit capsule (PreserVision AREDS) acetaminophen 500 mg tablet 1,000 mg PO Q6H PRN 09/14/21 09/14/21 Unknown cholecalciferol (vitamin D3) 25 25 mcg PO QAM 09/14/21 09/14/21 Unknown mcg (1,000 unit) chewable tablet (Vitamin D3) metoprolol succinate 25 mg 12.5 mg PO QPM 09/14/21 09/14/21 Unknown tablet,extended release 24 hr Past Medical History Medical History Aneurysm of MCA Anxiety Aortic stenosis Moderate per 06/04/20 ECHO Arthritis Atrial fibrillation Single episode, Follows Dr. Cortes- was previously on pradaxa (discontinued after GIB 12/2020) CAD (coronary artery disease) Mild to moderate nonobstructive CAD per 2017 cardiac cath Chronic obstructive pulmonary disease Depression Enlarged prostate History of GI bleed recent 01/10/21 Hypertension Lung nodule Under surveillance by [facility] pulmonary Mass of colon S/P GIB/bowel resection 01/2021 PAD (peripheral artery disease) S/p CEA (left side-2017) > Follows with vascular (Dr. 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 TIA (transient ischemic attack) 2011 Exercise / Class Metabolic Activity III < 4 Walking/Shop/Light housework (uses cane PRN) Past Family History Family History Brother Family history of diabetes mellitus Cancer Diabetes Aunt Breast cancer Father Heart disease Other No family history of adverse response to anesthesia Denies family history of Lung disease Asthma Past Surgical History Surgical History Carotid artery disorder Left CEA ([facility] [place]) H/O exploratory laparotomy Exploratory Laparotomy with Abdominal Washout and Fascial Closure (02/11/21): Grade 1 view, MAC#4, ETT 7.5 at [facility] History of adenoidectomy History of anesthesia reaction Hypotension with colonoscopy (one episode) History of appendectomy History of bowel resection 02/05/2021 History of cardiac cath x3 (2011, 2013, 2016) > no stents History of cataract surgery R/L History of colonoscopy x3 History of esophagogastroduodenoscopy (EGD) History of herniorrhaphy R/L INGUINAL History of loop recorder PLACED 2019/PRESENT History of tonsillectomy Past Anesthesia History No Family Hx of Anesthesia Complications and Other (Hypotension x1 episode with colonoscopy) History of PONV No Hx of PONV and Hx of Motion Sickness Social History Smoking Status: Former smoker tobacco type: cigarettes and smokeless tobacco Do You Dip or Chew Tobacco: No (Former) Smoking End Date: Quit 2019 Hx Alcohol Use: No Alcohol type: wine alcohol intake frequency: holidays/special occasions only Hx Substance Use: No substance use type: does not use Review of Systems Patient denies chest pain, shortness of breath, fever, chills, cough, wheezing, palpitations. Physical Exam Vital Signs VITALS BP 163/69 P 69 TEMP 98.0 SP02 95%RA RESP 16 PHYSICAL Mildly decreased cervical extension range of motion. Full TMJ range of motion. TMD 4 finger breaths Mallampati Score 1 Dentition: edentulous Lungs: clear throughout to auscultation Cardiac: regular rate and rhythm, II/ systolic murmur Spine: normal Carotid arteries: negative bruit Extremities: no edema Short neck Lab Results Anesthesia Preop Results Results Anesthesia Widget: WBC 8.43 K/uL (4.8-10.8) 09/15/21 Hgb 14.4 g/dL (14.0-18.0) 09/15/21 Hct 42.5 % (42-52) 09/15/21 Plt 233 K/uL (130-400) 09/15/21 Na 138 mmol/L (136-145) 09/15/21 K 4.0 mmol/L (3.5-5.1) 09/15/21 Cl 103 mmol/L (98-107) 09/15/21 CO2 28 mmol/L (21-32) 09/15/21 BUN 14 mg/dl (6-23) 09/15/21 Creat 0.93 mg/dl (0.6-1.4) 09/15/21 Glucose Level 98 mg/dl (70-99(Fasting)) 09/15/21 PT 10.6 Seconds (9.0-12.0) 09/15/21 PTT 26.4 Seconds (21.0-31.0) 09/15/21 INR 1.0 (0.9-1.1) 09/15/21 Blood Type O Negative 09/15/21 Antibody Screen NEGATIVE 09/15/21 Testing Electrocardiogram Date: 09/09/21 This rhythm at 64 bpm. Possible high lateral infarct. RBBB. Echo scheduled for 10/01/21* Chest X-Ray Date: 02/14/21 FINDINGS: 2 AP, portable, upright chest radiographs are compared to study dated 02/12/2021. The examination is degraded by portable technique and patient rotation. A right PICC line is unchanged in position. The heart is top normal for projection noting atherosclerotic calcification of the thoracic aorta. There is elevation of the right hemidiaphragm with bibasilar atelectasis. Suspect trace pleural effusions. No airspace consolidation is seen typical for pneumonia. No pneumothorax is seen. The skeletal structures are osteopenic. The bony thorax is grossly intact. IMPRESSION: Suspect small pleural effusions. There is no airspace consolidation typical for pneumonia. Echocardiogram Date: 06/04/20 EF: 60% LV Function: normal Valvular Disease: + MR (mild ) LA mildly dilated. Moderate aortic stenosis.(YAW 1.09cm2; AV mean gradient= 15mmHg) Cardiac Catheterization Date: 09/27/16 LM= no angiographically evident of disease LAD= 40-50% ostial lesion; <30% to pLAD; mid LAD 30%; D2 50% stenosis; dLAD <30% stenosis. (LAD and branches similar to previous cardiac catheterizations) Cx= Cx and its branches appear angiographically similar to prior catheterization RCA= 30-40% to mid RCA; 40% distal narrowing (similar to previous cardiac catheterization) Impression: Mild to moderate nonocclusive coronary disease. No angiographic change from prior catheterization Continue with medical therapy recommended Other Testing Carotid doppler (04/29/21) Complex, calcified plaque in the bulb and right ICA. No hemodynamically significant stenosis in the right ICA. Patent left carotid endarterectomy with no evidence of restenosis. Antegrade right vertebral artery flow. Oscillating flow in the left vertebral artery suggesting steal phenomenon. 50-69% right subclavian artery stenosis. Elevated flow velocities and poststenotic turbulence in the proximal left subclavian artery suggesting significant stenosis. 20 mmHg difference in brachial pressure (R > L).
[~2021-10-08 07:03] MED LIST changes: +ACETAMINOPHEN 500 MG TAB PO SCH; +BUPIVACAINE 0.5 % 5 MG/1 ML PF 10ML VIAL ONE; +FAMOTIDINE 20 MG TAB PO SCH; +GABAPENTIN 300 MG CAP PO SCH; -HEPARIN SOD 5,000 UNIT/0.5 ML VIAL SQ SCH; +Ketorolac (*for OR use only*) 30 MG, dexAMETHasone 4 MG, KETAMINE HCL (**OR use only) 1... INFIL SCH; +LR 60ML/HR IV SCH; +TRANEXAMIC ACID 1,000 MG **IV Intra-op IV SCH; +TRANEXAMIC ACID 1,000 MG **IV Pre-op IV SCH; +ceFAZolin 2000MG 2,000 MG/15 ML SYR IV SCH; +dexAMETHasone 4 MG TAB PO SCH
[2021-10-08] MEDS ORDERED: ROCURONIUM BROMIDE 10 MG/ML 5 ML VIAL IV ONE (08:00)
[2021-10-08] MEDS ORDERED: fentaNYL citrate 100 MCG/2 ML VIAL ONE (08:00)
[2021-10-08] MEDS ORDERED: LIDOCAINE 2% 2 ML VIAL/AMP(20MG/ML) INFIL ONE (08:00)
[2021-10-08] MEDS ORDERED: PROPOFOL IV EMULSION 10 MG/ML 20 ML VIAL IV ONE (08:00)
--- NOTE | 2021-10-08 08:06 | History & Physical Bridge Note ---
Date of Service October 08, 2021 History & Physical Bridge Note I have examined the patient, reviewed the History & Physical and in the interval since the performance of the History & Physical I have noted the following changes of clinical significance: no changes noted
[2021-10-08] MEDS ORDERED: ORTHO JOINT ANESTHETIC ONE (09:15)
[2021-10-08] MEDS ORDERED: fentaNYL citrate 100 MCG/2 ML VIAL IV PRN (09:18)
[2021-10-08] MEDS ORDERED: ATROPINE SULFATE 0.1 MG/ML 10ML SYR IV PRN (09:18)
[2021-10-08] MEDS ORDERED: ONDANSETRON INJ 2 MG/ML 2 ML VIAL IV PRN ×2 (09:18→15:07)
[2021-10-08] MEDS ORDERED: HYDROmorphone INJ 2 MG/ML SYR/VIAL IV PRN (09:18)
[2021-10-08] MEDS ORDERED: ePHEDrine sulfate 50 MG/ML AMP IV PRN (09:18)
[2021-10-08] MEDS ORDERED: DEXAMETHASONE SOD INJ 4 MG/ML VIAL ONE (09:26)
[2021-10-08] MEDS ORDERED: ONDANSETRON INJ 2 MG/ML 2 ML VIAL ONE (09:26)
[2021-10-08] MEDS ORDERED: GLYCOPYRROLATE 0.2 MG/ML VIAL ONE (09:32)
[2021-10-08] MEDS ORDERED: NEOSTIGMINE METHYLSULFATE 1 MG/ML 10ML VIAL ONE (09:33)
--- NOTE | 2021-10-08 10:13 | Operative Report ---
PG Post Operative Report Pre & Post Diagnosis Operation Date: 10/08/21 09:20 Pre-Op Diagnosis: Left hip osteoarthritis Post-Op Diagnosis: Left hip osteoarthritis I identified the patient and participated in the time-out.: Yes Procedure Operation Date: 10/08/21 09:20 Actual Procedures p Left Anterior Total Hip Arthroplasty(Left) - Manohar Tillman DO Surgeon Manohar Tillman DO Interventional Sale Consultant Manohar Strickland PAC Estimated Blood Loss 200 Findings Consistent with Post-Op Diagnosis Specimens Left femoral head Complications none Disposition Disposition: Recovery Room Indications Andrzej is a pleasant 81-year-old male who is been doing chronic increasing left hip pain. X-rays and clinical examination are diagnostic for advanced arthritis of the left hip. After failing conservative treatment, he elected proceed with a left total hip arthroplasty. Description of Procedure Implants used I used a [employer]immer[employer] total hip arthroplasty system with a size 4 high offset Avenir Complete stem, a 54mm G7 cup with a 25mm screw, an E1 polyethylene liner, a 40mm ceramic head with a 0 neck. Andrzej arrived at the hospital for the above procedure. He was seen in the preoperative holding area and the operative extremity was identified and signed. He was given a preoperative antibiotic, and TXA. He was then taken back to the operating room and laid on the table in the supine position. He was given general anesthesia. The operative leg was secured to a Puristst leg positioner. The hip was then prepped and draped in sterile fashion. A timeout was done and the patient and the operative extremity was properly identified. An anterior approach was used. Dissection was taken down through the fascia and the tensor muscle belly was retracted laterally and the rectus was retracted medially. The circumflex vessels were identified and ligated. The capsule was then incised and tagged for later repair. The femoral neck was then cut and the femoral head was removed. The acetabulum was exposed. Time was spent doing a complete circumferential labral release. Sequential reaming of the acetabulum up to a size 53reamer was done. Final reamings were done under fluoroscopy to ensure appropriate version. A Biomet 54mm G7 cup was then impacted into place. A single 25 mm screw was placed. The E1 polyethylene liner was then snapped into place. Surrounding soft tissues were then injected with 100 cc of an orthopedic pain control cocktail. The proximal femur was then exposed. Sequential broaching up to a size 4 broach was done. Off that broach a size 40 head with a 0 neck was trialed. The hip was reduced and fluoroscopic images showed anatomic alignment of the implants in acceptable length. The broach was removed. The final size 4 high offset Avenir Complete stem was then impacted into place. A ceramic 40mm head with a 0 neck was then impacted onto the stem and the hip was reduced. Final fluoroscopic images showed anatomic alignment of the hip. The capsule was then closed with #1 Vicryl suture. A dilute betadyne lavage was then done for 3 minutes. The joint was then irrigated with normal saline solution. The fascia was closed with #1 PDS suture. Skin was closed with 2-0 Vicryl, [place], and a Silverlon dressing. He was then transferred to a hospital bed and taken to the post anesthesia care unit in stable condition. He tolerated the procedure well. Manohar Strickland PA-C, was present for the entire procedure. He was critical for patient positioning, prepping, draping, retraction exposure, wound closure and application of sterile dressing. I attest to the content of the Intraoperative Record and any orders documented therein. Any exceptions are noted below.
--- NOTE | 2021-10-08 10:48 | Fluoroscopy Report ---
FL hip LT 1V HISTORY: 81 years-old Male LT ANTERIOR left hip total joint arthroplasty COMPARISON: Pelvis and hip radiographs 09/16/2011 TECHNIQUE: One spot fluoroscopic images of the left hip was obtained utilizing 17.5 seconds fluorosco py time FINDINGS: Left hip total joint arthroplasty appears to be in satisfactory positioning. No acute fracture or une xpected opaque foreign body. Expected postoperative soft tissue swelling with deep tissue air. IMPRESSION: Fluoroscopic assistance as above. ACT 112: Negative or not required by law. The above report was generated using voice recognition software. It may contain grammatical, syntax o r spelling errors. Electronically signed by: Darin Gaytan M.D. 10/08/2021 10:46 AM
--- NOTE | 2021-10-08 11:13 | XRay Report ---
AP PELVIS, CROSSTABLE LATERAL LEFT HIP History: Left total hip arthroplasty. Degenerative arthritis. Postop. FINDINGS: The patient is status post a left total hip arthroplasty. The hardware is intact. No fractu re or dislocation. Skin [place] are in place. IMPRESSION: Left total hip arthroplasty. No evidence for hardware complication. ACT 112: Negative or not required by law. Electronically signed by: Apolinar Montano M.D. 10/08/2021 11:12 AM
--- NOTE | 2021-10-08 12:11 | Anesthesiology Progress Note ---
Date of Service October 08, 2021 Anesthesia Post Procedure Vital Signs Vital Signs: Temp Pulse Pulse Resp BP Pulse Ox 10/08/21 12:00 47 L 16 110/57 L 93 10/08/21 11:45 36.1 C L 60 14 113/46 L 93 10/08/21 11:35 40 L 12 113/39 L 95 10/08/21 11:25 36.3 C L 48 L 16 114/48 L 95 10/08/21 11:15 54 L 16 113/50 L 95 10/08/21 11:05 50 L 16 129/48 L 94 10/08/21 10:55 50 L 16 116/53 L 93 10/08/21 10:45 57 L 18 131/59 L 91 10/08/21 10:35 36.1 C L 65 18 130/58 L 90 10/08/21 07:30 36.8 C 59 L 22 164/75 H 98 Pain Intensity Left Hip: Pain Intensity: 6 Transfer of Care Handoff Completed per policy Notes Mental Status: alert / awake / arousable and participated in evaluation Patient Amnestic to Procedure: Yes Nausea / Vomiting: adequately controlled Pain: adequately controlled Airway Patency, RR, SpO2: stable & adequate BP & HR: stable & adequate Hydration State: stable & adequate Anesthetic Complications: no major complications apparent and Pt Satisfied with anesthetic care Notes: pt bradycardic at baseline. pt mentating well
[2021-10-08] MEDS ORDERED: NALOXONE HCL 0.4 MG/1 ML VIAL/CARP IV PRN (15:07)
[2021-10-08] MEDS ORDERED: bisacodyL 10 MG SUPP PR PRN (15:07)
[2021-10-08] MEDS ORDERED: NITROGLYCERIN SL 0.4 MG/TAB TAB SL PRN (15:07)
[2021-10-08] MEDS ORDERED: ALBUTEROL HFA 8 GM INHALER INH PRN (15:07)
[2021-10-08] MEDS ORDERED: HYDROmorphone INJ 0.5 MG/0.5 ML SYR IV PRN (15:07)
[2021-10-08] MEDS ORDERED: METOCLOPRAMIDE HCL INJ 5 MG/ML 2 ML VIAL IV PRN (15:07)
[2021-10-08] MEDS ORDERED: MAGNESIUM HYDROXIDE SUSP 30 ML UDC PO PRN (15:07)
[2021-10-08] MEDS: SODIUM CHLORIDE 0.9% 1000ML 1,000 ML IV SCH (15:46)
[2021-10-08] MEDS: ACETAMINOPHEN 500 MG TAB PO SCH ×2 (15:46→20:51)
[2021-10-08] MEDS: oxyCODONE HCL IR 5 MG TAB (IMMEDIATE RELEASE) PO PRN (15:51)
[2021-10-08] MEDS: ceFAZolin 2000MG 2,000 MG/15 ML SYR IV SCH (18:07)
[2021-10-08] MEDS: ASPIRIN 81 MG ECTAB PO SCH (20:48)
[2021-10-08] MEDS: DOCUSATE SODIUM 100 MG CAP PO SCH (20:49)
[2021-10-08] MEDS: ATORVASTATIN 40 MG TAB PO SCH (20:49)
[2021-10-08] MEDS: METOPROLOL SUCC 25MG EXT REL TAB PO SCH (20:50)
[2021-10-08] MEDS: SENNA 8.6 MG TAB PO SCH (20:51)
[2021-10-08] MEDS ORDERED: MIRTAZAPINE TAB 15 MG TAB PO SCH (21:00)
[2021-10-09] MEDS: ceFAZolin 2000MG 2,000 MG/15 ML SYR IV SCH (00:59)
[2021-10-09] MEDS: SODIUM CHLORIDE 0.9% 1000ML 1,000 ML IV SCH (02:23)
[2021-10-09] MEDS: ACETAMINOPHEN 500 MG TAB PO SCH ×3 (05:03→21:00)
[2021-10-09] MEDS ORDERED: LACTATED RINGER'S 1,000 ML IV SCH (06:00)
--- NOTE | 2021-10-09 06:06 | Consultation ---
Date of Consultation October 09, 2021 Assessment & Plan (1) Bradycardia: 81yo male s/p left hip SRAVANI performed yesterday by Dr. Tillman with 3.2 second pause noted on telemetry. Patient is asymptomatic, HD stable and non toxic in appearance. He is on Metoprolol 12.5mg po BID which was held last evening. Pause possibly secondary to anesthesia effects. -Continue to monitor -Continue Metoprolol with holding parameters - do not administer if additional sinus pauses or HR <65 -Continue gentle hydration - LR at 100mL/hr x 1 liter -Check BMP, Mg and PO4 to assess renal clearance, electrolytes (2) Status post left hip replacement: Patient overall doing well. Pain well controlled -Continue pain control, anti-emetics and bowel regimen per primary team -PT/OT and discharge planning per primary team (3) Hypertension: Blood pressure well controlled -Continue metoprolol with holding parameters -Monitor (4) PAD (peripheral artery disease): Chronic. -Continue ASA 81mg po daily when ok with surgery, Atorvastatin 40mg po daily (5) Atrial fibrillation: Paroxysmal. No recurrence for years. Patient presently in NSR -Continue Metoprolol -Not on anticoagulation- history of Coburn aneurysm (6) CAD (coronary artery disease): Chronic. Stable -Continue ASA, Atorvastatin, Metoprolol (7) Chronic obstructive pulmonary disease: No cough, SOB or wheeze. Patient does not use inhalers -Continue to monitor (8) Enlarged prostate: Continue gentle IVF, monitor I/Os, bladder scan as needed. Patient reports occasional difficulty passing urine. May need Mcgee? History of Present Illness Reason for Consultation: Sinus pause 3.2 seconds Attending Physician: Manohar Tillman, DO History of Present Illness We have been asked to see Mr. Degroot for sinus pause of 3.2 seconds noted on telemetry monitoring. Patient is a pleasant 81yo male with history of moderate , AF, CAD, COPD, HTN s/p L SRAVANI performed yesterday by Dr. Tillman. Surgery was well tolerated with no immediate complications identified. Patient was bradycardic during the case with HR ranging from 47-65. He denies complaints - specifically denies chest pain, palpitations, cough, SOB, dizziness. He reports his pain is well controlled. Nursing reports decreased UOP. Patient continues to receive NSS at 100ml/hr. Bladder scan with appx 200mL post-void residual volume. Patient is on Metoprolol 12.5mg po qHS which was held last night. Allergies Allergy/AdvReac Type Severity Reaction Status Date / Time shellfish derived AdvReac Severe "Violent" Verified 10/08/21 07:27 vomiting alfuzosin AdvReac Intermediate BP dropped Verified 10/08/21 07:27 Home Medications Medication Instructions Recorded Confirmed Type albuterol sulfate 90 mcg/actuation 2 puff INHALATION Q6H PRN g 12/04/20 10/08/21 History aerosol inhaler (Ventolin HFA) atorvastatin 40 mg tablet (Lipitor) 40 mg PO QPM 12/04/20 10/08/21 History nitroglycerin 0.4 mg sublingual 0.4 mg SUBLINGUAL Q5M PRN 12/04/20 10/08/21 History tablet (Nitrostat) mirtazapine 15 mg tablet (Remeron) 15 mg PO HS 12/23/20 10/08/21 History aspirin 81 mg tablet,delayed 81 mg PO QPM 02/01/21 10/08/21 History release docusate sodium 100 mg capsule 100 mg PO BID cap 05/06/21 10/08/21 History (Colace) vitamins A,C,D-uvfo-talojv 14,320 1 cap PO BID cap 05/06/21 10/08/21 History unit-226 mg-200 unit capsule (PreserVision AREDS) acetaminophen 500 mg tablet 1,000 mg PO Q6H PRN 09/14/21 10/08/21 History cholecalciferol (vitamin D3) 25 25 mcg PO QAM 09/14/21 10/08/21 History mcg (1,000 unit) chewable tablet (Vitamin D3) metoprolol succinate 25 mg 12.5 mg PO QPM 09/14/21 10/08/21 History tablet,extended release 24 hr Patient History Medical History (Updated 10/09/21 @ 06:05 by Juliane Santizo DO) Aneurysm of MCA Anxiety Aortic stenosis Moderate per 06/04/20 ECHO Arthritis Atrial fibrillation Single episode, Follows Dr. Cortes- was previously on pradaxa (discontinued after GIB 12/2020) CAD (coronary artery disease) Mild to moderate nonobstructive CAD per 2017 cardiac cath Chronic obstructive pulmonary disease Depression Enlarged prostate History of GI bleed recent 01/10/21 Hypertension Lung nodule Under surveillance by [facility] pulmonary Mass of colon S/P GIB/bowel resection 01/2021 PAD (peripheral artery disease) S/p CEA (left side-2017) > Follows with vascular (Dr. 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 steal syndrome of left subclavian artery TIA (transient ischemic attack) 2011 Surgical History (Updated 10/08/21 @ 10:11 by Manohar Tillman DO) Carotid artery disorder Left CEA ([facility] [place]) H/O exploratory laparotomy Exploratory Laparotomy with Abdominal Washout and Fascial Closure (02/11/21): Grade 1 view, MAC#4, ETT 7.5 at [facility] History of adenoidectomy History of anesthesia reaction Hypotension with colonoscopy (one episode) History of appendectomy History of bowel resection 02/05/2021 History of cardiac cath x3 (2011, 2013, 2016) > no stents History of cataract surgery R/L History of colonoscopy x3 History of esophagogastroduodenoscopy (EGD) History of herniorrhaphy R/L INGUINAL History of loop recorder PLACED 2019/PRESENT History of tonsillectomy Family History Brother Family history of diabetes mellitus Cancer Diabetes Aunt Breast cancer Father Heart disease Other No family history of adverse response to anesthesia Denies family history of Lung disease Asthma Social History Smoking Status: Former smoker Tobacco Type: Cigarettes packs per day: 1; Years Smoked: 50; Smoking End Date: 2019; Second Hand Exposure: No; Do You Dip or Chew Tobacco: No (Former); Hx Alcohol Use: No Hx Substance Use: No Preferred Language: Urdu Communication Ability: Effective Defense Analyst Required: No Beliefs That Will Affect Care: None marital status: Current Living Situation: Spouse current occupational status: retired How many Children do You have: 3 Other Information That Helps Us Care for You: No Feels Safe at Home: Yes Safety Concerns: Feels Safe At This Time Assistive Devices: Cane, Denture - Upper and Glasses Review of Systems Review of Systems: All systems reviewed & are unremarkable except as noted in HPI & below Physical Exam Physical Exam: General: patient resting comfortably, NAD, non-toxic in appearance, AA&O to person and place with some confusion of date Skin: warm, dry, dressing on left hip c/d/i HEENT: NC/AT, PERRL, EOMI, anicteric sclera, conjunctiva without injection, external ear normal to inspection and nontender, nares patent, moist mucus membranes, dentition intact, no oropharyngeal lesions, neck supple, trachea midline, no LAD, no thyromegaly, no JVD Heart: +S1/S2, regular, 3/6 DAVIN across precordium Lungs: equal air entry bilaterally, no rales/rhonchi/wheezes Abd: +BS, soft, NT/ND, no masses/organomegaly/ascites Ext: warm, 2+ pulses in UE/LE bilaterally, no clubbing/cyanosis or edema Neuro: nonfocal, patient AA&O to person and place, speech intact, no facial droop, moving all extremities on command with equal strength 5/5 Results & Data ([facility]) Vital Signs (Past 12 Hours) Vital Signs Temp Pulse Pulse Resp BP Pulse Ox 10/09/21 03:48 36.6 C 64 18 112/61 93 10/08/21 23:16 53 L 10/08/21 23:00 91 10/08/21 22:00 36.7 C 60 18 108/63 91 10/08/21 21:00 58 L 98/53 L 10/08/21 19:14 36.6 C 61 18 99/52 L 95 Laboratory Results Laboratory Results SARS-CoV-2, RNA, NAAT NEGATIVE (NEGATIVE) 10/08/21 07:01 Impressions Hip X-Ray 10/08/21 09:20 FL hip LT 1V HISTORY: 81 years-old Male LT ANTERIOR left hip total joint arthroplasty COMPARISON: Pelvis and hip radiographs 09/16/2011 TECHNIQUE: One spot fluoroscopic images of the left hip was obtained utilizing 17.5 seconds fluoroscopy time FINDINGS: Left hip total joint arthroplasty appears to be in satisfactory positioning. No acute fracture or unexpected opaque foreign body. Expected postoperative soft tissue swelling with deep tissue air. IMPRESSION: Fluoroscopic assistance as above. ACT 112: Negative or not required by law. The above report was generated using voice recognition software. It may contain grammatical, syntax or spelling errors. Electronically signed by: Darin Gaytan M.D. 10/08/2021 10:46 AM Hip/Pelvis X-Ray 10/08/21 10:36 AP PELVIS, CROSSTABLE LATERAL LEFT HIP History: Left total hip arthroplasty. Degenerative arthritis. Postop. FINDINGS: The patient is status post a left total hip arthroplasty. The hardware is intact. No fracture or dislocation. Skin [place] are in place. IMPRESSION: Left total hip arthroplasty. No evidence for hardware complication. ACT 112: Negative or not required by law. Electronically signed by: Apolinar Montano M.D. 10/08/2021 11:12 AM ECG Additional Comments: EKG with NSR, RBBB, no acute ischemic changes PG Care Time/CCT Total # of Minutes Spent Total Time Spent with Patient: Total time spent is greater than 50% in coordination of care (as documented) at patient's floor/unit and/or counseling patient: Coding Level of Care Code 23825 Initial Inpt Care Lvl 3 Diagnoses Status post left hip replacement Z96.642 Bradycardia R00.1 Hypertension I10 PAD (peripheral artery disease) I73.9 Atrial fibrillation I48.91 CAD (coronary artery disease) I25.10 Chronic obstructive pulmonary disease J44.9 Enlarged prostate N40.0
--- NOTE | 2021-10-09 07:00 | Orthopedic Progress Note ---
Date of Service October 09, 2021 Assessment & Plan (1) Status post left hip replacement: Overall he is doing fairly well. He is not having too much pain in his left hip. He will be seen by physical therapy today for ambulation and range of motion exercises. He will also be seen by the hospitalist and we will try to wean him off the oxygen. I think it is best we keep him in the hospital throughout the day today. We will plan to discharge him to home tomorrow if it is okay with the medical service. Bryn Donnelly was seen and examined at bedside this morning. Overall is doing fairly well. He is not having too much pain in his left hip. He has not been up and ambulating yet. He had a small cardiac episode last night and the hospitalist was consulted. He is currently on 4 L of oxygen. Review of Systems All systems reviewed & are unremarkable except as noted in HPI & below. Physical Exam On physical examination of the left hip, the dressing is clean and dry. His leg lengths are equal. He is active dorsiflexion and plantarflexion of his left ankle. . Results & Data Results & Data Laboratory Results . Diagnostic Findings Postoperative x-rays of the left hip show the prosthesis to be in anatomic alignment without any evidence of fracture, dislocation, or loosening . PG Care Time/CCT Total # of Minutes Spent Total Time Spent with Patient: Total time spent is greater than 50% in coordination of care (as documented) at patient's floor/unit and/or counseling patient: Coding Level of Care Code 49545 Post Operative Follow-Up Diagnoses Status post left hip replacement Z96.642
[2021-10-09 07:16] LABS: BUN Creatinine Ratio 17.8 (10-20); Calcium 8.1 mg/dl (8.5-10.1); Creatinine Clr Calc Pharmacy 50.5 ml/min; Est GFR (African American) 66.7 ml/min; Est GFR (Non-African American) 57.5 ml/min; Phosphorus 3.5 mg/dl (2.5-4.9); Potassium 4.2 mmol/L (3.5-5.1)
[2021-10-09] MEDS ORDERED: dexAMETHasone 4 MG TAB PO SCH (08:00)
[2021-10-09] MEDS: DOCUSATE SODIUM 100 MG CAP PO SCH ×2 (08:12→21:01)
[2021-10-09] MEDS: MULTIVITAMIN TAB PO SCH (08:12)
[2021-10-09] MEDS: ASPIRIN 81 MG ECTAB PO SCH ×2 (08:12→21:01)
--- NOTE | 2021-10-09 09:03 | XRay Report ---
XR chest 1V portable CLINICAL HISTORY: post-op on oxygen COMPARISON STUDY: Chest radiograph and chest CT February 14, 2021. FINDINGS: Electronic device projects over the left chest. Cardiomediastinal silhouette is stable. The re is no evidence for pulmonary edema. There is no pneumothorax or pleural effusion. Mild elevation/e ventration right hemidiaphragm is unchanged. Minimal left basilar opacity favors atelectasis. IMPRESSION: No acute cardiopulmonary findings. No significant change in appearance of the chest. ACT 112: Negative or not required by law. Electronically signed by: Keith Franco M.D. 10/09/2021 9:01 AM
[2021-10-09] MEDS ORDERED: FUROSEMIDE INJ 20 MG/2 ML VIAL IV ONE (09:12)
[2021-10-09 09:13] LABS: Hematocrit (blood only) 36.6 % (42-52); Hemoglobin 12.2 g/dL (14.0-18.0); Immature Granulocytes # (auto) 0.04 K/uL (0.00-0.02); Immature Granulocytes % (auto) 0.3 %; Lymphocytes # (auto) 1.64 K/uL (1.2-3.4); Lymphocytes % (auto) 12.9 %; Mean Corpuscular Hemoglobin 29.8 pg (25-34); Mean Corpuscular Hgb Conc 33.3 g/dL (32-36); Mean Corpuscular Volume 89.3 fL (80-100); Mean Platelet Volume 10.5 fL (7.4-10.4); Monocytes # (auto) 1.18 K/uL (0.11-0.59); Monocytes % (auto) 9.3 %; Neutrophils # (auto) 9.82 K/uL (1.4-6.5); Neutrophils % (auto) 77.5 %; Platelet Count 229 K/uL (130-400); RDW Coefficient of Variation 13.8 % (11.5-14.5); RDW Standard Deviation 45.3 fL (36.4-46.3); White Blood Count 12.68 K/uL (4.8-10.8)
[2021-10-09] MEDS: oxyCODONE HCL IR 5 MG TAB (IMMEDIATE RELEASE) PO PRN ×3 (11:04→21:00)
[2021-10-09 12:17] LABS: Lyme Ab IgG w/WB Rflx Positive (Negative)
[2021-10-09 12:18] LABS: Lyme Ab IgM w/WB Rflx Equivocal (Negative)
--- NOTE | 2021-10-09 12:54 | Communication Note ---
Date of Service: October 09, 2021 Hospitalist consultation done early this morning for 3.2 second pause around 5am . Mag 2.0, phos 3.5 Has remained 50-60s NSR since that time. EKG with NSR, RBBB (not new) BPs improved but still required 4L to maintain sats Hgb 12.2, acute blood loss anemia from surgery/dilutional from IVF ordered for hypotension overnight IVF subsequently discontinued, given 20mg IV Lasix for some LE edema and currently on 2L with SPO2 92%, BP 110/56 Had been running 87-88% when attempted to titrate to room air Patient sitting upright in hospital bed. States feeling well, no pain at present. No fever/chills/chest pain/cough/sputum production/palpitations/abd pain, nausea or vomiting. No lightheadedness/dizziness reported but hadn't been up out of bed yet this morning/worked with PT. Remotely had been started on mirtazapine for mood/sleep/appetite and had some abn lip movements but they "didn't want to change anything prior to surgery". --Holding for tonight -- holds risk orthostatic hypotension as well as alpha blocking effects (reported issues with urination but UOP reported by RN good so far this morning even before the lasix) Did check Lyme titer as well given pause, IgM equivocal/IgG positive. Checking with patient to see if ever had history/treated for such (no lesions observed on examination), but consideration to start empiric doxy/send on discharge (chronic joint pains, here for L SRAVANI with Dr Tillman) WB pending for confirmation
--- NOTE | 2021-10-09 13:22 | Electrocardiogram Report ---
Test Reason : Blood Pressure : / mmHG Vent. Rate : 060 BPM Atrial Rate : 060 BPM P-R Int : 186 ms QRS Dur : 132 ms QT Int : 460 ms P-R-T Axes : 050 029 040 degrees QTc Int : 460 ms Normal sinus rhythm Right bundle branch block Abnormal ECG When compared with ECG of 04-FEB-2021 21:15, No significant change was found Confirmed by Saul Martinez ([id number]) on 10/09/2021 1:21:27 PM Referred By: Manohar Tillman Confirmed By:Saul Martinez
[2021-10-09] MEDS ORDERED: CALCIUM CARBONATE 500 MG CHEWABLE TAB PO PRN ×2 (16:01→17:20)
[2021-10-09] MEDS: SENNA 8.6 MG TAB PO SCH (21:01)
[2021-10-09] MEDS: ATORVASTATIN 40 MG TAB PO SCH (21:02)
[2021-10-09] MEDS: METOPROLOL SUCC 25MG EXT REL TAB PO SCH (21:03)
[2021-10-10] MEDS: ACETAMINOPHEN 500 MG TAB PO SCH ×2 (06:11→13:19)
--- NOTE | 2021-10-10 07:28 | Orthopedic Progress Note ---
Date of Service October 10, 2021 Assessment & Plan (1) Status post left hip replacement: He is doing well with regards to therapy. We will see how he does today. We will need to wean him off the oxygen before he is stable to return home. He is on aspirin for DVT prophylaxis. If he is able to wean off the oxygen, if he does well with therapy, and if the hospitalist agrees, we can discharge him to home later today. Otherwise, we will keep him till tomorrow. Bryn Donnelly was seen and examined at bedside this morning. He is still on a liter of oxygen. According to his therapy report, he did very well. He is was up and ambulating and was motivated. When I asked him this morning, he was forgetful if he was able to get up or not. He is being followed by the hospitalist as well. He is not having much pain in his hip. Review of Systems All systems reviewed & are unremarkable except as noted in HPI & below. Physical Exam On physical examination of his left hip, the dressing is clean and dry. His leg lengths are equal. He is active dorsiflexion plantarflexion of his left ankle.. Results & Data Results & Data Laboratory Results . Diagnostic Findings . PG Care Time/CCT Total # of Minutes Spent Total Time Spent with Patient: Total time spent is greater than 50% in coordination of care (as documented) at patient's floor/unit and/or counseling patient: Coding Level of Care Code 02137 Post Operative Follow-Up Diagnoses Status post left hip replacement Z96.642
--- NOTE | 2021-10-10 07:45 | Hospitalist Progress Note ---
Date of Service October 10, 2021 Assessment & Plan (1) Bradycardia: Plan: 81yo male s/p left hip SRAVANI performed yesterday by Dr. Tillman with 3.2 second pause noted on telemetry. Patient is asymptomatic, HD stable and non toxic in appearance. He is on Metoprolol 12.5mg po BID which was held last evening. Pause possibly secondary to anesthesia effects. Post-operatively, 3.2 second pause on telemetry Asymptomatic, HD Was remotely placed on remeron for sleep with some side effects noted. This was held last evening and would hold moving forward and f/u PCP regarding restarting this vs another agent Did check Lyme, positive. Patient admitted to prior hx Lyme and tx x 28 days Mag, BMP, phos w/o abnormality Metoprolol with hold parameters continued -- asymptomatic Given 1L LR @ 100cc/hr however some volume overload/BPs improved and was administered IV lasix x1 Weaned to Room air this morning, 94%. No sob/cp reported Does have hx COPD Recommended discontinuing remeron at d/c and f/u PCP To remain on metoprolol given hx CAD and can f/u Dr Dhaliwal Plans for d/c today. Messaged Dr Tillman. Will sign off. Please call with any questions/concerns (2) Status post left hip replacement: Plan: Patient overall doing well. Pain well controlled -Continue pain control, anti-emetics and bowel regimen per primary team -PT/OT and discharge planning per primary team planning for home today (3) Hypertension: Plan: Blood pressure well controlled 130/68 currently -Continue metoprolol with holding parameters -Monitor (4) PAD (peripheral artery disease): Plan: Chronic. -Continue ASA 81mg po daily BID for DVT prophylaxis Continue Atorvastatin 40mg po daily (5) Atrial fibrillation: Plan: Paroxysmal. No recurrence for years. Patient presently in NSR -Continue Metoprolol -Not on anticoagulation- history of Coburn aneurysm Has not had recurrence of afib in approx [address] Cortes (6) CAD (coronary artery disease): Plan: Chronic. Stable -Continue ASA as above, Atorvastatin Remains on metoprolol 12.5mg, ok to continue given CAD and asymptomatic from pause as above Pause <3.5 and remains in normal sinus rhythm (7) Chronic obstructive pulmonary disease: Plan: No cough, SOB or wheeze. Patient does not use inhalers -Continue to monitor Weaned to RA Continue incentive spirometer at home was discussed with patient (8) Enlarged prostate: Plan: bladder scan as needed. Patient reports occasional difficulty passing urine -- could be from alpha properties of remeron as well, rec'd to hold/dc at discharge Increase in UOP and was given lasix 20mg yesterday after IVF for some volume overload No issues reported today Plan: plans for discharge today Hospitalist to sign off Please call with any questions/concerns Admission and Anticipated Discharge Date Admission Date: October 08, 2021 Supervising Physician Co-Signing Physician Notes PA Supervision Note: I did not personally see or examine the patient today, but I verified all miller points of GABI Vyas's assessment and plan with the following exceptions/additions: None Subjective Patient evaluated this morning. Doing well. Off of oxygen. Minimal pain to R hip, controlled with medications and ice. Planning for home. Had 3.3 second pause this morning. Asymptomatic from such and continues on metoprolol. HRs in the 40s-60s. Discussed holding Remeron at discharge and following up with his PCP regarding alternative medication but does increase risk for pauses. Review of Systems Review of Systems: All systems reviewed & are unremarkable except as noted in HPI & below Physical Exam Physical Exam: General: WN/WD elderly male sitting up in chair at window, NAD HEENT: head normocephalic, atraumatic, pupils equal, reactive to light, trachea midline without deviation, mmm Resp: CTAB, diminished in bases, no w/c/r, on room air SpO2 94% CV: bradycardic (rate 52bpm), regular rhythm, +systolic murmur, calves non- tender, cap refill wnl GI: +BS, soft, non-tender : no lees MSK/Neuro: dressing to R hip c/d/i, minimal edema, minimal tenderness to palpation, NVI, strength equal b/l LE with dorsiflexion/plantarflexion no facial droop/slurred speech, follows commands, CN intact grossly Psych: AOX4, pleasant and cooperative Skin: warm, dry Results & Data Results & [facility] ([facility]) Vital Signs (Past 12 Hours) Vital Signs Temp Pulse Pulse Resp BP Pulse Ox 10/10/21 07:16 62 10/10/21 03:50 36.5 C 68 18 145/65 H 92 10/09/21 23:42 74 10/09/21 23:02 36.5 C 63 18 137/63 90 10/09/21 20:59 63 20 154/86 H 96 Laboratory Results 10/09/21 10/09/21 10/09/21 Range/Units 09:15 09:15 06:29 WBC 12.68 H (4.8-10.8) K/uL RBC 4.10 L (4.7-6.1) M/uL Hgb 12.2 L (14.0-18.0) g/dL Hct 36.6 L (42-52) % MCV 89.3 (80-100) fL MCH 29.8 (25-34) pg MCHC 33.3 (32-36) g/dL RDW Std Deviation 45.3 (36.4-46.3) fL RDW Coeff of Kelsey 13.8 (11.5-14.5) % Plt Count 229 (130-400) K/uL MPV 10.5 H (7.4-10.4) fL Immature Gran % (Auto) 0.3 % Neut % (Auto) 77.5 % Lymph % (Auto) 12.9 % Polk % (Auto) 9.3 % Eos % (Auto) 0.0 % Baso % (Auto) 0.0 % Neut # (Auto) 9.82 H (1.4-6.5) K/uL Lymph # (Auto) 1.64 (1.2-3.4) K/uL Polk # (Auto) 1.18 H (0.11-0.59) K/uL Eos # (Auto) 0.00 (0-0.5) K/uL Baso # (Auto) 0.00 (0-0.2) K/uL Immature Gran # (Auto) 0.04 H (0.00-0.02) K/uL Lyme Disease IgG Ab Positive A (Negative) Lyme IgG (Western Blot) Pending Lyme IgG 18 kDa Band Pending Lyme IgG 23 kDa Band Pending Lyme IgG 28 kDa Band Pending Lyme IgG 30 kDa Band Pending Lyme IgG 39 kDa Band Pending Lyme IgG 41 kDa Band Pending Lyme IgG 45 kDa Band Pending Lyme IgG 58 kDa Band Pending Lyme IgG 66 kDa Band Pending Lyme IgG 93 kDa Band Pending Lyme IgM Ab (WB) Pending Lyme Disease IgM Ab Equivocal A (Negative) Lyme IgM 23 kDa Band Pending Lyme IgM 39 kDa Band Pending Lyme IgM 41 kDa Band Pending PG Care Time/CCT Total # of Minutes Spent Total Time Spent with Patient: Total time spent is greater than 50% in coordination of care (as documented) at patient's floor/unit and/or counseling patient: Coding Level of Care Code 07069 Subseq Obs Care Lvl 2 Diagnoses Bradycardia R00.1 Status post left hip replacement Z96.642 Hypertension I10 PAD (peripheral artery disease) I73.9 Atrial fibrillation I48.91 CAD (coronary artery disease) I25.10 Chronic obstructive pulmonary disease J44.9 Enlarged prostate N40.0
[2021-10-10] MEDS: oxyCODONE HCL IR 5 MG TAB (IMMEDIATE RELEASE) PO PRN ×2 (08:14→13:18)
[2021-10-10] MEDS: DOCUSATE SODIUM 100 MG CAP PO SCH (08:15)
[2021-10-10] MEDS: ASPIRIN 81 MG ECTAB PO SCH (08:15)
[2021-10-10] MEDS: MULTIVITAMIN TAB PO SCH (08:15)
[2021-10-13 01:56] LABS: 18KDIGG Band REACTIVE; 23KDIGG Band NON-REACTIVE; 23KDIGM Band DNR; 28KDIGG Band REACTIVE; 30KDIGG Band NON-REACTIVE; 39KDIGG Band REACTIVE; 39KDIGM Band DNR; 41KDIGG Band REACTIVE; 41KDIGM Band DNR; 45KDIGG Band REACTIVE; 58KDIGG Band REACTIVE; 66KDIGG Band NON-REACTIVE; 93KDIGG Band REACTIVE; Lyme Antibodies, WB IgG POSITIVE (NEGATIVE)
--- NOTE | 2021-10-16 07:17 | Discharge Summary ---
Date of Service October 16, 2021 Principal Diagnosis Same as "Discharge Diagnosis" noted below under Discharge Instructions. Discharge Exam On physical examination of his left hip, the dressing is clean and dry. His leg lengths are equal. He is active dorsiflexion plantarflexion of his left ankle.. Discharge Data Consultations 10/09/21 05:23 Consult Hospitalist Routine Procedures Performed Operation Date: 10/08/21 09:20 Actual Procedures p Left Anterior Total Hip Arthroplasty(Left) - Manohar Tillman DO Ordered Studies 10/08/21 09:20 FL hip LT 1V Routine Hospital Course (1) Status post left hip replacement: On October 08, 2021 Andrzej arrived at [facility] and underwent a left hip replacement without complication. Postoperatively he was started on aspirin for DVT prophylaxis and transferred to the general orthopedic floors. On his first hospital night, he had a minor cardiac episode and the hospitalist was consulted. He was also on 4 L of oxygen by nasal cannula. On postop day #1, he was able to participate well with physical therapy doing ambulation and range of motion exercises. They were unable to completely wean him off the oxygen. On postop day #2 he was doing better. They were able to wean him off the oxygen and he was able to participate well with physical therapy. He was seen again by the hospitalist and then discharged home. He will follow-up with orthopedics in 2 weeks. PG Care Time/CCT Total # of Minutes Spent Total Time Spent with Patient: Total time spent is greater than 50% in coordination of care (as documented) at patient's floor/unit and/or counseling patient: Discharge Plan Discharge Items Patient Disposition: Home - Home Health Services Reason For Visit: DJD Left hip Discharge Diagnosis: Left hip replacement Activity: Per Instructions section Non-emergency contact: Surgeon Call non-emergency contact if: your wound has increased redness and your wound has increased drainage Follow-up/Referrals: Mami Kebede MD [Primary Care Provider] - Diet: Regular Addtl Attending Provider Instructions: Activity and Therapy Recommendations: * If you are using [facility] then therapy will be provided at your home until they feel you have accomplished all of your goals. * If you are using [facility] then Physical Therapy will be provided until they feel you are ready to start Outpatient Physical Therapy. * If you are not using home therapy then Outpatient Physical Therapy should start about 3-5 days from your day of surgery. Therapy will last about 6-10 weeks * You were shown a series of exercises in the hospital. Do these exercises three times each day including the exercises you were shown in physical therapy. * Get up and walk several times each day.~ For the first four weeks, try not to stand or walk for more than one hour at a time. If you do stand or walk for more than one hour, you will not hurt anything, but your leg will likely swell.~~ * As you feel comfortable, you may change from the walker or crutches to a cane and~then to independent walking. Medications: * Narcotic You will likely be sent home from the hospital with a prescription for the narcotic pain medication that worked best throughout your stay. * Aspirin Most patients will be required to take Aspirin 81mg twice a day for 6 weeks after surgery. This is obtained [id number] and a prescription is not necessary. * Other medications may be prescribed for specific circumstances. If you have any questions, please call the office at . * Resume previous home medications unless otherwise instructed TEDs/Elastic Stockings: The white elastic stockings help limit swelling and prevent blood clots from forming in your legs. The more you wear them, the more they work. Wear them for six weeks. Dressing Care: Leave the Silverlon dressing in place for 7 days. After 7 days you may remove the dressing. If the incision is not draining then you may leave the montana open to air. If there is a little bit of drainage or if the montana are getting stuck on your clothing then cover the incision with a dry dressing. The montana will be removed at your 2 week follow-up appointment. Showering: You may shower with the Silverlon dressing in place. Do not let the shower spray hit the dressing directly. Pat the Silverlon dressing dry. If the dressing becomes wet underneath, then simply remove the dressing. Keep the incision dry until you are 7 days out from the day of surgery. After 7 days you may remove the Silverlon dressing and shower with the montana exposed. Let soapy water run over the montana and pat them dry. Do not scrub or soak the incision. Things To Watch For: * Drainage from the incision site that occurs more than one week after your surgery. * Increased redness at the incision site. * Fever above 102 degrees Fahrenheit. * Unusual chest pain or shortness of breath. * Call [facility] at with any of the above problems Follow-Up Visit: Follow-up with Dr. Tillman's PA (Manohar Strickland) 2-3 weeks after your day of surgery. He will remove your montana and answer any questions. If you have any additional questions or concerns, Dr Tillman is usually in the office at the same time and will be available An appointment was probably scheduled when you signed-up for surgery in the office. If you have any questions call Office Instructions: More detailed instructions as well as Frequently Asked Questions were provided in a folder by our office when you signed-up for surgery. Please review these instructions when you get home. 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 This could cause increase issues with urination as well as lead to heart block which could be contributing to the pauses noted on monitor. You were asymptomatic from this and metoprolol is to be continued but you will need follow up with Dr Cortes to have close followup/discussions. Pending Studies at Discharge: No Stand-Alone Forms: My [facility] Medications and DC Order Prescriptions: New tramadol 50 mg tablet 50 mg PO Q6H PRN (Reason: pain) Qty: 30 RF: 0 Continued atorvastatin [Lipitor] 40 mg tablet 40 mg PO QPM RF: 0 albuterol sulfate [Ventolin HFA] 90 mcg/actuation HFA aerosol inhaler 2 puff inhalation Q6H PRN (Reason: Wheezing) RF: 0 nitroglycerin [Nitrostat] 0.4 mg tablet, sublingual 0.4 mg sublingual Q5M PRN (Reason: Chest Pain) RF: 0 docusate sodium [Colace] 100 mg capsule 100 mg PO BID RF: 0 PreserVision AREDS [id number],320-226-200 eaeg-nj-eefm capsule 1 cap PO BID RF: 0 metoprolol succinate 25 mg tablet extended release 24 hr 12.5 mg PO QPM RF: 0 acetaminophen 500 mg Tablet 1,000 mg PO Q6H PRN (Reason: Pain) RF: 0 cholecalciferol (vitamin D3) [Vitamin D3] 25 mcg (1,000 unit) Tablet,Chewable 25 mcg PO QAM RF: 0 Changed aspirin 81 mg Tablet,Delayed Release (Dr/Ec) 81 mg PO BID 42 Days Qty: 0 RF: 0 Discontinued mirtazapine [Remeron] 15 mg tablet 15 mg PO HS RF: 0 Discharge Orders: Discharge Order (Routine); Ordered 10/10/21 Ordered By: Manohar Tillman Admission Data Admit Date/Time: 10/08/21 10:36 Attending Provider: Manohar Tillman Admit Provider: Manohar Tillman Primary Care Provider: Mami Kebede Other Providers: Ramona Warren ; Gerald Dodd ; [facility],Home [facility] Other Interventions: Discharge Summary Assessment (RN) Last Done: 10/10/21 11:45
== END 2021-10-10 14:03 | disposition home health service (06) ==
LOC: 2N 07:03 → ASU 07:03
DX: Z87.891 Personal history of nicotine dependence; Z88.8 Allergy status to other drugs, medicaments and biological substances; R00.1 Bradycardia, unspecified; I10 Essential (primary) hypertension; I48.0 Paroxysmal atrial fibrillation; D62 Acute posthemorrhagic anemia; Z20.822 Contact with and (suspected) exposure to COVID-19; G89.29 Other chronic pain; N40.0 Benign prostatic hyperplasia without lower urinary tract symptoms; J44.9 Chronic obstructive pulmonary disease, unspecified; I25.10 Atherosclerotic heart disease of native coronary artery without angina pectoris; Z86.73 Personal history of transient ischemic attack (TIA), and cerebral infarction without residual deficits; M16.12 Unilateral primary osteoarthritis, left hip; I73.9 Peripheral vascular disease, unspecified; Z91.013 Allergy to seafood

== ENCOUNTER 2022-04-08 08:15 | Inpatient (IN) ==
--- NOTE | 2022-04-08 08:27 | History & Physical Report ---
Date of Service April 08, 2022 Assessment & Plan (1) Hematochezia: Plan proceed with colonoscopy. risks/benefits and procedure discussed with patient, who agrees to proceed History of Present Illness Primary Care Provider: Mami Kebede MD 81 yo male here for colonoscopy. Allergies Allergy/AdvReac Type Severity Reaction Status Date / Time shellfish derived AdvReac Severe "Violent" Verified 04/07/22 10:04 vomiting alfuzosin AdvReac Intermediate BP dropped Verified 04/07/22 10:04 Home Medications Medication Instructions Recorded Confirmed Type albuterol sulfate 90 mcg/actuation 2 puff inhalation Q6H PRN Wheezing 12/04/20 04/07/22 History aerosol inhaler (Ventolin HFA) atorvastatin 40 mg tablet (Lipitor) 40 mg PO QPM 12/04/20 04/07/22 History nitroglycerin 0.4 mg sublingual 0.4 mg sublingual Q5M PRN Chest 12/04/2004/07 History tablet (Nitrostat) Pain vitamins A,C,D-eofx-zltchq 14,320 1 cap PO BID 05/06/21 04/07/22 History unit-226 mg-200 unit capsule (PreserVision AREDS) cholecalciferol (vitamin D3) 25 25 mcg PO QAM 09/14/21 04/07/22 History mcg (1,000 unit) chewable tablet (Vitamin D3) amlodipine 5 mg tablet (Norvasc) 5 mg PO QAM 03/29/22 04/07/22 History aspirin 81 mg tablet,delayed 81 mg PO QPM 03/29/22 04/07/22 History release dabigatran etexilate 150 mg 150 mg PO BID 03/29/22 04/07/22 History capsule (Pradaxa) docusate sodium 100 mg capsule 100 mg PO QPM 03/29/22 04/07/22 History (Colace) escitalopram oxalate 5 mg tablet 5 mg PO QAM 03/29/22 04/07/22 History (Lexapro) omeprazole 20 mg capsule,delayed 20 mg PO QAM 03/29/22 04/07/22 History release prednisone 20 mg tablet 20 mg PO QPM 03/29/22 04/07/22 History vitamin B complex 1 tab PO QAM 03/29/22 04/07/22 History enoxaparin 80 mg/0.8 mL 80 mg subcut DAILY 04/07/22 04/07/22 History subcutaneous syringe (Lovenox) Past Med/Surg History Medical History Aneurysm of MCA Anxiety Aortic stenosis Moderate per 06/04/20 ECHO Arthritis Atrial fibrillation Single episode, Follows Dr. Huertas CAD (coronary artery disease) Mild to moderate nonobstructive CAD per 2017 cardiac cath Chronic obstructive pulmonary disease Depression Enlarged prostate History of GI bleed recent 01/10/21 Hypertension Kidney lesion UROLOGY FOLLOWING Lung nodule Under surveillance by [facility] pulmonary Mass of colon S/P GIB/bowel resection 01/2021 PAD (peripheral artery disease) S/p CEA (left side-2017) > Follows with vascular (Dr. Alcaraz) > no deficits Polymyalgia rheumatica REASON FOR PREDNISONE Short-term memory loss Stroke 2017 + 02/02/22 (SPEECH EFFECTED AT TIME OF STROKE>NO CURRENT ISSUES) REASON FOR PRADAXA Subclavian steal syndrome of left subclavian artery TIA (transient ischemic attack) 2011 Surgical History Carotid artery disorder Left CEA ([facility]) H/O carotid endarterectomy left H/O exploratory laparotomy Exploratory Laparotomy with Abdominal Washout and Fascial Closure (02/11/21) History of adenoidectomy History of anesthesia reaction Hypotension with colonoscopy (one episode) History of appendectomy History of bowel resection 02/05/2021 History of cardiac cath x3 (2011, 2013, 2016) > no stents History of cataract surgery R/L History of colonoscopy x3 History of esophagogastroduodenoscopy (EGD) History of herniorrhaphy R/L INGUINAL History of loop recorder PLACED 2019/PRESENT History of tonsillectomy History of total hip arthroplasty LEFT Family History Brother Family history of diabetes mellitus Cancer Diabetes Aunt Breast cancer Father Heart disease Other No family history of adverse response to anesthesia Denies family history of Lung disease Asthma Social History Smoking Status: Former smoker Tobacco Type: Cigarettes packs per day: 1; Second Hand Exposure: No; Hx Alcohol Use: No Hx Substance Use: No Preferred Language: Hebrew Communication Ability: Effective 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 Beliefs That Will Affect Care: None marital status: Current Living Situation: Spouse current occupational status: retired How many Children do You have: 3 Feels Safe at Home: Yes Assistive Devices: Denture - Upper, Denture - Lower, Glasses and Walker Physical Exam Constitutional: WD/WN, vitals as above Respiratory: normal respiratory effort, lungs clear to auscultation Cardiovascular: RRR, no murmur, no edema Gastrointestinal (Abdomen): normal bowel sounds, soft, nontender, no hepatosplenomegaly Musculoskeletal: no lower extremity edema Psychiatric: A+Ox3, euthymic affect Coding Level of Care Code INT OBSERVATION CARE 70M LVL 3 Diagnoses Hematochezia K92.1
--- NOTE | 2022-04-08 08:45 | Anesthesiology Consultation ---
Date of Service April 08, 2022 Assessment & Plan Chart Review Chart Review: Acceptable Risk for Surgery Consults Requested none ASA ASA4 Proposed Anesthesia Anesthesia Type: MAC Risk / Benefits Reviewed With: PT / POA / Parent / Guardian, Accepts Plan and Informed Consent Obtained History Surgery Operation Date: 04/08/22 14:05 Proposed Procedures p Colonoscopy Dr. Yousif Dodd MD Allergies Allergy/AdvReac Type Severity Reaction Status Date / Time shellfish derived AdvReac Severe "Violent" Verified 04/08/22 08:33 vomiting alfuzosin AdvReac Intermediate BP dropped Verified 04/08/22 08:33 Medications Home Medications Medication Instructions Recorded Confirmed Last Taken albuterol sulfate 90 mcg/actuation 2 puff inhalation Q6H PRN Wheezing 12/04/20 04/08/22 Unknown aerosol inhaler (Ventolin HFA) atorvastatin 40 mg tablet (Lipitor) 40 mg PO QPM 12/04/20 04/08/22 04/07/22 20:00 nitroglycerin 0.4 mg sublingual 0.4 mg sublingual Q5M PRN Chest 12/04/20 04/08/22 Unknown tablet (Nitrostat) Pain vitamins A,C,Q-scss-htbhlx 14,320 1 cap PO BID 05/06/21 04/08/22 04/07/22 unit-226 mg-200 unit capsule (PreserVision AREDS) cholecalciferol (vitamin D3) 25 25 mcg PO QAM 09/14/21 04/08/22 04/07/22 mcg (1,000 unit) chewable tablet (Vitamin D3) amlodipine 5 mg tablet (Norvasc) 5 mg PO QAM 03/29/22 04/08/22 04/07/22 07:30 aspirin 81 mg tablet,delayed 81 mg PO QPM 03/29/22 04/08/22 04/06/22 release dabigatran etexilate 150 mg 150 mg PO BID 03/29/22 04/08/22 04/03/22 capsule (Pradaxa) docusate sodium 100 mg capsule 100 mg PO QPM 03/29/22 04/08/22 04/05/22 (Colace) escitalopram oxalate 5 mg tablet 5 mg PO QAM 03/29/22 04/08/22 04/07/22 07:30 (Lexapro) omeprazole 20 mg capsule,delayed 20 mg PO QAM 03/29/22 04/08/22 04/07/22 07:30 release prednisone 20 mg tablet 20 mg PO QPM 03/29/22 04/08/22 04/07/22 07:00 vitamin B complex 1 tab PO QAM 03/29/22 04/08/22 04/07/22 enoxaparin 80 mg/0.8 mL 80 mg subcut DAILY 04/07/22 04/08/22 04/06/22 20:00 subcutaneous syringe (Lovenox) Past Medical History Medical History Aneurysm of MCA Anxiety Aortic stenosis Moderate per 06/04/20 ECHO Arthritis Atrial fibrillation Single episode, Follows Dr. Huertas CAD (coronary artery disease) Mild to moderate nonobstructive CAD per 2017 cardiac cath Chronic obstructive pulmonary disease Depression Enlarged prostate History of GI bleed recent 01/10/21 Hypertension Kidney lesion UROLOGY FOLLOWING Lung nodule Under surveillance by [facility] pulmonary Mass of colon S/P GIB/bowel resection 01/2021 PAD (peripheral artery disease) S/p CEA (left side-2017) > Follows with vascular (Dr. Alcaraz) > no deficits Polymyalgia rheumatica REASON FOR PREDNISONE Short-term memory loss Stroke 2017 + 02/02/22 (SPEECH EFFECTED AT TIME OF STROKE>NO CURRENT ISSUES) REASON FOR PRADAXA Subclavian steal syndrome of left subclavian artery TIA (transient ischemic attack) 2011 Exercise / Class Metabolic Activity III < 4 Walking/Shop/Light housework Past Family History Family History Brother Family history of diabetes mellitus Cancer Diabetes Aunt Breast cancer Father Heart disease Other No family history of adverse response to anesthesia Denies family history of Lung disease Asthma Past Surgical History Surgical History Carotid artery disorder Left CEA ([facility]) H/O carotid endarterectomy left H/O exploratory laparotomy Exploratory Laparotomy with Abdominal Washout and Fascial Closure (02/11/21) History of adenoidectomy History of anesthesia reaction Hypotension with colonoscopy (one episode) History of appendectomy History of bowel resection 02/05/2021 History of cardiac cath x3 (2011, 2013, 2017) > no stents History of cataract surgery R/L History of colonoscopy x3 History of esophagogastroduodenoscopy (EGD) History of herniorrhaphy R/L INGUINAL History of loop recorder PLACED 2019/PRESENT History of tonsillectomy History of total hip arthroplasty LEFT Past Anesthesia History No Hx of Anesthesia Complications and No Family Hx of Anesthesia Complications History of PONV No Hx of PONV and No Hx of Motion Sickness Social History Smoking Status: Former smoker tobacco type: cigarettes Hx Alcohol Use: No Alcohol type: wine alcohol intake frequency: holidays/special occasions only Hx Substance Use: No substance use type: does not use Physical Exam ENMT Mouth: no dentition abnormality Thyromental Distance: > or= 3.5 Finger Breadths Mallampati Class: II Neck normal visual inspection Respiratory normal respiratory effort Auscultation: lungs clear to auscultation bilaterally Cardiovascular Rate/Rhythm: regular rate and regular rhythm
--- NOTE | 2022-04-08 09:40 | GI REPORT ---
Patient Name: Andrzej Degroot Procedure Date: 04/08/2022 8:58 AM Date of : 1940 Admit Type: Outpatient Age: 81 Gender: Male Attending MD: Conner Dodd MD, Procedure: Colonoscopy Providers: Conner Dodd MD Referring MD: Conner Dodd MD Indications: Hematochezia Medicines: Monitored Anesthesia Care Complications: No immediate complications. Estimated blood loss: None. Estimated Blood Loss: Estimated blood loss: none. Procedure: Pre-Anesthesia Assessment: - Prior Anticoagulants: The patient has taken Pradaxa (dabigatran), last dose was 5 days prior to procedure. - ASA Grade Assessment: II - A patient with mild systemic disease. After I obtained informed consent, the scope was passed under direct vision. Throughout the procedure, the patient's blood pressure, pulse, and oxygen saturations were monitored continuously. The scope was introduced through the anus and advanced to the cecum, identified by appendiceal orifice and ileocecal valve. The colonoscopy was performed without difficulty. The patient tolerated the procedure well. The quality of the bowel preparation was poor. Findings: Hematin (altered blood/yzhite-bygbbh-nmjs material) was found in the entire colon. Oozing blood from a vessel was seen in the ascending colon, secondary to previous polypectomy procedure at polypectomy site. For hemostasis, seven hemostatic clips were successfully placed. 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 There was no bleeding at the end of the procedure. Impression: - Preparation of the colon was poor. - Blood in the entire examined colon. - Bleeding in the ascending colon secondary to previous polypectomy. Clips were placed. 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 - No specimens collected. Recommendation: - Admit the patient to [facility] for [facility]. - Clear liquid diet today. -supportive care, trend H/H, transfuse prn -hold pradaxa and AC for 5 days Conner Dodd MD 04/08/2022 9:39:31 AM This report has been signed electronically. Note Initiated On: 04/08/2022 8:58 AM Number of Addenda: 0 I attest to the content of the Intraoperative Record and orders documented therein, exceptions below {[id number]}
--- NOTE | 2022-04-08 10:04 | Anesthesiology Progress Note ---
Date of Service April 08, 2022 Anesthesia Post Procedure Vital Signs Vital Signs: Temp Pulse Resp BP Pulse Ox O2 Del Method O2 Flow Rate 04/08/22 09:50 60 16 122/66 96 Room Air 04/08/22 09:35 67 16 101/62 99 Oxymask 10 04/08/22 08:45 98.2 F 58 L 16 149/61 H 97 Room Air Transfer of Care Handoff Completed per policy Notes Mental Status: alert / awake / arousable and participated in evaluation Patient Amnestic to Procedure: Yes Nausea / Vomiting: adequately controlled Pain: adequately controlled Airway Patency, RR, SpO2: stable & adequate BP & HR: stable & adequate Hydration State: stable & adequate Anesthetic Complications: no major complications apparent and Pt Satisfied with anesthetic care
--- NOTE | 2022-04-08 10:13 | History & Physical Report ---
Date of Service April 08, 2022 Assessment & Plan (1) Post-polypectomy bleeding: Plan: -Admit to med/tele -Patient is currently afebrile, hemodynamically stable, and stable on RA -S/P 500 mL IV bolus of Lactated Ringer's -Blood consent obtained from family, Type & Screen, CBC, and CMP ini process -Will then monitor H&H q8h moving forward, transfuse for Hgb < 7, recurrent major bleed, if if the patient continues to bleed and is symptomatic -Will hold home prednisone today to prevent further GI bleeding, can resume tomorrow if stable -Hold Pradaxa and Lovenox for now, family is aware there is an increased risk of clot/stroke but agree that risk of bleeding is higher at this time -Continue cclear liquid diet as recommended by GI -Spoke to GI, no need for antibiotics at this time -Will continue with PO intake for now to avoid volume overload -SCDs for DVT PPX (2) Aortic stenosis, moderate: Plan: -Currently Euvolemic -Monitor for volume overload after IV fluids (3) CAD (coronary artery disease): Plan: -Hold aspirin for now with recent bleed (4) Atrial fibrillation: Plan: -Currently rate controlled -Hold any anticoagulation for now (5) Chronic obstructive pulmonary disease: Plan: -Continue home breathing treatments -Incentive spirometry and flutter therapy ordered (6) Hypertension: Plan: -Hold antihypertensives for now to prevent hypotension (7) History of CVA (cerebrovascular accident): Plan: -Hold pradaxa and lovenox for now (8) Polymyalgia rheumatica: Plan: -Normally on 20 mg PO prednisone daily -Last dose was last evening -Will hold dose today to prevet further GI bleeding -Can resume tomorrow (ordered) if he remains stable -If the patient would become febrile or hemodynamically unstable would recommend IV glucocorticoids at stress dose levels Plan The patient was discussed with Dr. Lewis at the time of the admission History of Present Illness Chief Complaint: Hematochezia S/P polypectomy on 04/07/22 Primary Care Provider: Mami Kebede MD Andrzej is an 81yo male with history of moderate , AF, CAD, COPD, HTN, s/p L SRAVANI, hx of menendez aneurysm, polymyalgia rheumatica, previous CVA (on Pradaxa) and previous colon cancer who presented to the [facility] endoscopy suite today due to hematochezia after his colonoscopy yesterday with Dr. Dodd. Per chart review, the patient's colonoscopy yesterday was a routine surveillance procedure due to his previous history of colon cancer. Per the report from yesterday, multiple polyps were found and removed in the ascending colon, there was no bleeding seen at the time of polyp removal yesterday. At the time of my exam the patient was resting comfortably in bed in no acute distress with his and daughter sitting bedside. He was noted to be afebrile, hemodynamically stable, and stable on room air. The majority of the history was obtained from the patient's and daughter due to baseline confusion due to his previous strokes. His confirmed that his colonoscopy yesterday was surveillance due to his history of colon cancer. She explained that his last dose of Pradaxa was on 04/03/22. Due to his stroke history he had been bridged on Lovenox while off Pradaxa, his last dose of Lovenox was on 04/06/22. The patient's states that this morning when he woke he went to the bathroom to have a bowel movement and they noticed large amounts of bright red blood, which is why they came back to the hospital. The patient has confusion at baseline, if he is not at home then his baseline will be alert and oriented to self. His and daughter also explained that he has known tardive dyskinesia. I went of a blood consent with his (CLARISA) and daughter at bedside. They are in agreement with a blood transfusion if needed and they both signed the consent. We had a long discussion regarding code status, they would not want CPR or defibrillation in the even of cardiac arrest but would want a trial of intubation if needed. When asked, the patient any pain or discomfort at the time of the exam. The patient had been given 500 mL of Ringer's Lactate before my arrival. His and daughter explained that he has a history of respiratory failure from too much IV fluids on previous admissions and wanted to make sure I was aware. Please refer to Dr. Lewis's attestation for any changes to the treatment plan. Allergies Allergy/AdvReac Type Severity Reaction Status Date / Time shellfish derived AdvReac Severe "Violent" Verified 04/08/22 08:33 vomiting alfuzosin AdvReac Intermediate BP dropped Verified 04/08/22 08:33 Home Medications Medication Instructions Recorded Confirmed Type albuterol sulfate 90 mcg/actuation 2 puff inhalation Q6H PRN Wheezing 12/04/20 04/08/22 History aerosol inhaler (Ventolin HFA) atorvastatin 40 mg tablet (Lipitor) 40 mg PO QPM 12/04/20 04/08/22 History nitroglycerin 0.4 mg sublingual 0.4 mg sublingual Q5M PRN Chest 12/04/20 04/08/22 History tablet (Nitrostat) Pain vitamins A,C,L-kffq-qpxuas 14,320 1 cap PO BID 05/06/21 04/08/22 History unit-226 mg-200 unit capsule (PreserVision AREDS) cholecalciferol (vitamin D3) 25 25 mcg PO QAM 09/14/21 04/08/22 History mcg (1,000 unit) chewable tablet (Vitamin D3) aspirin 81 mg tablet,delayed 81 mg PO QPM 03/29/22 04/08/22 History release docusate sodium 100 mg capsule 100 mg PO QPM 03/29/22 04/08/22 History (Colace) escitalopram oxalate 5 mg tablet 5 mg PO QAM 03/29/22 04/08/22 History (Lexapro) omeprazole 20 mg capsule,delayed 20 mg PO QAM 03/29/22 04/08/22 History release prednisone 20 mg tablet 20 mg PO QPM 03/29/22 04/08/22 History vitamin B complex 1 tab PO QAM 03/29/22 04/08/22 History dabigatran etexilate 150 mg 150 mg PO BID #1 cap 04/12/22 04/08/22 Rx capsule (Pradaxa) Past Med/Surg History Medical History (Updated 04/08/22 @ 10:51 by Constantino Mckoy PA-C) Aneurysm of MCA Anxiety Aortic stenosis Moderate per 06/04/20 ECHO Arthritis Atrial fibrillation Single episode, Follows Dr. Huertas CAD (coronary artery disease) Mild to moderate nonobstructive CAD per 2017 cardiac cath Chronic obstructive pulmonary disease Depression Enlarged prostate History of GI bleed recent 01/10/21 Hypertension Kidney lesion UROLOGY FOLLOWING Lung nodule [place] [facility] [place] Mass of colon S/P GIB/bowel resection 01/2021 PAD (peripheral artery disease) S/p CEA (left side-2018) > Follows with vascular (Dr. Alcaraz) > no deficits Polymyalgia rheumatica REASON FOR PREDNISONE Short-term memory loss Stroke 2017 + 02/02/22 (SPEECH EFFECTED AT TIME OF STROKE>NO CURRENT ISSUES) REASON FOR PRADAXA Subclavian steal syndrome of left subclavian artery TIA (transient ischemic attack) 2011 Surgical History Carotid artery disorder Left CEA ([facility]) H/O carotid endarterectomy left H/O exploratory laparotomy Exploratory Laparotomy with Abdominal Washout and Fascial Closure (02/11/21) History of adenoidectomy History of anesthesia reaction Hypotension with colonoscopy (one episode) History of appendectomy History of bowel resection 02/05/2021 History of cardiac cath x3 (2011, 2013, 2016) > no stents History of cataract surgery R/L History of colonoscopy x3 History of esophagogastroduodenoscopy (EGD) History of herniorrhaphy R/L INGUINAL History of loop recorder PLACED 2019/PRESENT History of tonsillectomy History of total hip arthroplasty LEFT Family History Brother Family history of diabetes mellitus Cancer Diabetes Aunt Breast cancer Father Heart disease Other No family history of adverse response to anesthesia Denies family history of Lung disease Asthma Social History Smoking Status: Former smoker Tobacco Type: Cigarettes packs per day: 1; Second Hand Exposure: No; Hx Alcohol Use: Yes Alcohol type: wine Hx Substance Use: No Preferred Language: Estonian Communication Ability: Effective 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 All systems have been reviewed and are otherwise negative. Physical Exam Physical Exam: Physical Exam: General: In no acute distress, stated age, chronically ill-appearing. HEENT: Normocephalic, atraumatic, no scleral icterus, pupils around round, symmetrical, and reactive to light, dry mucus membranes, trachea midline, no thyromegaly Chest/Pulm: No respiratory distress, symmetrical chest expansion, clear breath sounds throughout Cardiac: RRR, systolic murmur noted Abdomen: Negative for ascites and bruising, normoactive bowel sounds, soft, non-tender to palpation throughout Musculoskeletal: Symmetrical and without signs of acute trauma, upper and lower extremities with full ROM, no atrophy, spasticity, or flaccidity Extremities: Radial, dorsalis pedis, and posterior tibial pulses are intact and symmetrical, no edema noted in the BL LE's Skin: Warm, dry, no rashes , lesions, or scars noted Neuro: Alert and oriented to person only, patient noted to have lip smacking and tongue movements consistent with TD, CN II-XII tested and intact Psych: No acute distress, pleasantly confused and cooperative during the exam Results & Data Results & Data ([facility]) Vital Signs (Past 12 Hours) Vital Signs Temp Pulse Resp BP Pulse Ox O2 Del Method O2 Flow Rate 04/08/22 09:50 60 16 122/66 96 Room Air 04/08/22 09:35 67 16 101/62 99 Oxymask 10 04/08/22 08:45 36.8 C 58 L 16 149/61 H 97 Room Air ECG Additional Comments: No ECG available at the time of the admission Code Status & VTE Plan Code Status Conditional code. NO CPR or defibrillation; would want a trial of intubation if required VTE Prophylaxis Plan VTE Prophylaxis will be ordered: Yes Supervising Physician Co-Signing Physician Notes During face to face encounter, I obtained a history and physical examination. I reviewed above note and agree with it. I discussed plan of care with Constantino Mckoy and patient. Patient admitted with lower GI bleed. will hold steroids, blood thinners and monitor hemoglobin. PG Care Time/CCT Total # of Minutes Spent Total Time Spent with Patient: Total time spent is greater than 50% in coordination of care (as documented) at patient's floor/unit and/or counseling patient: Coding Level of Care Code Established Pt INT OBSERVATION CARE 70M LVL 3 Patient Type Established Medical Decision Making High Complexity Diagnoses Post-polypectomy bleeding Aortic stenosis, moderate I35.0 CAD (coronary artery disease) I25.10 Atrial fibrillation I48.91 Chronic obstructive pulmonary disease J44.9 Hypertension I10 History of CVA (cerebrovascular accident) Z86.73 Polymyalgia rheumatica M35.3
--- NOTE | 2022-04-08 10:41 | Gastrointestinal Consultation ---
Date of Consultation April 08, 2022 Assessment & Plan (1) Hematochezia: (2) Post-polypectomy bleeding: Plan 1. Recommend hospital admission for observation. 2. Monitor H&H and for s/s of bleeding. Transfuse PRN. 3. Clear liquid diet today and advance as tolerated. 4. Hold Pradaxa x 5 days. 5. Rest per primary team. Thank you for allowing us to participate in the care of this pleasant patient. If you have any questions or concerns, please do not hesitate to contact us. History of Present Illness Reason for Consultation: Post-polypectomy bleed Requesting Physician: Dr. Hughes Attending Physician: Conner Dodd MD History of Present Illness Andrzej Degroot is a 81 y.o. male status post surveillance colonoscopy by Dr. Dodd yesterday with ascending colon polypectomy. Patient began developing rectal bleeding after the procedure and an urgent colonoscopy this morning by Dr. Dodd with findings of active bleeding at the site of ascending colon polypectomy. Successful hemostasis via Endoclip placement. He has been recommended for hospital admission due to blood loss for monitoring. Currently, the patient is unable to provide much history as he is still drowsy from anesthesia. Denies any abdominal pain, however. Allergies Allergy/AdvReac Type Severity Reaction Status Date / Time shellfish derived AdvReac Severe "Violent" Verified 04/08/22 08:33 vomiting alfuzosin AdvReac Intermediate BP dropped Verified 04/08/22 08:33 Home Medications Medication Instructions Recorded Confirmed Type albuterol sulfate 90 mcg/actuation 2 puff inhalation Q6H PRN Wheezing 12/04/20 04/08/22 History aerosol inhaler (Ventolin HFA) atorvastatin 40 mg tablet (Lipitor) 40 mg PO QPM 12/04/20 04/08/22 History nitroglycerin 0.4 mg sublingual 0.4 mg sublingual Q5M PRN Chest 12/04/20 04/08/22 History tablet (Nitrostat) Pain vitamins A,C,G-tbab-wpsvvv 14,320 1 cap PO BID 05/06/21 04/08/22 History unit-226 mg-200 unit capsule (PreserVision AREDS) cholecalciferol (vitamin D3) 25 25 mcg PO QAM 09/14/21 04/08/22 History mcg (1,000 unit) chewable tablet (Vitamin D3) amlodipine 5 mg tablet (Norvasc) 5 mg PO QAM 03/29/22 04/08/22 History aspirin 81 mg tablet,delayed 81 mg PO QPM 03/29/22 04/08/22 History release dabigatran etexilate 150 mg 150 mg PO BID 03/29/22 04/08/22 History capsule (Pradaxa) docusate sodium 100 mg capsule 100 mg PO QPM 03/29/22 04/08/22 History (Colace) escitalopram oxalate 5 mg tablet 5 mg PO QAM 03/29/22 04/08/22 History (Lexapro) omeprazole 20 mg capsule,delayed 20 mg PO QAM 03/29/22 04/08/22 History release prednisone 20 mg tablet 20 mg PO QPM 03/29/22 04/08/22 History vitamin B complex 1 tab PO QAM 03/29/22 04/08/22 History enoxaparin 80 mg/0.8 mL 80 mg subcut DAILY 04/07/22 04/08/22 History subcutaneous syringe (Lovenox) Patient History Medical History Aneurysm of MCA Anxiety Aortic stenosis Moderate per 06/04/20 ECHO Arthritis Atrial fibrillation Single episode, Follows Dr. Huertas CAD (coronary artery disease) Mild to moderate nonobstructive CAD per 2017 cardiac cath Chronic obstructive pulmonary disease Depression Enlarged prostate History of GI bleed recent 01/10/21 Hypertension Kidney lesion UROLOGY FOLLOWING Lung nodule Under surveillance by [facility] [place] pulmonary Mass of colon S/P GIB/bowel resection 01/2021 PAD (peripheral artery disease) S/p CEA (left side-2017) > Follows with vascular (Dr. Alcaraz) > no deficits Polymyalgia rheumatica REASON FOR PREDNISONE Short-term memory loss Stroke 2017 + 02/02/22 (SPEECH EFFECTED AT TIME OF STROKE>NO CURRENT ISSUES) REASON FOR PRADAXA Subclavian steal syndrome of left subclavian artery TIA (transient ischemic attack) 2011 Surgical History Carotid artery disorder Left CEA ([facility]) H/O carotid endarterectomy left H/O exploratory laparotomy Exploratory Laparotomy with Abdominal Washout and Fascial Closure (02/11/21) History of adenoidectomy History of anesthesia reaction Hypotension with colonoscopy (one episode) History of appendectomy History of bowel resection 02/05/2021 History of cardiac cath x3 (2011, 2013, 2016) > no stents History of cataract surgery R/L History of colonoscopy x3 History of esophagogastroduodenoscopy (EGD) History of herniorrhaphy R/L INGUINAL History of loop recorder PLACED 2019/PRESENT History of tonsillectomy History of total hip arthroplasty LEFT Family History Brother Family history of diabetes mellitus Cancer Diabetes Aunt Breast cancer Father Heart disease Other No family history of adverse response to anesthesia Denies family history of Lung disease Asthma Social History Smoking Status: Former smoker Tobacco Type: Cigarettes packs per day: 1; Second Hand Exposure: No; Hx Alcohol Use: No Hx Substance Use: No Preferred Language: Polish Communication Ability: Effective 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 Beliefs That Will Affect Care: None marital status: Current Living Situation: Spouse current occupational status: retired How many Children do You have: 3 Feels Safe at Home: Yes Assistive Devices: Denture - Upper, Denture - Lower, Glasses and Walker Review of Systems Review of Systems: Unobtainable due to reduced consciousness (recent anesthesia) Physical Exam Constitutional: WD/WN, vitals as above Eyes: EOM intact bilaterally Neck: normal visual inspection Respiratory: normal respiratory effort, lungs clear to auscultation Cardiovascular: Rate/Rhythm: regular rate and regular rhythm Gastrointestinal (Abdomen): Inspection/Auscultation: abdomen normal to inspection and normal bowel sounds; abdomen not distended Percussion/Palpation: abdomen soft; abdomen nontender Musculoskeletal: Extremities: extremities normal to inspection Skin: warm and dry Psychiatric: Eye Contact: good eye contact Results & Data ([facility]) Vital Signs (Past 12 Hours) Vital Signs Temp Pulse Resp BP Pulse Ox O2 Del Method O2 Flow Rate 04/08/22 09:50 60 16 122/66 96 Room Air 04/08/22 09:35 67 16 101/62 99 Oxymask 10 04/08/22 08:45 36.8 C 58 L 16 149/61 H 97 Room Air Diagnostic Findings No labs to review PG Care Time/CCT Total # of Minutes Spent Total Time Spent with Patient: Total time spent is greater than 50% in coordination of care (as documented) at patient's floor/unit and/or counseling patient: Coding Level of Care Code 36983 Initial Inpt Care Lvl 3 Diagnoses Hematochezia K92.1 Post-polypectomy bleeding
[2022-04-08 11:06] LABS: Basophils # (auto) 0.02 K/uL (0-0.2); Basophils % (auto) 0.2 %; Eosinophils # (auto) 0.09 K/uL (0-0.50); Hematocrit (blood only) 36.3 % (40.1-51.0); Hemoglobin 11.8 g/dl (14.0-18.0); Immature Granulocytes # (auto) 0.04 K/uL (0.00-0.02); Immature Granulocytes % (auto) 0.4 %; Lymphocytes # (auto) 2.72 K/uL (1.2-3.4); Lymphocytes % (auto) 30.1 %; Mean Corpuscular Hemoglobin 29.3 pg (25.0-34.0); Mean Corpuscular Hgb Conc 32.5 g/dL (32.0-36.0); Mean Corpuscular Volume 90.1 fL (80.0-100.0); Mean Platelet Volume 9.9 fL (9.4-12.4); Monocytes % (auto) 7.7 %; Neutrophils # (auto) 5.47 K/uL (1.4-6.5); Neutrophils % (auto) 60.6 %; Platelet Count 168 K/uL (130-400); RDW Coefficient of Variation 14.7 % (11.5-14.5); RDW Standard Deviation 48.9 fL (36.4-46.3); Red Blood Count 4.03 M/uL (4.63-6.08); White Blood Count 9.04 K/ul (4.8-10.8)
[2022-04-08 11:24] LABS: Albumin Globulin Ratio 1.7 (0.9-2); Albumin Level 3.3 gm/dl (3.4-5.0); Bilirubin,Total 0.4 mg/dl (0.2-1.0); Calcium 8.2 mg/dl (8.5-10.1); Creatinine Clr Calc Pharmacy 64.5 ml/min; Est GFR (African American) 95.2 ml/min; Est GFR (Non-African American) 82.1 ml/min; Potassium 3.7 mmol/L (3.5-5.1); Total Protein 5.3 gm/dl (6.0-8.3)
[2022-04-08] MEDS ORDERED: ALBUTEROL HFA 8 GM INHALER INH PRN (12:04)
[2022-04-08] MEDS ORDERED: ACETAMINOPHEN 325 MG TAB PO PRN (12:04)
[2022-04-08 17:33] LABS: Hematocrit (blood only) 36.2 % (40.1-51.0); Mean Corpuscular Hemoglobin 29.5 pg (25.0-34.0); Mean Corpuscular Hgb Conc 33.1 g/dL (32.0-36.0); Mean Corpuscular Volume 88.9 fL (80.0-100.0); Mean Platelet Volume 9.8 fL (9.4-12.4); Platelet Count 188 K/uL (130-400); RDW Coefficient of Variation 14.7 % (11.5-14.5); RDW Standard Deviation 48.1 fL (36.4-46.3); Red Blood Count 4.07 M/uL (4.63-6.08)
[2022-04-08] MEDS: ATORVASTATIN 40 MG TAB PO SCH (20:55)
[2022-04-08] MEDS: SODIUM CHLORIDE 0.9% 1000ML 1,000 ML IV SCH (20:55)
[2022-04-08] MEDS: CEROVITE ADV FORMULA TAB PO SCH (20:56)
--- NOTE | 2022-04-08 21:46 | Communication Note ---
Date of Service: April 08, 2022 Notified of transient 86/49 at 7PM. Improved by time I was messaged to 113/65 after patient being more awake. Started 100mL/hr IV fluids. Requiring nasal cannula as he later saturated 85% on room air. Recent echo w/ normal ef. 1AM: informed of admission orders. obs to med/tele, admit as inpatient to pcu. Patient currently at 288-2, VSS. Will keep at med/tele level of care for now. Nursing to notify if any change in clinical status.
[2022-04-09 08:31] LABS: Creatinine Clr Calc Pharmacy 68.6 ml/min; Est GFR (African American) 97.6 ml/min; Est GFR (Non-African American) 84.2 ml/min; Potassium 3.8 mmol/L (3.5-5.1)
[2022-04-09] MEDS: SODIUM CHLORIDE 0.9% 1000ML 1,000 ML IV SCH (09:08)
[2022-04-09] MEDS: ESCITALOPRAM OXALATE 10 MG TAB PO SCH (09:10)
[2022-04-09] MEDS: VITAMIN B COMPLEX TAB PO SCH (09:10)
[2022-04-09] MEDS: CHOLECALCIFEROL 1,000 UNITS 25 MCG TAB PO SCH (09:10)
[2022-04-09] MEDS: CEROVITE ADV FORMULA TAB PO SCH ×2 (09:10→20:04)
[2022-04-09] MEDS: PANTOprazole 40 MG TAB PO SCH (09:10)
[2022-04-09 12:07] LABS: Hematocrit (blood only) 34.4 % (40.1-51.0); Hemoglobin 11.2 g/dl (14.0-18.0); Mean Corpuscular Hemoglobin 29.6 pg (25.0-34.0); Mean Corpuscular Hgb Conc 32.6 g/dL (32.0-36.0); Mean Platelet Volume 9.7 fL (9.4-12.4); Platelet Count 180 K/uL (130-400); RDW Coefficient of Variation 14.8 % (11.5-14.5); RDW Standard Deviation 49.7 fL (36.4-46.3); Red Blood Count 3.78 M/uL (4.63-6.08); White Blood Count 9.77 K/ul (4.8-10.8)
[2022-04-09] MEDS ORDERED: predniSONE 20 MG TAB PO STA (12:36)
[2022-04-09] MEDS: ATORVASTATIN 40 MG TAB PO SCH (20:04)
--- NOTE | 2022-04-09 22:09 | Hospitalist Progress Note ---
Date of Service April 09, 2022 Assessment & Plan (1) Post-polypectomy bleeding: Plan: -Admit to med/tele -Patient is currently afebrile, hemodynamically stable, and stable on RA -S/P 500 mL IV bolus of Lactated Ringer's -Blood consent obtained from family, Type & Screen, CBC, and CMP ini process -Will then monitor H&H q8h moving forward, transfuse for Hgb < 7, recurrent major bleed, if if the patient continues to bleed and is symptomatic -Will hold home prednisone today to prevent further GI bleeding, can resume tomorrow if stable -Hold Pradaxa and Lovenox for now, family is aware there is an increased risk of clot/stroke but agree that risk of bleeding is higher at this time -Continue cclear liquid diet as recommended by GI -Spoke to GI, no need for antibiotics at this time -Will continue with PO intake for now to avoid volume overload -SCDs for DVT PPX on 04/09, hemoglobin has been stable. Blood pressure dropped however. LIkely due to hold prednisone for 48 hours as patient has beeen on this medicine for 1 month due to PMR. will resume asking discussing with family and patient risk of GI bleeding. THis should be tapered. Anticipate discharge on Monday if hemoglobin remains stable and BP improves. (2) Aortic stenosis, moderate: Plan: -Currently Euvolemic -Monitor for volume overload after IV fluids (3) CAD (coronary artery disease): Plan: -Hold aspirin for now with recent bleed (4) Atrial fibrillation: Plan: -Currently rate controlled -Hold any anticoagulation for 5 days. (5) Chronic obstructive pulmonary disease: Plan: -Continue home breathing treatments -Incentive spirometry and flutter therapy ordered (6) Hypertension: Plan: -Hold antihypertensives for now to prevent hypotension (7) History of CVA (cerebrovascular accident): Plan: -Hold pradaxa and lovenox for now (8) Polymyalgia rheumatica: Plan: -Normally on 20 mg PO prednisone daily -Last dose was last evening -Will hold dose today to prevet further GI bleeding -resumed on 04/09 due to hypotension Plan Admission and Anticipated Discharge Date Admission Date: April 08, 2022 Subjective Patient reports feeling well. No new complaints. Review of Systems Review of Systems: All systems reviewed & are unremarkable except as noted in HPI & below Physical Exam Physical Exam: General: In no acute distress, stated age, chronically ill-appearing. HEENT: Normocephalic, atraumatic, no scleral icterus, pupils around round, symmetrical, and reactive to light, dry mucus membranes, trachea midline, no thyromegaly Chest/Pulm: No respiratory distress, symmetrical chest expansion, clear breath sounds throughout Cardiac: RRR, systolic murmur noted Abdomen: Negative for ascites and bruising, normoactive bowel sounds, soft, non-tender to palpation throughout Musculoskeletal: Symmetrical and without signs of acute trauma, upper and lower extremities with full ROM, no atrophy, spasticity, or flaccidity Extremities: Radial, dorsalis pedis, and posterior tibial pulses are intact and symmetrical, no edema noted in the BL LE's Skin: Warm, dry, no rashes , lesions, or scars noted Neuro: Alert and oriented to person only, patient noted to have lip smacking and tongue movements consistent with TD, CN II-XII tested and intact Psych: No acute distress, pleasantly confused and cooperative during the exam Results & Data Results & Data ([facility]) Vital Signs (Past 12 Hours) Vital Signs Temp Pulse Pulse Resp BP Pulse Ox O2 Del Method 04/09/22 19:13 36.7 C 98 H 18 97/55 L 99 Room Air 04/09/22 14:19 61 04/09/22 16:15 36.5 C 63 20 100/48 L 96 Room Air 04/09/22 12:06 36.6 C 55 L 20 82/40 L 97 Room Air PG Care Time/CCT Total # of Minutes Spent Total Time Spent with Patient: Total time spent is greater than 50% in coordination of care (as documented) at patient's floor/unit and/or counseling patient: Coding Level of Care Code 82033 Subseq Hosp Care Lvl 3 Diagnoses Post-polypectomy bleeding Aortic stenosis, moderate I35.0 CAD (coronary artery disease) I25.10 Atrial fibrillation I48.91 Chronic obstructive pulmonary disease J44.9 Hypertension I10 History of CVA (cerebrovascular accident) Z86.73 Polymyalgia rheumatica M35.3 Time Spent (min) 35
[2022-04-10 07:39] LABS: Hematocrit (blood only) 33.2 % (40.1-51.0); Hemoglobin 11.1 g/dl (14.0-18.0); Mean Corpuscular Hemoglobin 29.6 pg (25.0-34.0); Mean Corpuscular Hgb Conc 33.4 g/dL (32.0-36.0); Mean Corpuscular Volume 88.5 fL (80.0-100.0); Platelet Count 180 K/uL (130-400); RDW Coefficient of Variation 14.5 % (11.5-14.5); RDW Standard Deviation 46.3 fL (36.4-46.3); Red Blood Count 3.75 M/uL (4.63-6.08)
[2022-04-10] MEDS: ESCITALOPRAM OXALATE 10 MG TAB PO SCH (08:05)
[2022-04-10] MEDS: CEROVITE ADV FORMULA TAB PO SCH ×2 (08:05→20:47)
[2022-04-10] MEDS: CHOLECALCIFEROL 1,000 UNITS 25 MCG TAB PO SCH (08:05)
[2022-04-10] MEDS: PANTOprazole 40 MG TAB PO SCH (08:05)
[2022-04-10] MEDS: VITAMIN B COMPLEX TAB PO SCH (08:05)
[2022-04-10 08:08] LABS: BUN Creatinine Ratio 21.6 (10-20); Calcium 9.1 mg/dl (8.5-10.1); Creatinine Clr Calc Pharmacy 61.6 ml/min; Est GFR (African American) 93.4 ml/min; Est GFR (Non-African American) 80.6 ml/min
--- NOTE | 2022-04-10 11:32 | Hospitalist Progress Note ---
Date of Service April 10, 2022 Assessment & Plan (1) Post-polypectomy bleeding: Plan: -Patient is currently afebrile, hemodynamically stable, and stable on RA -Blood consent obtained from family, Type & Screen, CBC, and CMP ini process -Hold Pradaxa and Lovenox for now, family is aware there is an increased risk of clot/stroke but agree that risk of bleeding is higher at this time -SCDs for DVT PPX 04/10 - ongoing extensive bright red blood in stool, will switch back to clear liquids and NPO after midnight in case of need for further intervention if ongoing bleeding (2) Aortic stenosis, moderate: Plan: -Currently Euvolemic -Monitor for volume overload after IV fluids (3) CAD (coronary artery disease): Plan: -Hold aspirin for now with recent bleed (4) Atrial fibrillation: Plan: -Currently rate controlled -Hold any anticoagulation for 5 days per GI - possibly longer (5) Chronic obstructive pulmonary disease: Plan: -Continue home breathing treatments -Incentive spirometry and flutter therapy ordered (6) Hypertension: Plan: -Hold antihypertensives for now to prevent hypotension (7) History of CVA (cerebrovascular accident): Plan: -Hold pradaxa and lovenox for now (8) Polymyalgia rheumatica: Plan: -Normally on 20 mg PO prednisone daily, continue on this. UGI bleed not suspected Plan Admission and Anticipated Discharge Date Admission Date: April 08, 2022 Subjective Had a large bright red blood bowel movement today. No chest pain, shortness of breath or dizziness. Updated his over the phone. Review of Systems Review of Systems: All systems reviewed & are unremarkable except as noted in Subjective Physical Exam Constitutional: WD/WN, vitals as above Respiratory: normal respiratory effort, lungs clear to auscultation Cardiovascular: RRR, no murmur, no edema Gastrointestinal (Abdomen): normal bowel sounds, soft, nontender, no hepatosplenomegaly Psychiatric: A+Ox3, euthymic affect Results & Data Results & Data ([facility]) Vital Signs (Past 12 Hours) Vital Signs Temp Pulse Resp BP Pulse Ox O2 Del Method 04/10/22 11:25 36.6 C 62 20 109/60 96 Room Air 04/10/22 07:31 36.5 C 58 L 20 124/72 96 Room Air 04/10/22 02:45 36.5 C 60 18 120/68 96 Room Air PG Care Time/CCT Total # of Minutes Spent Total Time Spent with Patient: Total time spent is greater than 50% in coordination of care (as documented) at patient's floor/unit and/or counseling patient: Coding Level of Care Code 40565 Subseq Hosp Care Lvl 2 Diagnoses Post-polypectomy bleeding Aortic stenosis, moderate I35.0 CAD (coronary artery disease) I25.10 Atrial fibrillation I48.91 Chronic obstructive pulmonary disease J44.9 Hypertension I10 History of CVA (cerebrovascular accident) Z86.73 Polymyalgia rheumatica M35.3
[2022-04-10 17:07] LABS: Hematocrit (blood only) 33.6 % (40.1-51.0); Hemoglobin 11.4 g/dl (14.0-18.0)
[2022-04-10] MEDS: predniSONE 20 MG TAB PO SCH (20:47)
[2022-04-10] MEDS: ATORVASTATIN 40 MG TAB PO SCH (20:47)
[2022-04-11 07:29] LABS: Basophils # (auto) 0.01 K/uL (0-0.2); Basophils % (auto) 0.2 %; Eosinophils # (auto) 0.01 K/uL (0-0.50); Eosinophils % (auto) 0.2 %; Hematocrit (blood only) 32.2 % (40.1-51.0); Hemoglobin 10.8 g/dl (14.0-18.0); Immature Granulocytes # (auto) 0.05 K/uL (0.00-0.02); Immature Granulocytes % (auto) 0.8 %; Lymphocytes # (auto) 1.41 K/uL (1.2-3.4); Lymphocytes % (auto) 22.3 %; Mean Corpuscular Hemoglobin 29.6 pg (25.0-34.0); Mean Corpuscular Hgb Conc 33.5 g/dL (32.0-36.0); Mean Corpuscular Volume 88.2 fL (80.0-100.0); Mean Platelet Volume 10.1 fL (9.4-12.4); Monocytes # (auto) 0.42 K/uL (0.24-0.82); Monocytes % (auto) 6.7 %; Neutrophils # (auto) 4.41 K/uL (1.4-6.5); Neutrophils % (auto) 69.8 %; Platelet Count 178 K/uL (130-400); RDW Coefficient of Variation 14.6 % (11.5-14.5); RDW Standard Deviation 46.5 fL (36.4-46.3); Red Blood Count 3.65 M/uL (4.63-6.08); White Blood Count 6.31 K/ul (4.8-10.8)
[2022-04-11 07:48] LABS: BUN Creatinine Ratio 14.9 (10-20); Calcium 8.5 mg/dl (8.5-10.1); Creatinine Clr Calc Pharmacy 57.6 ml/min; Est GFR (African American) 87.8 ml/min; Est GFR (Non-African American) 75.7 ml/min; Potassium 3.9 mmol/L (3.5-5.1)
[2022-04-11] MEDS: VITAMIN B COMPLEX TAB PO SCH (07:49)
[2022-04-11] MEDS: PANTOprazole 40 MG TAB PO SCH (07:49)
[2022-04-11] MEDS: ESCITALOPRAM OXALATE 10 MG TAB PO SCH (07:49)
[2022-04-11] MEDS: CEROVITE ADV FORMULA TAB PO SCH ×2 (07:49→20:42)
[2022-04-11] MEDS: CHOLECALCIFEROL 1,000 UNITS 25 MCG TAB PO SCH (07:50)
--- NOTE | 2022-04-11 15:43 | Hospitalist Progress Note ---
Date of Service April 11, 2022 Assessment & Plan (1) Post-polypectomy bleeding: Plan: -Patient is currently afebrile, hemodynamically stable, and stable on RA -Blood consent obtained from family, Type & Screen, CBC, and CMP ini process -Hold Pradaxa and Lovenox for now, family is aware there is an increased risk of clot/stroke but agree that risk of bleeding is higher at this time -SCDs for DVT PPX 04/11 - Davi Alcazar this morning. No further bloody bowel movements today. (2) Aortic stenosis, moderate: Plan: -Currently Euvolemic -Monitor for volume overload after IV fluids (3) CAD (coronary artery disease): Plan: -Hold aspirin for now with recent bleed (4) Atrial fibrillation: Plan: -Currently rate controlled -Hold any anticoagulation for 5 days per GI - possibly longer (5) Chronic obstructive pulmonary disease: Plan: -Continue home breathing treatments -Incentive spirometry and flutter therapy ordered (6) Hypertension: Plan: -Hold antihypertensives for now to prevent hypotension (7) History of CVA (cerebrovascular accident): Plan: -Hold pradaxa and lovenox for now (8) Polymyalgia rheumatica: Plan: -Normally on 20 mg PO prednisone daily, continue on this. UGI bleed not suspected Plan Admission and Anticipated Discharge Date Admission Date: April 08, 2022 Subjective No further bloody bowel movements today. He has not had a bowel movement today. No nausea, vomiting, abdominal pain. Review of Systems Review of Systems: All systems reviewed & are unremarkable except as noted in Subjective Physical Exam Constitutional: WD/WN, vitals as above Respiratory: normal respiratory effort, lungs clear to auscultation Cardiovascular: RRR, no murmur, no edema Gastrointestinal (Abdomen): normal bowel sounds, soft, nontender, no hepa tosplenomegaly Psychiatric: A+Ox3, euthymic affect Results & Data Results & Data ([facility]) Vital Signs (Past 12 Hours) Vital Signs Temp Pulse Resp BP Pulse Ox O2 Del Method 04/11/22 15:17 36.7 C 65 20 112/64 94 Room Air 04/11/22 12:01 36.7 C 58 L 20 116/62 96 Room Air 04/11/22 07:00 36.8 C 60 18 111/58 L 95 Room Air PG Care Time/CCT Total # of Minutes Spent Total Time Spent with Patient: Total time spent is greater than 50% in coordination of care (as documented) at patient's floor/unit and/or counseling patient: Coding Level of Care Code 24240 Subseq Hosp Care Lvl 2 Diagnoses Post-polypectomy bleeding Aortic stenosis, moderate I35.0 CAD (coronary artery disease) I25.10 Atrial fibrillation I48.91 Chronic obstructive pulmonary disease J44.9 Hypertension I10 History of CVA (cerebrovascular accident) Z86.73 Polymyalgia rheumatica M35.3
[2022-04-11] MEDS: ATORVASTATIN 40 MG TAB PO SCH (20:42)
[2022-04-11] MEDS: predniSONE 20 MG TAB PO SCH (20:42)
[2022-04-12 06:30] LABS: Hematocrit (blood only) 32.9 % (40.1-51.0); Hemoglobin 11.1 g/dl (14.0-18.0); Mean Corpuscular Hemoglobin 29.6 pg (25.0-34.0); Mean Corpuscular Hgb Conc 33.7 g/dL (32.0-36.0); Mean Corpuscular Volume 87.7 fL (80.0-100.0); Platelet Count 218 K/uL (130-400); RDW Coefficient of Variation 14.7 % (11.5-14.5); RDW Standard Deviation 46.9 fL (36.4-46.3); Red Blood Count 3.75 M/uL (4.63-6.08)
[2022-04-12] MEDS: VITAMIN B COMPLEX TAB PO SCH (08:03)
[2022-04-12] MEDS: CHOLECALCIFEROL 1,000 UNITS 25 MCG TAB PO SCH (08:03)
[2022-04-12] MEDS: CEROVITE ADV FORMULA TAB PO SCH (08:03)
[2022-04-12] MEDS: ESCITALOPRAM OXALATE 10 MG TAB PO SCH (08:03)
[2022-04-12] MEDS: PANTOprazole 40 MG TAB PO SCH (08:03)
--- NOTE | 2022-04-12 14:34 | Discharge Summary ---
Date of Service April 12, 2022 Admission HPI Per Admitting Provider Andrzej is an 81yo male with history of moderate , AF, CAD, COPD, HTN, s/p L SRAVANI, hx of menendez aneurysm, polymyalgia rheumatica, previous CVA (on Pradaxa) and previous colon cancer who presented to the [facility] endoscopy suite today due to hematochezia after his colonoscopy yesterday with Dr. Dodd. Per chart review, the patient's colonoscopy yesterday was a routine surveillance procedure due to his previous history of colon cancer. Per the report from yesterday, multiple polyps were found and removed in the ascending colon, there was no bleeding seen at the time of polyp removal yesterday. At the time of my exam the patient was resting comfortably in bed in no acute distress with his and daughter sitting bedside. He was noted to be afebrile, hemodynamically stable, and stable on room air. The majority of the history was obtained from the patient's and daughter due to baseline confusion due to his previous strokes. His confirmed that his colonoscopy yesterday was surveillance due to his history of colon cancer. She explained that his last dose of Pradaxa was on 04/03/22. Due to his stroke history he had been bridged on Lovenox while off Pradaxa, his last dose of Lovenox was on 04/06. The patient's states that this morning when he woke he went to the bathroom to have a bowel movement and they noticed large amounts of bright red blood, which is why they came back to the hospital. The patient has confusion at baseline, if he is not at home then his baseline will be alert and oriented to self. His and daughter also explained that he has known tardive dyskinesia. I went of a blood consent with his (POA) and daughter at bedside. They are in agreement with a blood transfusion if needed and they both signed the consent. We had a long discussion regarding code status, they would not want CPR or defibrillation in the even of cardiac arrest but would want a trial of intubation if needed. When asked, the patient any pain or discomfort at the time of the exam. The patient had been given 500 mL of Ringer's Lactate before my arrival. His and daughter explained that he has a history of respiratory failure from too much IV fluids on previous admissions and wanted to make sure I was aware. Please refer to Dr. Lewis's attestation for any changes to the treatment plan. Discharge Data Allergies Allergy/AdvReac Type Severity Reaction Status Date / Time shellfish derived AdvReac Severe "Violent" Verified 04/08/22 08:33 vomiting alfuzosin AdvReac Intermediate BP dropped Verified 04/08/22 08:33 Consultations 04/08/22 18:53 Consult Gastroenterology Routine Procedures Performed Operation Date: 04/08/22 14:05 Actual Procedures p Colonoscopy Hemostasis - Conner Dodd MD Hospital Course (1) Post-polypectomy bleeding: -Patient is currently afebrile, hemodynamically stable, and stable on RA -Blood consent obtained from family, Type & Screen, CBC, and CMP ini process -Hold Pradaxa and Lovenox for now, family is aware there is an increased risk of clot/stroke but agree that risk of bleeding is higher at this time -SCDs for DVT PPX 04/11 - [employer] Dr Alcazar this morning. No further bloody bowel movements today. (2) Aortic stenosis, moderate: -Currently Euvolemic -Monitor for volume overload after IV fluids (3) CAD (coronary artery disease): -Hold aspirin for now with recent bleed (4) Atrial fibrillation: -Currently rate controlled -Hold any anticoagulation for 5 days per GI - possibly longer (5) Chronic obstructive pulmonary disease: -Continue home breathing treatments -Incentive spirometry and flutter therapy ordered (6) Hypertension: -Hold antihypertensives for now to prevent hypotension (7) History of CVA (cerebrovascular accident): -Hold pradaxa and lovenox for now (8) Polymyalgia rheumatica: -Normally on 20 mg PO prednisone daily, continue on this. UGI bleed not suspected Plan Discharge Plan Discharge Items Patient Disposition: Home - Self-Care Reason For Visit: HEMATOCHEZIA Discharge Diagnosis: Post polypectomy bleeding Activity: Resume your previous activity Non-emergency contact: Chemical Treatment Operator Call non-emergency contact if: you have any medication questions and your symptoms worsen Follow-up/Referrals: Mami Kebede MD [Primary Care Provider] - Diet: Low Fiber Addtl Attending Provider Instructions: You were admitted to [facility] from April 08 - 2021 due to post colonoscopy bleeding. Pradaxa was held and bleeding improved. Your hemoglobin has remained stable. Please resume your aspirin tomorrow and your Pradaxa on April 18. Hemoglobin 11.1 g/dL on discharge. Hold amlodipine due to low normal blood pressure until follow up with your primary care physician. Kind regards, Dr Jerry Wall Pending Studies at Discharge: No Stand-Alone Forms: My [facility], Smoking Cessation Medications and DC Order Prescriptions: Continued atorvastatin [Lipitor] 40 mg tablet 40 mg PO QPM albuterol sulfate [Ventolin HFA] 90 mcg/actuation HFA aerosol inhaler 2 puff inhalation Q6H PRN (Reason: Wheezing) nitroglycerin [Nitrostat] 0.4 mg tablet, sublingual 0.4 mg sublingual Q5M PRN (Reason: Chest Pain) Rx Instructions: do not exceed 3 doses per episode PreserVision AREDS [id number] capsule 1 cap PO BID cholecalciferol (vitamin D3) [Vitamin D3] 25 mcg (1,000 unit) Tablet,Chewable 25 mcg PO QAM prednisone 20 mg Tablet 20 mg PO QPM Label Comments: NEW RX/RECENT DX OF POLYMALGIA RHEUMATICA docusate sodium [Colace] 100 mg Capsule 100 mg PO QPM omeprazole 20 mg Capsule,Delayed Release(Dr/Ec) 20 mg PO QAM vitamin B complex Tablet 1 tab PO QAM escitalopram oxalate [Lexapro] 5 mg Tablet 5 mg PO QAM aspirin 81 mg tablet,delayed release (DR/EC) 81 mg PO QPM dabigatran etexilate [Pradaxa] 150 mg Capsule 150 mg PO BID Qty: 1 0RF Label Comments: SPEAKING WITH STROKE CLINIC TO BRIDGE OFF PRADAXA WITH LOVENOX Rx Instructions: resume April 18, 2022 Discontinued amlodipine [Norvasc] 5 mg Tablet 5 mg PO QAM enoxaparin [Lovenox] 80 mg/0.8 mL Syringe 80 mg SUBCUT DAILY Discharge Orders: Discharge Order (Routine); Ordered 04/12/22 Ordered By: Jerry Miramontes/Other Patient Handouts: Low-Fiber Diet Admission Data Admit Date/Time: 04/08/22 18:55 Attending Provider: Jerry Wall Admit Provider: Aris Lewis Primary Care Provider: Mami Kebede Other Providers: Conner Dodd Other Interventions: Discharge Summary Assessment (RN) Last Done: 04/12/22 11:52 Coding Diagnoses Post-polypectomy bleeding Aortic stenosis, moderate I35.0 CAD (coronary artery disease) I25.10 Atrial fibrillation I48.91 Chronic obstructive pulmonary disease J44.9 Hypertension I10 History of CVA (cerebrovascular accident) Z86.73 Polymyalgia rheumatica M35.3
== END 2022-04-12 15:29 | disposition home or self-care (01) | DRG 920 ==
LOC: 2N 08:15 → ENDO 08:15 → SUATTDRO 18:55